=== PATIENT | male | born 1965 | race Caucasian/White ===

== ENCOUNTER 2017-01-03 11:36 | Emergency (ER) | payer MEDICARE, OTHER, SELFPAY | END 2017-01-03 14:17 | disposition short-term general hospital (02) | PROVIDERS: Emergency Provider Emergency Medicine; Visit Provider Emergency Medicine | DX: I50.40 Unspecified combined systolic (congestive) and diastolic (congestive) heart failure (principal); I42.9 Cardiomyopathy, unspecified; N17.9 Acute kidney failure, unspecified; J90 Pleural effusion, not elsewhere classified; Z87.891 Personal history of nicotine dependence; R06.02 Shortness of breath; Z79.01 Long term (current) use of anticoagulants; Z79.899 Other long term (current) drug therapy | CPT/HCPCS: 71020; 80053; 82272; 82550; 82553; 83735; 83880; 84484; 85025; 85610; 85730; 93005; 93041; 96374; 96375; 99284; G0328; J2405 ==

== ENCOUNTER 2017-05-09 20:18 | Emergency (ER) | payer MEDICARE, OTHER, SELFPAY ==
[2017-05-09 20:21] VITALS: BP 121/75; PULSE 97; RESP 18; TEMP 36.8; O2SAT 99; BMI 26.4
[2017-05-09 20:36] VITALS: TEMP 36.8; O2SAT 97; BMI 29.2
[2017-05-09 21:22] VITALS: BP 121/75; PULSE 97; RESP 18; TEMP 36.8; O2SAT 97; BMI 29.2
--- NOTE | 2017-05-09 21:31 | PC.NURSE ---
2054 PATIENT STATED HE DID NOT WANT TO WAIT. LEFT DURING TRIAGE
== END 2017-05-09 21:20 | disposition left against medical advice (07) ==
LOC: ER 21:41
PROVIDERS: Emergency Provider Emergency Medicine
DX: Z53.29 Procedure and treatment not carried out because of patient's decision for other reasons (principal)
CPT/HCPCS: 99282

== ENCOUNTER → 2017-12-25 09:31 | Outpatient (CLI) | payer MEDICARE, OTHER, SELFPAY ==
[2017-12-25 13:50] LABS: Alanine Aminotransferase 44 U/L (12-78); Albumin/Globulin Ratio 1.3 (1.1-1.8); Alkaline Phosphatase 89 U/L (46-116); Anion Gap 9.2 mEq/L (5-15); Aspartate Amino Transferase 18 U/L (15-37); Bilirubin,Total 0.6 mg/dL (0.2-1.0); Blood Urea Nitrogen 21 mg/dL (7-18); Carbon Dioxide 34 mmol/L (21.0-32.0); Chloride 102 mmol/L (98-107); Cholesterol 165 mg/dL (140-200); Creatinine,Serum 1.42 mg/dL (0.70-1.30); Estimated Glomerular Filt Rate 52 ml/min (>60); GFR (African American) 63 ML/MIN (>60); Globulin 3.1 gm/dl (1.3-3.2); Glucose 92 mg/dL (74-106); HDL Cholesterol 33 mg/dL (27-67); LDL Cholesterol 94 mg/dL (0-130); Potassium 4.2 mmoL/L (3.5-5.1); Sodium 141 mmol/L (136-145); Total Protein,Serum 7.1 gm/dL (6.4-8.2); Triglycerides 189 mg/dL (30-200); VLDL Cholesterol 38 mg/dL (0-40)
[2017-12-25 14:14] LABS: Basophils % 0.4 % (0.1-2.0); Eosinophils # 0.3 K/mm3 (0.0-0.4); Eosinophils % 3.4 % (0.1-12.0); Lymphocytes # 0.8 K/mm3 (0.7-4.5); Lymphocytes % 8.7 K/mm3 (10-50); Mean Corpuscular HGB Conc 32.7 g/dL (31.8-35.4); Mean Corpuscular Hemoglobin 29.4 pg (27.0-31.2); Mean Corpuscular Volume 89.9 fl (80-94); Mean Platelet Volume 7.4 fl (7.4-10.4); Monocytes # 0.6 K/mm3 (0.1-1.0); Monocytes % 6.4 % (1.7-9.3); Neutrophils # 7.1 K/mm3 (1.8-7.8); Neutrophils % 81.1 % (37.0-80.0); Platelet Count 245 K/mm3 (142-424); Red Blood Count 5.11 M/mm3 (4.60-6.20); Red Cell Distribution Width 13.4 % (11.5-17.5); White Blood Count 8.8 K/mm3 (4.8-10.8)
== END ==
PROVIDERS: Visit Provider Internal Medicine Adolescent Medicine
DX: I25.10 Atherosclerotic heart disease of native coronary artery without angina pectoris (principal); E78.5 Hyperlipidemia, unspecified
CPT/HCPCS: 36415; 80053; 80061; 85025

== ENCOUNTER → 2018-02-17 14:36 | Outpatient (CLI) | payer MEDICARE, OTHER, SELFPAY ==
[2018-02-17 14:51] LABS: Basophils # 0.1 K/mm3 (0-0.2); Basophils % 0.7 % (0.1-2.0); Eosinophils # 0.4 K/mm3 (0.0-0.4); Hematocrit 45.7 % (42.0-52.0); Hemoglobin 15.1 g/dL (14.1-18.0); Lymphocytes # 1.1 K/mm3 (0.7-4.5); Mean Corpuscular Hemoglobin 29.3 pg (27.0-31.2); Mean Corpuscular Volume 88.9 fl (80-94); Mean Platelet Volume 7.9 fl (7.4-10.4); Monocytes # 0.8 K/mm3 (0.1-1.0); Monocytes % 8.4 % (1.7-9.3); Neutrophils # 6.8 K/mm3 (1.8-7.8); Neutrophils % 74.9 % (37.0-80.0); Platelet Count 298 K/mm3 (142-424); Red Blood Count 5.14 M/mm3 (4.60-6.20); Red Cell Distribution Width 13.3 % (11.5-17.5); White Blood Count 9.1 K/mm3 (4.8-10.8)
[2018-02-17 15:23] LABS: Anion Gap 11.3 mEq/L (5-15); Blood Urea Nitrogen 19 mg/dL (7-18); Calcium 9.1 mg/dL (8.5-10.1); Carbon Dioxide 32 mmol/L (21.0-32.0); Chloride 103 mmol/L (98-107); Creatinine,Serum 1.28 mg/dL (0.70-1.30); Estimated Glomerular Filt Rate 59 ml/min (>60); GFR (African American) 71 ML/MIN (>60); Glucose 100 mg/dL (74-106); Potassium 4.3 mmoL/L (3.5-5.1); Sodium 142 mmol/L (136-145)
== END ==
PROVIDERS: Family Provider Internal Medicine Adolescent Medicine; PCP Internal Medicine Adolescent Medicine; Visit Provider Surgery
DX: K40.90 Unilateral inguinal hernia, without obstruction or gangrene, not specified as recurrent (principal)
CPT/HCPCS: 36415; 80048; 85025

== ENCOUNTER → 2018-06-18 11:36 | Outpatient (CLI) | payer MEDICARE, OTHER, SELFPAY ==
[2018-06-18 16:22] LABS: Amphetamine/Metha Screen,Urine Negative ng/mL (<1000); Barbiturates Screen,Urine Negative ng/mL (<200); Benzodiazepines Screen,Urine Negative ng/mL (<200); Cannabinoid Screen,Urine Negative ng/mL (<50); Cocaine Screen,Urine Negative ng/mL (<300); Methadone Screen,Urine Negative ng/mL (<300); Opiate Screen,Urine Positive ng/mL (<300); Phencyclidine Screen,Urine Negative ng/mL (<25)
[2018-06-24 10:14] LABS: Codeine Negative (Cutoff=100); Hydrocodone Positive (.); Hydromorphone Positive (.); Morphine Negative (Cutoff=100)
[2018-06-24 10:38] LABS: Opiates Positive (.)
== END ==
PROVIDERS: PCP Internal Medicine Adolescent Medicine; Visit Provider Physical Medicine & Rehabilitation
DX: Z79.899 Other long term (current) drug therapy (principal); S39.82XA Other specified injuries of lower back, initial encounter
CPT/HCPCS: 80305; 80361; 80365; G0480

== ENCOUNTER → 2019-06-11 11:11 | Outpatient (CLI) | payer MEDICARE, OTHER, SELFPAY ==
[2019-06-11 14:05] LABS: Amphetamine/Metha Screen,Urine Negative ng/mL (<1000); Barbiturates Screen,Urine Negative ng/mL (<200); Benzodiazepines Screen,Urine Negative ng/mL (<200); Cannabinoid Screen,Urine Negative ng/mL (<50); Cocaine Screen,Urine Negative ng/mL (<300); Methadone Screen,Urine Negative ng/mL (<300); Opiate Screen,Urine Positive ng/mL (<300); Phencyclidine Screen,Urine Negative ng/mL (<25)
[2019-06-17 15:09] LABS: Codeine Negative (Cutoff=100); Hydrocodone Positive (.); Hydromorphone Negative (Cutoff=100); Morphine Negative (Cutoff=100)
[2019-06-17 16:28] LABS: Opiates Positive (.)
== END ==
PROVIDERS: Visit Provider Physical Medicine & Rehabilitation
DX: Z79.899 Other long term (current) drug therapy (principal)
CPT/HCPCS: 80305; 80361; 80365; G0480

== ENCOUNTER → 2020-05-17 11:42 | Outpatient (CLI) | payer MEDICARE, OTHER, SELFPAY ==
[2020-05-17 14:09] LABS: Amphetamine/Metha Screen,Urine Negative ng/ml (<1000)
[2020-05-17 14:10] LABS: Barbiturates Screen,Urine Negative ng/ml (<200)
[2020-05-17 14:11] LABS: Benzodiazepines Screen,Urine Negative ng/ml (<200); Cannabinoid Screen,Urine Negative ng/ml (<50)
[2020-05-17 14:12] LABS: Cocaine Screen,Urine Negative ng/ml (<300)
[2020-05-17 14:13] LABS: Methadone Screen,Urine Negative ng/ml (<300); Opiate Screen,Urine Positive ng/ml (<300)
[2020-05-17 14:14] LABS: Phencyclidine Screen,Urine Negative ng/ml (<25)
[2020-05-24 06:24] LABS: Codeine Negative (Cutoff=100); Hydrocodone Positive (.); Hydromorphone Positive (.); Morphine Negative (Cutoff=100)
[2020-05-25 10:35] LABS: Hydrocodone Confirm 418 ng/mL (Cutoff=100); Hydromorphone Confirm 133 ng/mL (Cutoff=100); Opiates Positive (.)
== END ==
PROVIDERS: Visit Provider Physical Medicine & Rehabilitation
DX: M54.5 Low back pain (principal); S39.82XD Other specified injuries of lower back, subsequent encounter; Z79.899 Other long term (current) drug therapy
CPT/HCPCS: 80305; 80361; G0480

== ENCOUNTER → 2020-08-05 15:03 | Outpatient (CLI) | payer MEDICARE, OTHER, SELFPAY ==
--- NOTE | 2020-08-05 15:07 | CT_ITS ---
PROCEDURE: CT LUMBAR SPINE WO CON CLINICAL HISTORY: LUMBAR NEURALGIA COMPARISON: CT ABDPELW/O CT ABD PELVIS W/O CONTRAST from 01/10/2017 TECHNIQUE: Axial images obtained with sagittal and coronal reformats. All CT scans at the facility use one or more dose reduction, viz: automated exposure control, ma/kV adjustment per patient size (including targeted exams where dose is matched to indication, i.e. head), or iterative reconstruction technique. FINDINGS: There is minimal levoscoliosis of the lumbar spine centered at L1-2 level. Multilevel degenerative changes with endplate sclerosis, loss of disc height and facet joint arthropathy is noted, worse in the lower lumbar levels. Vascular calcification is noted. Diverticula of the visualized colon. The visualized right lung base is clear. Disc osteophyte complexes noted at multiple levels causes mild to moderate canal and bony foraminal narrowing as described below; T12-L1: Mild bilateral facet joint hypertrophy causes mild to moderate right foraminal narrowing. No significant canal or left foraminal narrowing. L1-2: Broad-based disc osteophyte complex, bilateral facet joint hypertrophy is noted causes moderate canal narrowing. There is moderate to severe right and moderate left foraminal narrowing. L2-3: Small broad-based disc bulge, and bilateral facet joint hypertrophy is noted causes mild canal and bilateral foraminal narrowing. L3-4: Broad-based disc osteophyte complex and bilateral uncovertebral hypertrophic change causes moderate to severe canal, and bilateral foraminal narrowing. L4-5: Broad-based disc osteophyte complex, bilateral facet joint and ligamentum flavum hypertrophy causes moderate to severe bilateral foraminal narrowing. Moderate canal narrowing is noted. L5-S1: Small disc osteophyte complex and bilateral facet joint hypertrophy causes mild to moderate bilateral foraminal narrowing. No significant canal narrowing is noted at this level. IMPRESSION: Multilevel degenerative changes of the lumbar spine, worse at L1-2, L3-4 and L4-5 levels as described above. Dictated by: Lizzeth Orta 08/05/2020 17:14 Lizzeth Orta in OV 08/05/2020 17:14
== END ==
PROVIDERS: PCP Internal Medicine Adolescent Medicine; Visit Provider Internal Medicine Adolescent Medicine
DX: M54.16 Radiculopathy, lumbar region (principal)
CPT/HCPCS: 72131

== ENCOUNTER → 2020-12-13 07:31 | Outpatient (CLI) | payer MEDICARE, OTHER, SELFPAY ==
[2020-12-13 14:09] LABS: Chloride 100 mmol/L (98-107); Potassium 4.1 mmoL/L (3.5-5.1); Sodium 142 mmol/L (136-145)
[2020-12-13 14:12] LABS: Anion Gap 15.1 mEq/L (5-15); Blood Urea Nitrogen 20 mg/dl (9-20); Calcium 9.1 mg/dl (8.4-10.2); Carbon Dioxide 31 mmol/L (22.0-30.0); Estimated Glomerular Filt Rate 78 ml/min (>60); GFR (African American) 94 ML/MIN (>60); Glucose 109 mg/dl (74-100)
[2020-12-13 14:17] LABS: NT Pro Brain Natriuretic Pep. 178 pg/mL (0-125)
== END ==
PROVIDERS: Visit Provider Nurse Practitioner Acute Care
DX: I50.20 Unspecified systolic (congestive) heart failure (principal)
CPT/HCPCS: 36415; 80048; 83880

== ENCOUNTER 2021-01-18 16:34 | Emergency (ER) | payer MEDICARE, OTHER, SELFPAY ==
[2021-01-18 16:56] VITALS: BP 136/88; PULSE 98; RESP 18; TEMP 36.8; O2SAT 98; BMI 31.1
--- NOTE | 2021-01-18 17:04 | HMH.EDUTC ---
[facility] [place] Clinical Impression: Encounter for screening for COVID-19 Sinusitis Qualifiers: Sinusitis location: unspecified location Chronicity: unspecified Qualified Code(s): J32.9 - Chronic sinusitis, unspecified Disposition: Home, Self-Care Condition on Discharge: Good Instructions: Sinusitis, Sinus Headache, DI for Sinusitis, DI for COVID-19 (Suspected or Confirmed ) Additional Instructions: *Monitor Temp, Over the counter Motrin or Tylenol as directed/as needed Tylenol every 4 hours and Motrin every 6 hours (as long as your family doctor has told you that you can take it) for fever or pain. and straight to ER if unable to lower temp less than 101.0 after medication given *Warm salt water gargles may help to soothe the throat *Throat Lozenges *Warm fluids like tea with honey may help to soothe the throat *Sleep elevated *Humidifier/Vaporizer Start Oral antibiotics tomorrow Follow up IMMEDIATELY for new or worsening symptoms or no Noticeable improvement over the next 48-72 hours. 911 for difficulty breathing or swallowing You were tested for today for COVID19 your test result should be back in the next 24-48 hours You were tested for today for COVID19 your test result should be back in the next 24-48 hours, You was given a handout with how to log onto [facility] portal to get your results if you have issues logging on or no internet access you may call the [facility] [place] for your results You was given a handout with instructions for Self Quarantine and Self isolation for while you wait on test results and what to do if they are positive If you are positive the Health Dept will be contacting you also Prescriptions: Amoxicillin/Potassium Clav [Augmentin 875-125 Tablet] 1 tab PO Q12H 7 Days #14 tab Transmission Status: Received by [facility] Fluticasone Propionate [Flonase 50mcg nasal spray 16gm] 1 spr NS DAILY #1 each Transmission Status: Received by [facility] Referrals: Armin Leone MD [Primary Care Provider] - As needed Forms: Work/School Release Medical Decision Making - Sandoval Inquiry Pt receiving controlled substance: No Sandoval was queried for this patient: No Vital Signs: 01/18/21 16:56 01/18/21 17:29 Temperature 98.3 F 98 F Temperature Source Oral Pulse Rate 98 H Pulse Rate [Right] 98 H Respiratory Rate 18 18 Blood Pressure 136/88 Blood Pressure [Right Arm] 136/88 Blood Pressure Mean [Right Arm] 104 02 Sat by Pulse Oximetry 98 Orders (Tests/Meds): ED MEDICATIONS Discontinued Medications Generic Name Dose Route Start Last Admin Trade Name Alfredo PRN Reason Stop Dose Admin Ceftriaxone Sodium 1 gm 01/18/21 17:14 01/18/21 17:22 Ceftriaxone 1gm Vial IM 01/18/21 17:15 1 gm ONCE ONE Administration Lidocaine HCl 0 ml 01/18/21 17:14 01/18/21 17:22 Lidocaine 1% 5ml Pf Vial IM 01/18/21 17:15 2.5 ml ONCE ONE Administration ORDERS Category Date Time Status Covid-19 Nasal PCR ([facility]) Routine Lab 01/18/21 17:00 Received Medical Decision Narrative: Patient states that he has taken augmentin and Rocephin in the past without reactions or complications [facility] [place] - General Stated complaint: sinus infection Time Seen by Provider: 01/18/21 17:04 Mode of Arrival: Ambulatory Description of Symptoms (Recalled from Triage Doc. by RN): C/O HEAD COLD, SINUS PRESSURE, CONGESTION & DIZZINESS x1 WEEK. REPORTS 'EVERYONE AT HOME IS SICK BUT NO ONE HAS GOTTEN TESTED FOR COVID' HEENT Symptoms (Recalled from RN notes): Yes Resp Symptoms (Recalled from RN notes): No Skin Symptoms (Recalled from RN notes): No MS Symptoms (Recalled from RN notes): No Functional Status (Recalled from RN notes): WNL - History of Present Illness Provider Complaint: Patient states that he thinks he has a sinus infection States that he feels like he did when he had one last time States that he is having pressure like feeling in his head, behind his eyes and in his teeth States that
[2021-01-18 17:29] VITALS: BP 136/88; PULSE 98; RESP 18; TEMP 36.6
== END 2021-01-18 17:31 | disposition home or self-care (01) ==
PROVIDERS: Emergency Provider Nurse Practitioner; PCP Internal Medicine Adolescent Medicine
DX: J32.9 Chronic sinusitis, unspecified (principal); Z20.822 Contact with and (suspected) exposure to COVID-19; R09.89 Other specified symptoms and signs involving the circulatory and respiratory systems; R42 Dizziness and giddiness; Z79.82 Long term (current) use of aspirin; Z79.899 Other long term (current) drug therapy; Z88.5 Allergy status to narcotic agent; Z88.6 Allergy status to analgesic agent; Z85.118 Personal history of other malignant neoplasm of bronchus and lung; I25.10 Atherosclerotic heart disease of native coronary artery without angina pectoris; K21.9 Gastro-esophageal reflux disease without esophagitis; I10 Essential (primary) hypertension
CPT/HCPCS: 96372; 99203; C9803; G0463; U0003; U0005

== ENCOUNTER 2021-06-19 16:26 | Emergency (ER) | payer MEDICARE, OTHER, SELFPAY ==
[2021-06-19 17:10] VITALS: BP 146/91; PULSE 98; RESP 18; TEMP 36.8; O2SAT 98; BMI 27.8
--- NOTE | 2021-06-19 17:37 | HMH.EDUTC ---
[facility] [place] Disposition Clinical Impression: Low back pain Qualifiers: Chronicity: unspecified Back pain laterality: unspecified Sciatica presence: without sciatica Qualified Code(s): M54.50 - Low back pain, unspecified Disposition: Home, Self-Care Condition on Discharge: Good Instructions: DI for Chronic Pain -- Adult, Methocarbamol Additional Instructions: *Ibuprofen jay jay 6 hours with meal as needed for pain/inflammation if you can take it if not Take Tylenol *Remember you had a Toradol shot in the clinic today, which is similar to Motrin so do not take for the next 10 hours *Not additional anti-inflammatory like motrin, aleve, advil with the above amount of ibuprofen. You can still take Tylenol every 4 hours as needed if you need something else for pain *Ice 20 minutes every 2 hours for the first 48 hours after the initial injury followed by moist heat every 20 minutes 3-4 times a day to affected area *Muscle relaxer every 12 hours as needed for muscle spasms but remember, it WILL cause drowsiness You cannot take it and drive, operate machinery or care for small children. *Keep this area active, no movement leads to more stiffness, However take it easy and avoid heavy lifting pushing or pulling *Follow up with you family doctor if no improvement for further treatment Prescriptions: methocarbamoL [Methocarbamol] 500 mg PO BID PRN #10 tab PRN Reason: Muscle Spasm Transmission Status: Received by [facility] Referrals: Armin Leone MD [Primary Care Provider] - Dev Rodriguez MD [Staff Physician] - Time of Disposition: 17:54 Medical Decision Making - Sandoval Inquiry Pt receiving controlled substance: No Sandoval was queried for this patient: No Vital Signs: 06/19/21 17:10 06/19/21 18:06 Temperature 98.3 F 98.3 F Temperature Source Oral Pulse Rate 98 H Pulse Rate [Right Brachial] 98 H Respiratory Rate 18 18 Blood Pressure 146/91 H Blood Pressure [Right Arm] 146/91 H Blood Pressure Mean [Right Arm] 109 Blood Pressure Source [Right Arm] Automatic Cuff Blood Pressure Position [Right Arm] Sitting 02 Sat by Pulse Oximetry 98 Oxygen Delivery Method Room Air Orders (Tests/Meds): ED MEDICATIONS Discontinued Medications Generic Name Dose Route Start Last Admin Trade Name Freq PRN Reason Stop Dose Admin Ketorolac Tromethamine 15 mg 06/19/21 17:51 06/19/21 18:00 Ketorolac 60mg/2ml Vial IM 06/19/21 17:52 15 mg ONCE ONE Administration Methylprednisolone Sodium Succinate 125 mg 06/19/21 17:51 06/19/21 18:00 Methylprednisolone Sod Succ 125mg Vial IM 06/19/21 17:52 125 mg ONCE ONE Administration Medical Decision Narrative: medication discussed with pharmacy Discussed xray with patient and he declined Patient state pain better after medication [facility] [place] HPI - General Stated complaint: back/nerve pain Time Seen by Provider: 06/19/21 17:47 Mode of Arrival: Ambulatory Source of Information: Patient Limitations: No Limitations Description of Symptoms (Recalled from Triage Doc. by RN): PATIENT C/O BACK PAIN THAT RADIATES TO LEGS X 4 DAYS HEENT Symptoms (Recalled from RN notes): No Resp Symptoms (Recalled from RN notes): No Skin Symptoms (Recalled from RN notes): No MS Symptoms (Recalled from RN notes): Yes Functional Status (Recalled from RN notes): WNL - History of Present Illness Provider Complaint: Patietn states that he has a history of back problems States that he thinks his back is acting up States that for the last few days he has been having pain in his lower back area that goes into his legs States that this is like pain he gets when his back acts up States that he is on medication for it but not helping and he comes in and gets a couple shots and it helps - Related Data Home Medications Medication Instructions Recorded Confirmed aspirin 81 mg tablet,delayed 81 mg PO DAILY 01/03/18 12/11/18 release clonazepam 2 mg tablet 2 mg PO BID 01/03/18 12/11/18 cyclobenza
[2021-06-19 18:06] VITALS: BP 146/91; PULSE 98; RESP 18; TEMP 36.8; O2SAT 98
== END 2021-06-19 18:20 | disposition home or self-care (01) ==
PROVIDERS: Emergency Provider Nurse Practitioner; PCP Internal Medicine Adolescent Medicine
DX: M54.50 Low back pain, unspecified (principal); K21.9 Gastro-esophageal reflux disease without esophagitis; I10 Essential (primary) hypertension; F41.9 Anxiety disorder, unspecified; E78.5 Hyperlipidemia, unspecified
CPT/HCPCS: G0463; 96372; 99202

== ENCOUNTER → 2021-07-17 07:57 | Outpatient (POV) | payer MEDICARE, OTHER, SELFPAY ==
[2021-07-17 08:24] VITALS: BP 149/81; PULSE 65; RESP 20; TEMP 37.5; O2SAT 97; BMI 31.9
--- NOTE | 2021-07-17 10:10 | HMH.PMCON ---
HPI - Data of Consult Patient: new to practice Consult date: 07/17/21 Requesting Physician: Bradford Torres CRNA Primary Care Provider: Tish - Flor Narrative History of present illness: This patient is a pleasant 55-year-old white male that comes our clinic today for initial evaluation regarding lumbar back pain that he describes as achy, sharp and stabbing at times. He rates his pain 7/10. Patient has been treated by a physician in [place] for the last 20 years receiving 5 mg hydrocodone 5 times daily. However, his reason for coming to our clinic today is because his prescribing physician retired. He is now patient of Dr. Gibson. Patient reports his hydrocodone keeps his pain at a minimum. I discussed in detail with the patient regarding his MRI results. Also, injection therapy. Patient is not interested. Patient CT scan on 08/24/2021 reveals multilevel degenerative disc disease lumbar spine. Multilevel facet arthropathy. CC: Bradford Torres CRNA [facility] History Medical History: Reports:: Anxiety, Cancer, Congestive Heart Failure, Coronary Artery Disease, Gastroesophageal Reflux Disease(GERD), Hyperlipidemia, Hypertension, Internal Pacemaker (2018), Lung Disease (hx lung ca), Myocardial Infarction Denies:: Diabetes Mellitus Type 1, Diabetes Mellitus Type 2, MRSA, Seizures *Have you ever received a pneumonia vaccine?: Yes *Have you received a flu vaccine this season?: Yes Other Medical History: Reports: Arthritis. Denies: Blood Transfusion Reaction Other Surgeries: Yes: Appendectomy, Cardiac Catheterization, Cardiac Surgery, Colonoscopy, Coronary Stent, Hernia Repair, Pacemaker (2018), Other Valve Replacement Amputation: No Fractures: No - *Social History Smoking Status: Former smoker Alcohol Intake: never Alcohol Intake Frequency:: holidays/special occasions only Substance Use Type: denies use *Occupational Status:: other Housing: house Household Members: none *Travel in the last 8 weeks: None - Psychiatric History Pschychiatric History:: Reports:: Anxiety Family Hx:: Heart Attack Review of Systems - *Musculoskeletal Comments: Is awake alert oriented x3. In no acute distress. Flexion and extension of the lumbar spine is somewhat guarded secondary to lumbar back pain. Deep tendon reflexes of the lower extremity normal. Motor strength lumbar spine normal. Positive leg raise bilaterally. This movement elicits pain in the lumbar spine. Patient positive for axial back pain left and right. Patient has no acute distress. Gait is normal. Meds Home Medications Medication Instructions Recorded Confirmed Type aspirin 81 mg tablet,delayed 81 mg PO DAILY 01/03/18 07/17/21 History release clonazepam 2 mg tablet 2 mg PO BID 01/03/18 07/17/21 History cyclobenzaprine 10 mg tablet 10 mg PO TID PRN 01/03/18 07/17/21 History diclofenac sodium 75 mg 75 mg PO BID 01/03/18 07/17/21 History tablet,delayed release furosemide 40 mg tablet 40 mg PO DAILY 01/03/18 07/17/21 History hydrocodone 10 mg-acetaminophen 1 tab PO Q6H PRN 01/03/18 07/17/21 History 325 mg tablet metoprolol succinate 25 mg capsule 12.5 mg PO DAILY each 01/03/18 07/17/21 History sprinkle, ext. release 24 hr ranitidine HCl 300 mg capsule 300 mg PO DAILY 01/03/18 07/17/21 History simvastatin 40 mg tablet 40 mg PO QHS 01/03/18 07/17/21 History spironolactone 25 mg tablet 25 mg PO DAILY 01/03/18 07/17/21 History Clopidogrel Bisulfate [Plavix 75mg 75 mg PO DAILY 12/15/18 07/17/21 History Tab] methocarbamoL [Methocarbamol] 500 mg PO BID PRN #10 tab 06/19/21 07/17/21 Rx Amoxicillin [Amoxicillin 500mg 500 mg PO TID 07/17/21 07/17/21 History Cap] Amoxicillin/Potassium Clav 1 tab PO Q12H 07/17/21 07/17/21 History [Augmentin 875-125 Tablet] Cyclobenzaprine HCl 10 mg PO BIDP PRN #20 tab 07/17/21 Rx [Cyclobenzaprine 10mg Tab] Fluticasone Propionate [Flonase 1 spr NS DAILY 07/17/21 07/17/21 History 50mcg nasal spray 16gm]
== END ==
PROVIDERS: Visit Provider Nurse Anesthetist, Certified Registered
DX: M54.50 Low back pain, unspecified (principal)
CPT/HCPCS: 99202; G0463

== ENCOUNTER 2021-07-17 09:03 | Emergency (ER) | payer MEDICARE, OTHER, SELFPAY ==
[2021-07-17 09:05] VITALS: BP 141/84; PULSE 91; RESP 19; TEMP 37.1; O2SAT 98; BMI 39.0
--- NOTE | 2021-07-17 09:41 | HMH.EDUTC ---
[facility] [place]position Clinical Impression: Lumbar back pain with radiculopathy affecting lower extremity Disposition: Home, Self-Care Condition on Discharge: Good Instructions: Low Back Pain, DI for Low Back Pain, Cyclobenzaprine Additional Instructions: Go home and rest. It would be best if you rested tomorrow too. No heavy lifting. No twisting. Take the oral medications as directed. The muscle relaxer (cyclobenzaprine--Flexeril) will make you drowsy, so don't drive or operate heavy machinery after taking it. Don't start the oral steroids (medrol dose pack) until tomorrow, since you had the shots in here today. Follow up with your regular doctor. GO TO THE ER FOR ANY WORSENING SYMPTOMS OR CONCERN, ESPECIALLY BOWEL OR BLADDER ISSUES, SADDLE AREA NUMBNESS, FEVER, ETC Prescriptions: Cyclobenzaprine HCl [Cyclobenzaprine 10mg Tab] 10 mg PO BIDP PRN #20 tab PRN Reason: Muscle Spasm Transmission Status: Received by [facility] methylPREDNISolone [Medrol] 4 mg PO DIRECTED 6 Days #21 packet Transmission Status: Received by [facility] Referrals: Armin Leone MD [Primary Care Provider] - Forms: Work/School Release Time of Disposition: 10:07 Medical Decision Making - Medical Records Medical records reviewed: No: I reviewed the patient's medical records. - Sandoval Inquiry Pt receiving controlled substance: No Vital Signs: 07/17/21 09:05 07/17/21 10:10 Temperature 98.7 F 98.7 F Temperature Source Oral Pulse Rate 91 H Pulse Rate [Right Brachial] 91 H Respiratory Rate 19 19 Blood Pressure 141/84 H Blood Pressure [Right Arm] 141/84 H Blood Pressure Mean [Right Arm] 103 Blood Pressure Source [Right Arm] Automatic Cuff Blood Pressure Position [Right Arm] Sitting 02 Sat by Pulse Oximetry 98 Oxygen Delivery Method Room Air Orders (Tests/Meds): ED MEDICATIONS Discontinued Medications Generic Name Dose Route Start Last Admin Trade Name Freq PRN Reason Stop Dose Admin Ketorolac Tromethamine 60 mg 07/17/21 09:41 07/17/21 10:00 Ketorolac 60mg/2ml Vial IM 07/17/21 09:42 60 mg ONCE ONE Administration Methylprednisolone Sodium Succinate 125 mg 07/17/21 09:41 07/17/21 10:00 Methylprednisolone Sod Succ 125mg Vial IM 07/17/21 09:42 125 mg ONCE ONE Administration [facility] [place] HPI - General Stated complaint: back pain, no accident Time Seen by Provider: 07/17/21 09:41 Mode of Arrival: Ambulatory Source of Information: Patient Limitations: No Limitations Description of Symptoms (Recalled from Triage Doc. by RN): PATIENT C/O INTERMITTEN BACK PAIN FOR MONTHS . REQUESTING TORADOL SHOT HEENT Symptoms (Recalled from RN notes): No Resp Symptoms (Recalled from RN notes): No Skin Symptoms (Recalled from RN notes): No MS Symptoms (Recalled from RN notes): Yes Functional Status (Recalled from RN notes): WNL - History of Present Illness Provider Complaint: He states that he has a 21 year history of issues with low back pain after an injury. He has periodic flare ups. He denies any recent injuries. He states that his pcp has changed his medications around and that has caused him to have this flare up. He denies any bowel or bladder issues. - Related Data Home Medications Medication Instructions Recorded Confirmed aspirin 81 mg tablet,delayed 81 mg PO DAILY 01/03/18 07/17/21 release clonazepam 2 mg tablet 2 mg PO BID 01/03/18 07/17/21 cyclobenzaprine 10 mg tablet 10 mg PO TID PRN 01/03/18 07/17/21 diclofenac sodium 75 mg 75 mg PO BID 01/03/18 07/17/21 tablet,delayed release furosemide 40 mg tablet 40 mg PO DAILY 01/03/18 07/17/21 hydrocodone 10 mg-acetaminophen 1 tab PO Q6H PRN 01/03/18 07/17/21 325 mg tablet metoprolol succinate 25 mg capsule 12.5 mg PO DAILY each 01/03/18 07/17/21 sprinkle, ext. release 24 hr ranitidine HCl 300 mg capsule 300 mg PO DAILY 01/03/18 07/17/21 simvastatin 40 mg tablet 40 mg PO QHS 01/03/18 07/17/21 spironolacto
[2021-07-17 10:10] VITALS: BP 141/84; PULSE 91; RESP 19; TEMP 37.1; O2SAT 98
== END 2021-07-17 10:14 | disposition home or self-care (01) ==
PROVIDERS: Emergency Provider Emergency Medicine; PCP Internal Medicine Adolescent Medicine
DX: M54.16 Radiculopathy, lumbar region (principal)
CPT/HCPCS: G0463; 96372; 99202

== ENCOUNTER 2022-01-06 13:39 | Emergency (ER) | payer MEDICARE, OTHER, SELFPAY ==
[2022-01-06 14:10] VITALS: BP 141/78; PULSE 84; RESP 18; TEMP 36.7; O2SAT 98; BMI 29.0
--- NOTE | 2022-01-06 14:16 | XR_ITS ---
PROCEDURE INFORMATION: Exam: XR Cervical Spine Exam date and time: 01/06/2022 2:12 PM Age: 56 years old Clinical indication: Neck pain and radicular pain (radiculopathy); Cervical region TECHNIQUE: Imaging protocol: Radiologic exam of the cervical spine. Views: 2 or 3 views. COMPARISON: CR XR CHEST 2V 07/03/2019 11:12 AM FINDINGS: Bones/joints: No acute fracture of the cervical spine. No subluxation or dislocation of the cervical spine. Intervertebral disc space narrowing C4 through C7 may represent degenerative disc disease.. Anterior osteophyte formation C4 through C7. Posterior osteophyte formation C4 through C7. Degenerative changes in the facets at multiple levels. Degenerative changes at C1/C2 Soft tissues: Unremarkable. IMPRESSION: 1. No acute fracture of the cervical spine. 2. No subluxation or dislocation of the cervical spine. 3. Intervertebral disc space narrowing C4 through C7 may represent degenerative disc disease..
--- NOTE | 2022-01-06 14:40 | EXP.UTC ---
Discharge Plan Disposition Patient Disposition: Home, Self-Care Condition: Good Prescriptions Prescriptions: No Action clonazepam [Klonopin] 2 mg tablet 2 mg PO BID cyclobenzaprine 10 mg tablet 10 mg PO TID PRN (Reason: pain-back) furosemide [Lasix] 40 mg tablet 40 mg PO DAILY diclofenac sodium 75 mg tablet,delayed release (DR/EC) 75 mg PO BID ranitidine HCl 300 mg capsule 300 mg PO DAILY metoprolol succinate 25 mg capsima,ER 24hr dose pack 12.5 mg PO DAILY spironolactone 25 mg tablet 25 mg PO DAILY simvastatin 40 mg tablet 40 mg PO QHS hydrocodone-acetaminophen [[place]] 10-325 mg tablet 1 tab PO Q6H PRN (Reason: pain) aspirin [Adult Low Dose Aspirin] 81 mg tablet,delayed release (DR/EC) 81 mg PO DAILY clopidogrel 75 MG tablet 75 mg PO DAILY amoxicillin 500 MG capsule 500 mg PO TID fluticasone propionate 120 SPR/BOT bottle 1 spr NS DAILY Rx Instructions: each nostril daily amoxicillin-pot clavulanate 1 EACH tablet 1 tab PO Q12H cyclobenzaprine 10 MG tablet 10 mg PO BIDP PRN (Reason: Muscle Spasm) Qty: 20 0RF methylprednisolone 4 MG tablets,dose pack 4 mg PO DIRECTED 6 Days Qty: 21 0RF methocarbamol 500 MG tablet 500 mg PO BID PRN (Reason: Muscle Spasm) Qty: 10 0RF Referrals Follow up/Referrals: Armin Leone MD [Primary Care Provider] - See instructions Jay Adams JR, MD [Physician] - See instructions Activity Restrictions/Add. Instructions Additional Instructions/Restrictions: Follow up with ortho. Continue taking medication as prescribed. Use aspercreme to assist with discomfort. Follow up with PCP Clinical Impressions Clinical Impression: Cervical radiculopathy due to degenerative joint disease of spine Discharge ED Provider: Gissel Mason [facility] General Stated complaint: Numbess in both arms/hands and neck. Mode of Arrival: Ambulatory Source of Information: Patient Limitations: No Limitations Time Seen by Provider: 01/06/22 14:40 Description of Symptoms (Recalled from Triage Doc. by RN): PATIENT C/O NECK PAIN THAT RADIATES INTO BILATERAL ARMS THAT STARTED THIS MORNING HEENT Symptoms (Recalled from RN notes): No Resp Symptoms (Recalled from RN notes): No Skin Symptoms (Recalled from RN notes): No MS Symptoms (Recalled from RN notes): Yes Functional Status (Recalled from RN notes): WNL History of Present Illness Provider Complaint: Pt relates that he has had pain with his neck and spine for years. He relates that he will often wake with numbness and tingling in his ring and pinkie fingers. This morning he reports that he had the numbness and tingling in his thumb and down his forearm. Pt states that he takes regular pain medication. Related Data Home Medications Medication Instructions Recorded Confirmed aspirin 81 mg tablet,delayed 81 mg PO DAILY prevent 01/03/18 07/17/21 release (Adult Low Dose Aspirin) clonazepam 2 mg tablet (Klonopin) 2 mg PO BID Anxiety 01/03/18 07/17/21 cyclobenzaprine 10 mg tablet 10 mg PO TID PRN pain-back 01/03/18 07/17/21 diclofenac sodium 75 mg 75 mg PO BID Pain 01/03/18 07/17/21 tablet,delayed release furosemide 40 mg tablet (Lasix) 40 mg PO DAILY Fluid 01/03/18 07/17/21 hydrocodone 10 mg-acetaminophen 1 tab PO Q6H PRN pain 01/03/18 07/17/21 325 mg tablet ([place]) metoprolol succinate 25 mg capsule 12.5 mg PO DAILY hr 01/03/18 07/17/21 sprinkle, ext. release 24 hr ranitidine HCl 300 mg capsule 300 mg PO DAILY stomach 01/03/18 07/17/21 simvastatin 40 mg tablet 40 mg PO QHS chlesterol 01/03/18 07/17/21 spironolactone 25 mg tablet 25 mg PO DAILY Fluid 01/03/18 07/17/21 clopidogrel 75 mg tablet 75 mg PO DAILY heart. 12/15/18 07/17/21 amoxicillin 500 mg capsule 500 mg PO TID . 07/17/21 07/17/21 amoxicillin 875 mg-potassium 1 tab PO Q12H . 07/17/21 07/17/21 clavulanate 125 mg tablet fluticasone propionate 50 1 spr NS DAILY .
[2022-01-06 15:14] VITALS: BP 141/78; PULSE 84; RESP 18; TEMP 36.7; O2SAT 98
== END 2022-01-06 15:40 | disposition home or self-care (01) ==
PROVIDERS: Emergency Provider Nurse Practitioner Family; PCP Internal Medicine Adolescent Medicine
DX: M50.10 Cervical disc disorder with radiculopathy, unspecified cervical region (principal)
CPT/HCPCS: 72040; 99212; G0463

== ENCOUNTER 2022-02-23 11:52 | Emergency (ER) | payer MEDICARE, OTHER, SELFPAY ==
--- NOTE | 2022-02-23 12:40 | EXP.UTC ---
Discharge Plan Disposition Patient Disposition: Home, Self-Care Condition: Fair Prescriptions Prescriptions: No Action clonazepam [Klonopin] 2 mg tablet 2 mg PO BID cyclobenzaprine 10 mg tablet 10 mg PO TID PRN (Reason: pain-back) furosemide [Lasix] 40 mg tablet 40 mg PO DAILY diclofenac sodium 75 mg tablet,delayed release (DR/EC) 75 mg PO BID ranitidine HCl 300 mg capsule 300 mg PO DAILY metoprolol succinate 25 mg capsima,ER 24hr dose pack 12.5 mg PO DAILY spironolactone 25 mg tablet 25 mg PO DAILY simvastatin 40 mg tablet 40 mg PO QHS hydrocodone-acetaminophen [Maple] 10-325 mg tablet 1 tab PO Q6H PRN (Reason: pain) aspirin [Adult Low Dose Aspirin] 81 mg tablet,delayed release (DR/EC) 81 mg PO DAILY clopidogrel 75 MG tablet 75 mg PO DAILY amoxicillin 500 MG capsule 500 mg PO TID fluticasone propionate 120 SPR/BOT bottle 1 spr NS DAILY Rx Instructions: each nostril daily amoxicillin-pot clavulanate 1 EACH tablet 1 tab PO Q12H cyclobenzaprine 10 MG tablet 10 mg PO BIDP PRN (Reason: Muscle Spasm) Qty: 20 0RF methylprednisolone 4 MG tablets,dose pack 4 mg PO DIRECTED 6 Days Qty: 21 0RF methocarbamol 500 MG tablet 500 mg PO BID PRN (Reason: Muscle Spasm) Qty: 10 0RF Referrals Follow up/Referrals: Armin Leone MD [Primary Care Provider] - See instructions Activity Restrictions/Add. Instructions Additional Instructions/Restrictions: Follow up with PCP and pain mgmt Clinical Impressions Clinical Impression: Chronic neck pain Instructions Patient Instructions: DI for Chronic Pain -- Adult Discharge ED Provider: Karena Kern [facility] HPI General Stated complaint: Neck pain, no accident Time Seen by Provider: 02/23/22 12:55 History of Present Illness Provider Complaint: Patient presents with chronic neck pain. Has been to [facility] 1 month or so ago for neck pain, numbness and tingling in shoulders and arms. Xray showed DDD. Had CT which showed chronic changes. Sees Dr Leone, who patient states just told him to take extra pain medicine. Saw pain management who gives him Maple TID. Has not seen surgeon. Refuses epidural injections, etc. Onset (ago): unknown Location: neck Relieving factors: none Exacerbating factors: none Associated symptoms: denies other symptoms Treatments prior to arrival: other (Maple) Related Data Home Medications Medication Instructions Recorded Confirmed aspirin 81 mg tablet,delayed 81 mg PO DAILY prevent 01/03/18 07/17/21 release (Adult Low Dose Aspirin) clonazepam 2 mg tablet (Klonopin) 2 mg PO BID Anxiety 01/03/18 07/17/21 cyclobenzaprine 10 mg tablet 10 mg PO TID PRN pain-back 01/03/18 07/17/21 diclofenac sodium 75 mg 75 mg PO BID Pain 01/03/18 07/17/21 tablet,delayed release furosemide 40 mg tablet (Lasix) 40 mg PO DAILY Fluid 01/03/18 07/17/21 hydrocodone 10 mg-acetaminophen 1 tab PO Q6H PRN pain 01/03/18 07/17/21 325 mg tablet ([place]le) metoprolol succinate 25 mg capsule 12.5 mg PO DAILY hr 01/03/18 07/17/21 sprinkle, ext. release 24 hr ranitidine HCl 300 mg capsule 300 mg PO DAILY stomach 01/03/18 07/17/21 simvastatin 40 mg tablet 40 mg PO QHS chlesterol 01/03/18 07/17/21 spironolactone 25 mg tablet 25 mg PO DAILY Fluid 01/03/18 07/17/21 clopidogrel 75 mg tablet 75 mg PO DAILY heart. 12/15/18 07/17/21 amoxicillin 500 mg capsule 500 mg PO TID . 07/17/21 07/17/21 amoxicillin 875 mg-potassium 1 tab PO Q12H . 07/17/21 07/17/21 clavulanate 125 mg tablet fluticasone propionate 50 1 spr NS DAILY . 07/17/21 07/17/21 mcg/actuation nasal spray,suspension Previous Rx's Medication Instructions Recorded methocarbamol 500 mg tablet 500 mg PO BID PRN Muscle Spasm #10 06/19/21 tabs cyclobenzaprine 10 mg tablet 10 mg PO BIDP PRN Muscle Spasm #20 07/17/21 tabs methylprednisolone 4 mg tablets in 4 mg PO DIRECTED 6 days #21 03
[2022-02-23 12:52] VITALS: BP 114/69; PULSE 90; RESP 16; TEMP 36.8; O2SAT 94; BMI 31.9
[2022-02-23 13:47] VITALS: BP 114/69; PULSE 90; RESP 16; TEMP 36.8; O2SAT 94
== END 2022-02-23 13:48 | disposition home or self-care (01) ==
PROVIDERS: Emergency Provider Physician Assistant; PCP Internal Medicine Adolescent Medicine
DX: M54.2 Cervicalgia (principal)
CPT/HCPCS: 96372; 99212; G0463; J1040

== ENCOUNTER 2022-05-04 17:56 | Emergency (ER) | payer MEDICARE, OTHER, SELFPAY ==
[2022-05-04 18:30] VITALS: BP 119/66; PULSE 89; RESP 18; TEMP 36.9; O2SAT 100; BMI 31.9
--- NOTE | 2022-05-04 19:16 | ECG_ITS ---
APPROVED REPORT Exam: Resting ECG HR:84 bpm ECG Measurements Heart Rate 84 AXES UT 158 P 83 QRSd 165 QRS 237 QT 429 T 68 QTc 471 Conclusion ELECTRONIC VENTRICULAR PACEMAKER ABNORMAL RHYTHM ECG UNCONFIRMED REPORT Electronically signed by : Armin Leone MD 05/05/2022 22:00:09
--- NOTE | 2022-05-04 19:39 | XR_ITS ---
PROCEDURE INFORMATION: Exam: XR Chest Exam date and time: 05/04/2022 7:57 PM Age: 56 years old Clinical indication: Shortness of breath; Prior surgery; Additional info: Bradycardia TECHNIQUE: Imaging protocol: Radiologic exam of the chest. Views: 1 view. COMPARISON: CR XR CHEST 2V 07/03/2019 11:12 AM FINDINGS: Tubes, catheters and devices: Cardiac pacing device in the left chest wall. Lungs: Similar volume loss throughout the left hemithorax. Opacification throughout the left hemithorax which is mildly progressive from prior examination. Pleural spaces: Stable blunting of the left costophrenic sulcus. Heart/Mediastinum: Cardiomediastinal contours are not well evaluated. Bones/joints: Median sternotomy wires. IMPRESSION: Opacification throughout the left hemithorax which is mildly progressive from prior examination.
[2022-05-04 20:00] VITALS: BP 120/71; PULSE 96; RESP 16; O2SAT 90
[2022-05-04 20:06] LABS: Basophils # 0.1 K/mm3 (0-0.2); Basophils % 0.7 % (0.1-2.0); Eosinophils # 0.2 K/mm3 (0.0-0.4); Eosinophils % 1.8 % (0.1-12.0); Hematocrit 45.8 % (42.0-52.0); Hemoglobin 15.6 g/dL (14.1-18.0); Lymphocytes # 1.1 K/mm3 (0.7-4.5); Lymphocytes % 8.4 % (10-50); Mean Corpuscular Hemoglobin 31.1 pg (27.0-31.2); Mean Corpuscular Volume 91.5 fl (80-94); Monocytes # 0.7 K/mm3 (0.1-1.0); Monocytes % 5.5 % (1.7-9.3); Neutrophils # 10.6 K/mm3 (1.8-7.8); Neutrophils % 83.7 % (37.0-80.0); Platelet Count 367 K/mm3 (142-424); Red Cell Distribution Width 13.6 % (11.5-17.5); White Blood Count 12.6 K/mm3 (4.8-10.8)
[2022-05-04 20:07] LABS: Chloride 97 mmol/L (98-107); Potassium 4.6 mmoL/L (3.5-5.1); Sodium 140 mmol/L (136-145)
[2022-05-04 20:10] LABS: Blood Urea Nitrogen 27 mg/dl (9-20); Calcium 9.8 mg/dl (8.4-10.2); Creatinine Clearance Estimated 78 mL/min (50-200); Estimated Glomerular Filt Rate 52 ml/min (>60); GFR (African American) 63 ML/MIN (>60); Glucose 91 mg/dl (74-100)
[2022-05-04 20:20] LABS: NT Pro Brain Natriuretic Pep. 212 pg/mL (0-125)
[2022-05-04 20:23] LABS: Troponin I 0.02 ng/ml (0.00-0.034)
[2022-05-04 20:31] VITALS: BP 95/67; PULSE 85; RESP 21; O2SAT 96
--- NOTE | 2022-05-04 20:35 | HMH.EDGENADL ---
Discharge Plan Disposition Patient Disposition: Home, Self-Care Condition: Good Chief Complaint: Weakness Prescriptions Prescriptions: No Action atorvastatin 40 mg tablet 40 mg PO DAILY Label Comments: TAKE 1 TABLET 1 TIME EACH DAY AT BEDTIME carvedilol 3.125 mg tablet 3.125 mg PO BID bumetanide 1 mg tablet 1 mg PO BID Label Comments: TAKE 1 TABLET 2 TIMES EACH DAY Entresto 24-26 mg tablet 1 tab PO BID clonazepam [Klonopin] 2 mg tablet 2 mg PO BID cyclobenzaprine 10 mg tablet 10 mg PO TID PRN (Reason: pain-back) diclofenac sodium 75 mg tablet,delayed release (DR/EC) 75 mg PO BID hydrocodone-acetaminophen [[place]] 10-325 mg tablet 1 tab PO Q6H PRN (Reason: pain) aspirin [Adult Low Dose Aspirin] 81 mg tablet,delayed release (DR/EC) 81 mg PO DAILY spironolactone 25 mg tablet 25 mg PO BID Referrals Follow up/Referrals: Jose R Rosario MD [Primary Care Provider] - See instructions Activity Restrictions/Add. 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 Clinical Impressions Clinical Impression: Atypical chest pain Discharge ED Provider: Jack Antunez General Adult HPI <Daniel Simon MD - Last Filed: 05/04/22 21:30> General Chief complaint: Weakness Stated complaint: low heart rate Time Seen by Provider: 05/04/22 19:39 Mode of Arrival: Ambulatory Limitations: No Limitations Description of Symptoms (Recalled from ER Triage Doc. by RN): PT REPORTS HE WAS WEAK, HAD HEART RATE OF 53 AND NAUSEA THAT STARTED THIS AFTERNOON. History of Present Illness HPI narrative: This is a 56-year-old male with history of numerous GA status post stenting, CABG and pacemaker defibrillator placement, hypoglycemia of unknown etiology, mitral valve repair presenting with generalized weakness and shortness of breath. Patient states that he was walking up the stairs when he began feeling short of breath, however it did not go away. Associated with nausea without vomiting, diaphoresis, shortness of breath and generalized weakness. Patient took baby aspirin with minimal relief. Given symptoms and clinical history, patient came to the ED for further evaluation. Not currently having symptoms on arrival. Related Data Home Medications Medication Instructions Recorded Confirmed aspirin 81 mg tablet,delayed 81 mg PO DAILY prevent 01/03/18 02/28/22 release (Adult Low Dose Aspirin) clonazepam 2 mg tablet (Klonopin) 2 mg PO BID Anxiety 01/03/18 02/28/22 cyclobenzaprine 10 mg tablet 10 mg PO TID PRN pain-back 01/03/18 02/28/22 diclofenac sodium 75 mg 75 mg PO BID Pain 01/03/18 02/28/22 tablet,delayed release hydrocodone 10 mg-acetaminophen 1 tab PO Q6H PRN pain 01/03/18 02/28/22 325 mg tablet ([place]) atorvastatin 40 mg tablet 40 mg PO DAILY HLD 02/28/22 02/28/22 bumetanide 1 mg tablet 1 mg PO BID edema 02/28/22 02/28/22 carvedilol 3.125 mg tablet 3.125 mg PO BID HTN 02/28/22 02/28/22 sacubitril 24 mg-valsartan 26 mg 1 tab PO BID 02/28/22 02/28/22 tablet (Entresto) spironolactone 25 mg tablet 25 mg PO BID Fluid 02/28/22 02/28/22 Allergies Allergy/AdvReac Type Severity Reaction Status Date / Time codeine Allergy Mild Verified 02/28/22 10:05 morphine [MORPHINE] Allergy Unknown Verified 02/28/22 10:05 [facility] <Daniel Simon MD - Last Filed: 05/04/22 21:30> [facility] Disclaimer: The information contained in this section may have been updated after the patient was seen, as this information can be updated by other users. Medical History (Updated 05/04/22 @ 23:53 by Jack Antunez MD) Alcohol abuse Atrial fibrillation CAD (coronary artery disease) Cancer History of heart attack Migraine Pacemaker Surgical History (Updated 02/28/22 @ 12:44 by Jose R Rosario MD)
[2022-05-04 20:40] LABS: Anion Gap 14.6 mEq/L (5-15); Carbon Dioxide 33 mmol/L (22.0-30.0)
--- NOTE | 2022-05-04 20:53 | CT_ITS ---
PROCEDURE INFORMATION: Exam: CTA Chest With Contrast CTA Abdomen With Contrast Exam date and time: 05/04/2022 10:01 PM Age: 56 years old Clinical indication: Dyspnea; Prior surgery; Surgery date: 6+ months; Additional info: Pre syncope/ lung parenchymal disease dyspnea TECHNIQUE: Imaging protocol: Computed tomographic angiography of the chest with contrast. Computed tomographic angiography of the abdomen with contrast. 3D rendering (Not supervised by radiologist): MIP and/or 3D reconstructed images were created by the technologist. Radiation optimization: All CT scans at this facility use at least one of these dose optimization techniques: automated exposure control; mA and/or kV adjustment per patient size (includes targeted exams where dose is matched to clinical indication); or iterative reconstruction. Contrast material: ISOVUE; Contrast volume: 70 ml; Contrast route: INTRAVENOUS (IV); COMPARISON: [facility] CTA-CHEST 09/28/2016 9:22 AM FINDINGS: Tubes, catheters and devices: Cardiac pacing device in the left chest wall. VASCULATURE: Pulmonary arteries: Normal. No pulmonary emboli. Aorta: No aortic aneurysm. No aortic dissection. Celiac trunk and mesenteric arteries: No occlusion or significant stenosis. Renal arteries: No occlusion or significant stenosis. CHEST: Lungs: Apical emphysema. Volume loss within the left hemithorax with scattered streaky and perihilar/peribronchial ground-glass opacities grossly stable from prior examination. Pleural spaces: Loculated appearing pleural thickening which is also similar to prior exam. Heart: Unremarkable. No cardiomegaly. No pericardial effusion. Coronary arteries: Coronary artery calcifications. ABDOMEN AND PELVIS: Liver: No mass. Gallbladder and bile ducts: Unremarkable. No calcified stones. No ductal dilation. Pancreas: Unremarkable. No mass. No ductal dilation. Spleen: Unremarkable. No splenomegaly. Adrenal glands: 10 mm left posterior limb adrenal nodule, most likely an adenoma. Kidneys and ureters: Unremarkable. No solid mass. No hydronephrosis. Stomach and bowel: Unremarkable. No obstruction. No mucosal thickening. Intraperitoneal space: Unremarkable. No free air. No significant fluid collection. Lymph nodes: Unremarkable. No enlarged lymph nodes. Bones/joints: Scoliosis. Median sternotomy wires. No acute fracture. Soft tissues: Bilateral gynecomastia. Other findings: Calcified atherosclerosis. No aneurysm. IMPRESSION: No acute PE. Chronic volume loss within the left hemithorax with pulmonary opacities and loculated appearing pleural thickening which are not significantly changed from prior examination. Continued follow-up is recommended to ensure stability.
--- NOTE | 2022-05-04 21:57 | PC.NURSE ---
Pt gone to RAD
--- NOTE | 2022-05-04 22:05 | PC.NURSE ---
Pt back from RAD
--- NOTE | 2022-05-04 22:14 | PC.NURSE ---
2nd Trop drawn and sent to lab
[2022-05-04 22:49] LABS: Troponin I 0.01 ng/ml (0.00-0.034)
[2022-05-05 00:02] VITALS: BP 105/77; PULSE 82; RESP 18; TEMP 36.6; O2SAT 99
--- NOTE | 2022-05-05 00:04 | PC.NURSE ---
pt requesting disc of images to take to his doctor. Radiology notified.
== END 2022-05-05 00:05 | disposition home or self-care (01) ==
PROVIDERS: Emergency Medicine; Emergency Provider Student in an Organized Health Care Education/Training Program; PCP Family Medicine
DX: R53.1 Weakness (principal); R06.02 Shortness of breath; R11.2 Nausea with vomiting, unspecified; R61 Generalized hyperhidrosis; D72.829 Elevated white blood cell count, unspecified; N17.9 Acute kidney failure, unspecified; I25.10 Atherosclerotic heart disease of native coronary artery without angina pectoris; I48.91 Unspecified atrial fibrillation; I25.2 Old myocardial infarction; M54.9 Dorsalgia, unspecified; G43.909 Migraine, unspecified, not intractable, without status migrainosus; F10.10 Alcohol abuse, uncomplicated; F41.9 Anxiety disorder, unspecified; Z79.899 Other long term (current) drug therapy; Z79.82 Long term (current) use of aspirin; Z88.5 Allergy status to narcotic agent; Z95.5 Presence of coronary angioplasty implant and graft; Z95.1 Presence of aortocoronary bypass graft; Z95.810 Presence of automatic (implantable) cardiac defibrillator; Z87.891 Personal history of nicotine dependence; Z82.49 Family history of ischemic heart disease and other diseases of the circulatory system; Z80.9 Family history of malignant neoplasm, unspecified
CPT/HCPCS: 71045; 71275; 80048; 83880; 84484; 85025; 93005; 99285; Q9967

== ENCOUNTER 2022-05-11 16:11 | Emergency (ER) | payer MEDICARE, OTHER, SELFPAY ==
[2022-05-11 16:23] VITALS: BP 113/80; PULSE 93; RESP 20; TEMP 37; O2SAT 96; BMI 31.9
--- NOTE | 2022-05-11 16:40 | PC.NURSE ---
placed call to [facility] for secretary book keeper public information director for pt.
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
[2022-05-11 17:00] VITALS: BP 108/71; PULSE 86; O2SAT 94
--- NOTE | 2022-05-11 17:04 | PC.NURSE ---
Dr Meyer spoke with Dr Hill at [facility], Dr mcclellan returned call also
--- NOTE | 2022-05-11 17:37 | PC.NURSE ---
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
[2022-05-11 17:53] VITALS: BP 113/80; PULSE 95; RESP 18; TEMP 36.8; O2SAT 96
== END 2022-05-11 17:55 | disposition home or self-care (01) ==
PROVIDERS: Emergency Provider Emergency Medicine; PCP Family Medicine
DX: R00.1 Bradycardia, unspecified (principal); Z95.0 Presence of cardiac pacemaker; I25.10 Atherosclerotic heart disease of native coronary artery without angina pectoris; I50.9 Heart failure, unspecified; Z95.4 Presence of other heart-valve replacement; F10.10 Alcohol abuse, uncomplicated; I48.91 Unspecified atrial fibrillation; I25.2 Old myocardial infarction; Z85.9 Personal history of malignant neoplasm, unspecified; G43.909 Migraine, unspecified, not intractable, without status migrainosus; Z90.89 Acquired absence of other organs; Z86.79 Personal history of other diseases of the circulatory system; Z80.9 Family history of malignant neoplasm, unspecified; Z82.3 Family history of stroke; Z82.49 Family history of ischemic heart disease and other diseases of the circulatory system
CPT/HCPCS: 99283; 99284

== ENCOUNTER → 2022-05-15 06:05 | Outpatient (CLI) | payer MEDICARE, OTHER, SELFPAY ==
[2022-05-15 19:25] LABS: Amphetamine/Metha Screen,Urine Negative ng/ml (<1000)
[2022-05-15 19:26] LABS: Barbiturates Screen,Urine Negative ng/ml (<200); Benzodiazepines Screen,Urine Negative ng/ml (<200)
[2022-05-15 19:27] LABS: Cocaine Screen,Urine Negative ng/ml (<300)
[2022-05-15 19:28] LABS: Cannabinoid Screen,Urine Negative ng/ml (<50); Methadone Screen,Urine Negative ng/ml (<300)
[2022-05-15 19:29] LABS: Opiate Screen,Urine Positive ng/ml (<300); Phencyclidine Screen,Urine Negative ng/ml (<25)
== END ==
PROVIDERS: PCP Family Medicine; Visit Provider Family Medicine
DX: M47.22 Other spondylosis with radiculopathy, cervical region (principal)
CPT/HCPCS: 80305

== ENCOUNTER → 2022-09-03 10:21 | Outpatient (CLI) | payer MEDICARE, OTHER, SELFPAY ==
[2022-09-03 17:14] LABS: Barbiturates Screen,Urine Negative ng/ml (<200)
[2022-09-03 17:15] LABS: Amphetamine/Metha Screen,Urine Negative ng/ml (<1000); Benzodiazepines Screen,Urine Negative ng/ml (<200)
[2022-09-03 17:17] LABS: Cannabinoid Screen,Urine Negative ng/ml (<50); Cocaine Screen,Urine Negative ng/ml (<300)
[2022-09-03 17:18] LABS: Methadone Screen,Urine Negative ng/ml (<300); Opiate Screen,Urine Positive ng/ml (<300)
[2022-09-03 17:19] LABS: Phencyclidine Screen,Urine Negative ng/ml (<25)
== END ==
PROVIDERS: PCP Family Medicine; Visit Provider Family Medicine
DX: M47.22 Other spondylosis with radiculopathy, cervical region (principal)
CPT/HCPCS: 80305

== ENCOUNTER → 2022-12-31 23:10 | Outpatient (CLI) | payer MEDICARE, OTHER, SELFPAY ==
[2022-12-31 17:17] LABS: Amphetamine/Metha Screen,Urine Negative ng/ml (<1000); Barbiturates Screen,Urine Negative ng/ml (<200)
[2022-12-31 17:18] LABS: Benzodiazepines Screen,Urine Negative ng/ml (<200); Cannabinoid Screen,Urine Negative ng/ml (<50)
[2022-12-31 17:19] LABS: Cocaine Screen,Urine Negative ng/ml (<300)
[2022-12-31 17:20] LABS: Methadone Screen,Urine Negative ng/ml (<300); Opiate Screen,Urine Positive ng/ml (<300)
[2022-12-31 17:21] LABS: Phencyclidine Screen,Urine Negative ng/ml (<25)
== END ==
PROVIDERS: PCP Family Medicine; Visit Provider Family Medicine
DX: M47.22 Other spondylosis with radiculopathy, cervical region (principal)
CPT/HCPCS: 80305

== ENCOUNTER 2023-03-05 08:33 | Outpatient (RCR) | payer MEDICARE, OTHER, SELFPAY ==
--- NOTE | 2023-03-05 12:34 | HMH.PTOPEV ---
PT Outpatient Evaluation Rehab PT Outpatient Evaluation Start: 03/05/23 08:53 Freq: Status: Active Protocol: Document 03/05/23 08:53 PDESERMARION (Rec: 03/05/23 10:08 PDESEROUX [id number]) E-signed By Bradford Jaeger, PT Outpatient Therapy Subjective History Subjective History Pt. 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 of insidious onset 6 months ago that has progressively been getting worse. Pt. reports waking up one morning and BUE arms/hands were numb. Pt. 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 Pt. also c/o intermittent headaches, especially w/ stretching. Pt. reports having 3 collapsed discs according to recent diagnostic imaging. Pt. reports symptoms in the cervical spine and BUE hands are constant, reports having some symptom relief w/ resting the head and cervical lateral flexion to the L-side. Pt. reports prescribed pain medicine also provide some symptom relief, but makes pt. lethargic so he only takes at night per pt. report. Current medication list includes Aspirin, Bumetanide, Carvedilol, Cholecalciferol, Clonazepam, Diclofeanc, Simvastatin, and Sprionolactone. 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 New diagnosis of cancer in past 12 No months?
== END 2023-04-09 15:55 | disposition home or self-care (01) ==
LOC: PT 08:33
PROVIDERS: PCP Family Medicine; Visit Provider Nurse Practitioner Family
DX: M47.22 Other spondylosis with radiculopathy, cervical region (principal)
CPT/HCPCS: 97110; 97140; 97163

== ENCOUNTER 2023-03-14 11:43 | Emergency (ER) | payer MEDICARE, OTHER, SELFPAY ==
--- NOTE | 2023-03-14 11:56 | EXP.UTC ---
Discharge Plan Disposition Patient Disposition: Home, Self-Care Condition: Good Prescriptions Prescriptions: New methylprednisolone 4 mg Tablets,Dose Pack 4 mg PO DIRECTED Qty: 21 0RF No Action clonazepam [Klonopin] 2 mg tablet 2 mg PO BID Qty: 60 2RF cyclobenzaprine 10 mg tablet 10 mg PO BID 30 Days Qty: 60 2RF diclofenac sodium 75 mg tablet,delayed release (DR/EC) 75 mg PO BID 30 Days Qty: 60 2RF aspirin 81 mg tablet,delayed release (DR/EC) 81 mg PO DAILY cholecalciferol (vitamin D3) 1,250 mcg (50,000 unit) capsule 50,000 unit PO WEEKLY carvedilol 3.125 mg tablet 3.125 mg PO BID Qty: 180 3RF Entresto 24-26 mg tablet 1 tab PO BID Qty: 180 3RF simvastatin 40 mg tablet 40 mg PO DAILY 30 Days Qty: 30 2RF spironolactone 25 mg tablet 25 mg PO BID 30 Days Qty: 60 2RF bumetanide 1 mg tablet 1 mg PO BID 30 Days Qty: 60 2RF hydrocodone-acetaminophen 10-325 mg tablet 1 tab PO 5XDAY PRN (Reason: pain) Qty: 150 0RF Referrals Follow up/Referrals: Jose R Rosario MD [Primary Care Provider] - See instructions Activity Restrictions/Add. Instructions Additional Instructions/Restrictions: Go home and rest. It would be best if you rested tomorrow too. No heavy lifting. No twisting. Don't start the oral steroids (medrol dose pack) until tomorrow, since you had the shots in here today. Follow up with your regular doctor. GO TO THE ER FOR ANY WORSENING SYMPTOMS OR CONCERNS Clinical Impressions Clinical Impression: Radicular pain Instructions Patient Instructions: DI for Low Back Pain, DI for Neck Pain, Ketorolac Injection, Dexamethasone Injection Discharge ED Provider: Mitch Russell [facility] General Stated complaint: DIZZY, SLEEPY, WEAKNESS, back pain, leg pain Time Seen by Provider: 03/14/23 11:56 History of Present Illness Provider Complaint: He states that he has had low back pain that radiates down both his legs and neck pain that radiates down his right arm for the past several days. He denies any chest pain. He denies any recent fall or injury. He has a long history of similar episodes of pain. He is going to physical therapy for his neck pain. Related Data Home Medications Medication Instructions Recorded Confirmed cholecalciferol (vitamin D3) 1,250 50,000 unit PO WEEKLY 09/03/22 03/14/23 mcg (50,000 unit) capsule aspirin 81 mg tablet,delayed 81 mg PO DAILY 03/01/23 03/01/23 release Previous Rx's Medication Instructions Recorded carvedilol 3.125 mg tablet 3.125 mg PO BID HTN #180 tabs 12/01/22 sacubitril 24 mg-valsartan 26 mg 1 tab PO BID #180 tabs 12/01/22 tablet (Entresto) simvastatin 40 mg tablet 40 mg PO DAILY HLD 30 days #30 tabs 12/28/22 clonazepam 2 mg tablet (Klonopin) 2 mg PO BID Anxiety #60 tabs 12/31/22 cyclobenzaprine 10 mg tablet 10 mg PO BID 30 days #60 tabs 12/31/22 diclofenac sodium 75 mg 75 mg PO BID Pain 30 days #60 tabs 12/31/22 tablet,delayed release bumetanide 1 mg tablet 1 mg PO BID edema 30 days #60 tabs 01/28/23 spironolactone 25 mg tablet 25 mg PO BID Fluid 30 days #60 tabs 01/28/23 hydrocodone 10 mg-acetaminophen 1 tab PO 5XDAY PRN pain #150 tabs 02/28/23 325 mg tablet methylprednisolone 4 mg tablets in 4 mg PO DIRECTED #21 tabs 03/14/23 a dose pack Allergies Allergy/AdvReac Type Severity Reaction Status Date / Time codeine Allergy Mild Verified 03/14/23 12:34 morphine [MORPHINE] Allergy Unknown Verified 03/14/23 12:34 [facility] Disclaimer: The information contained in this section may have been updated after the patient was seen, as this information can be updated by other users. Medical History Alcohol abuse Atrial fibrillation CAD (coronary artery disease) Cancer small cell carcinoma-lung History of heart attack Migraine Pacemaker Surgical History
[2023-03-14 12:10] VITALS: BP 123/70; PULSE 92; RESP 18; TEMP 36.6; O2SAT 98; BMI 32.2
--- NOTE | 2023-03-14 12:19 | ECG_ITS ---
APPROVED REPORT Exam: Resting ECG HR:87 bpm ECG Measurements Heart Rate 87 AXES AL 127 P 79 QRSd 157 QRS 233 QT 421 T 69 QTc 465 Conclusion ELECTRONIC VENTRICULAR PACEMAKER ABNORMAL RHYTHM ECG UNCONFIRMED REPORT Electronically signed by : Armin Leone MD 03/14/2023 17:29:17
[2023-03-14 13:15] VITALS: BP 123/70; PULSE 92; RESP 18; TEMP 36.6; O2SAT 98
== END 2023-03-14 13:15 | disposition home or self-care (01) ==
PROVIDERS: Emergency Provider Nurse Practitioner Family; PCP Family Medicine
DX: M54.12 Radiculopathy, cervical region (principal); M54.16 Radiculopathy, lumbar region; R42 Dizziness and giddiness; Z95.0 Presence of cardiac pacemaker; Z95.5 Presence of coronary angioplasty implant and graft
CPT/HCPCS: 93005; 96372; 99212; 99214; G0463

== ENCOUNTER 2023-06-12 12:05 | Emergency (ER) | payer MEDICARE, OTHER, SELFPAY ==
[2023-06-12 13:11] VITALS: BP 110/66; PULSE 90; RESP 18; TEMP 36.7; O2SAT 98; BMI 32.2
--- NOTE | 2023-06-12 13:21 | EXP.UTC ---
Discharge Plan Disposition Patient Disposition: Home, Self-Care Condition: Good Prescriptions Prescriptions: No Action clonazepam [Klonopin] 2 mg tablet 2 mg PO BID Qty: 60 2RF cyclobenzaprine 10 mg tablet 10 mg PO BID 30 Days Qty: 60 2RF aspirin 81 mg tablet,delayed release (DR/EC) 81 mg PO DAILY cholecalciferol (vitamin D3) 1,250 mcg (50,000 unit) capsule 50,000 unit PO WEEKLY simvastatin 40 mg tablet 40 mg PO DAILY 30 Days Qty: 30 2RF diclofenac sodium 75 mg tablet,delayed release (DR/EC) 75 mg PO BID 30 Days Qty: 60 2RF bumetanide 1 mg tablet 1 mg PO BID 30 Days Qty: 60 2RF spironolactone 25 mg tablet 25 mg PO BID 30 Days Qty: 60 2RF carvedilol 3.125 mg tablet 3.125 mg PO BID Qty: 180 3RF Entresto 24-26 mg tablet 1 tab PO BID Qty: 180 3RF hydrocodone-acetaminophen 10-325 mg tablet 1 tab PO Q4H PRN (Reason: pain) Qty: 180 0RF methylprednisolone 4 mg Tablets,Dose Pack 4 mg PO DIRECTED Qty: 21 0RF Referrals Follow up/Referrals: Jose R Rosario MD [Primary Care Provider] - See instructions Activity Restrictions/Add. Instructions Additional Instructions/Restrictions: Follow up with Dr Rosario as advised Further care per Dr Rosario Follow up with Neurology as scheduled Clinical Impressions Clinical Impression: Radicular pain Instructions Patient Instructions: DI for Chronic Pain -- Adult Discharge ED Provider: Hilary Jose [facility] General Stated complaint: neck pain down the arm Mode of Arrival: Ambulatory Source of Information: Patient Limitations: No Limitations Time Seen by Provider: 06/12/23 13:21 Description of Symptoms (Recalled from Triage Doc. by RN): Patient reports pain and numbness in his extremities. States this has been going on for awhile and just seems to be getting worse. HEENT Symptoms (Recalled from RN notes): No Resp Symptoms (Recalled from RN notes): No Skin Symptoms (Recalled from RN notes): No MS Symptoms (Recalled from RN notes): Yes Functional Status (Recalled from RN notes): wnl History of Present Illness Provider Complaint: Patient states that he has chronic back/neck pain and states that it radiates down into his arms and legs for well over a year States that he has seen his PCP and been referred to Neuro but they cant get him in for a few more months States it has been going on for years but seems to be worse at times States he wasnt sure if there was any test we could do here to see what is going on that hasnt been done States that he has pain medication prescribed by his PCP so he doesnt want anything for pain Related Data Home Medications Medication Instructions Recorded Confirmed cholecalciferol (vitamin D3) 1,250 50,000 unit PO WEEKLY 09/03/22 05/15/23 mcg (50,000 unit) capsule aspirin 81 mg tablet,delayed 81 mg PO DAILY 03/01/23 05/15/23 release Previous Rx's Medication Instructions Recorded clonazepam 2 mg tablet (Klonopin) 2 mg PO BID Anxiety #60 tabs 12/31/22 cyclobenzaprine 10 mg tablet 10 mg PO BID 30 days #60 tabs 12/31/22 methylprednisolone 4 mg tablets in 4 mg PO DIRECTED #21 tabs 03/14/23 a dose pack diclofenac sodium 75 mg 75 mg PO BID Pain 30 days #60 tabs 04/01/23 tablet,delayed release simvastatin 40 mg tablet 40 mg PO DAILY HLD 30 days #30 tabs 04/01/23 bumetanide 1 mg tablet 1 mg PO BID edema 30 days #60 tabs 05/01/23 spironolactone 25 mg tablet 25 mg PO BID Fluid 30 days #60 tabs 05/01/23 carvedilol 3.125 mg tablet 3.125 mg PO BID HTN #180 tabs 05/29/23 hydrocodone 10 mg-acetaminophen 1 tab PO Q4H PRN pain #180 tabs 05/29/23 325 mg tablet sacubitril 24 mg-valsartan 26 mg 1 tab PO BID #180 tabs 05/29/23 tablet (Entresto) Allergies Allergy/AdvReac Type Severity Reaction Status Date / Time codeine Allergy Mild Verified 05/15/23 11:37 morphine [MORPHINE] Allergy Unknown Verified 05/15/23 11:37 Worker's Comp Is this a Worker's Comp case?: No [facility] Disclaimer: The information contained in this section may have been updated after the patient was seen, as this information can be updated by other users. Medical History Alcohol abuse Atrial fibrillation CAD (coronary artery disease) Cancer small cell carcinoma-lung History of heart attack Migraine Pacemaker Surgical History H/O mitral valve repair History of appendectomy History of heart artery stent History of open heart surgery Family History Father Cancer Grandfather Cancer Sister Stroke Other Coronary artery disease Social History Smoking Status: Never smoker alcohol intake: former substance use type: denies use current occupational status: disabled and other Travel in the last 8 weeks: None household members: none housing: house current occupational exposures/hazards: No caffeine: No ROS Obtained: Yes All systems reviewed & no additional complaints except as documented and Yes Systems reviewed as appropriate & no additional complaints except as documented Constitutional Constitutional: Reports system reviewed and no additional complaints, except as documented and Reports as per HPI ENT Ears, Nose, Mouth, and Throat: Reports system reviewed and no additional complaints, except as documented Cardiovascular Cardiovascular: Reports system reviewed and no additional complaints, except as documented Respiratory Respiratory: Reports system reviewed and no additional complaints, except as documented and Reports as per HPI Musculoskeletal Musculoskeletal: Reports system reviewed and no additional complaints, except as documented and Reports as per HPI Comments: Nerve pain, chronic pain in his neck that shoots down into his arms, back and legs Physical Exam General General appearance: alert and in no apparent distress ENT ENT exam: Present mucous membranes moist Respiratory Respiratory exam: Present normal lung sounds bilaterally; Absent respiratory distress or wheezes Cardiovascular Cardiovascular exam: Present regular rate, normal rhythm and normal heart sounds Extremities Exam Extremities exam: Present full ROM (Patient moving all extremities without difficulty); Absent edema, joint swelling or calf tenderness Neurological Exam Neurological exam: Present alert, oriented X3 and normal gait Medical Decision Making Sandoval Inquiry Pt receiving controlled substance: No Sandoval was queried for this patient: No Vital Signs: 06/12/23 13:11 Temperature 98.1 F Temperature Source Oral Pulse Rate [Radial] 90 Respiratory Rate 18 Blood Pressure [Right Arm] 110/66 Blood Pressure Mean [Right Arm] 80 Blood Pressure Source [Right Arm] Automatic Cuff Blood Pressure Position [Right Arm] Sitting 02 Sat by Pulse Oximetry 98 Oxygen Delivery Method Room Air Medical Decision Narrative: Spoke with Dr Rosario and will have patient call office for appointment patient states that he has pain medication just wanting to see if there is any testing that could be done in the [facility] to find out what is wrong for the last couple years Patient advised he would follow up with Dr Rosario
[2023-06-12 14:03] VITALS: BP 117/76; PULSE 75; RESP 19; TEMP 37.2; O2SAT 98
== END 2023-06-12 14:03 | disposition home or self-care (01) ==
PROVIDERS: Emergency Provider Nurse Practitioner; PCP Family Medicine
DX: M54.13 Radiculopathy, cervicothoracic region (principal)
CPT/HCPCS: 99212; 99213; G0463

== ENCOUNTER 2023-06-25 19:48 | Outpatient (CLI) | payer MEDICARE, OTHER, SELFPAY ==
[2023-06-25 17:43] LABS: Barbiturates Screen,Urine Negative ng/ml (<200)
[2023-06-25 17:44] LABS: Cannabinoid Screen,Urine Negative ng/ml (<50)
[2023-06-25 17:45] LABS: Cocaine Screen,Urine Negative ng/ml (<300); Methadone Screen,Urine Negative ng/ml (<300)
[2023-06-25 17:46] LABS: Opiate Screen,Urine Positive ng/ml (<300); Phencyclidine Screen,Urine Negative ng/ml (<25)
[2023-06-25 17:52] LABS: Amphetamine/Metha Screen,Urine Negative ng/ml (<1000)
[2023-06-25 17:55] LABS: Benzodiazepines Screen,Urine Negative ng/ml (<200)
== END 2023-06-25 23:59 ==
LOC: LAB.DROPOF 19:48
PROVIDERS: PCP Family Medicine; Visit Provider Family Medicine
DX: G89.29 Other chronic pain (principal); M54.2 Cervicalgia
CPT/HCPCS: 80307

== ENCOUNTER 2023-07-22 12:06 | Outpatient (CLI) | payer MEDICARE, OTHER, SELFPAY ==
--- NOTE | 2023-07-22 12:11 | XR_ITS ---
FINAL REPORT CLINICAL HISTORY: NECK PAIN COMPARISON: None FINDINGS: 7 views of the cervical spine were obtained including flexion and extension views. There is no acute fracture. There is 8 mm of anterolisthesis of C4 on C5. There is mild and severe degenerative change. There is no significant movement with flexion or extension. There is moderate right at C4-5 and moderate to severe left at L3-4 neural foraminal narrowing. There are mild carotid artery calcifications. IMPRESSION: Degenerative changes without acute bony abnormality. No significant movement with flexion or extension. Reviewed, Interpreted and Dictated by Tyrone Up III, MD Transcribed by Debbie Delacruz Authenticated and [facility]
--- NOTE | 2023-07-22 12:11 | XR_ITS ---
FINAL REPORT CLINICAL HISTORY: BACK PAIN COMPARISON: None FINDINGS: LUMBOSACRAL SPINE SERIES Five views of the lumbosacral spine were obtained. There is no fracture present. There is no malalignment. There is moderate and severe degenerative change. Facet arthropathy is noted at multiple levels. There is multilevel vacuum phenomenon. There are vascular calcifications. IMPRESSION: Moderate and severe degenerative change without acute process. Reviewed, Interpreted and Dictated by Tyrone Up III, MD Transcribed by Debbie Delacruz Authenticated and [facility]
[2023-07-22 12:41] LABS: MANUAL DIFFERENTIAL MANUAL DIFFERENTIAL (MANUAL DIFF)
[2023-07-22 13:12] LABS: Basophils # 0.1 K/mm3 (0-0.2); Basophils % 0.9 % (0.1-2.0); Eosinophils # 0.4 K/mm3 (0.0-0.4); Eosinophils % 4.4 % (0.1-12.0); Hemoglobin 15.1 g/dL (14.1-18.0); Lymphocytes # 1.4 K/mm3 (0.7-4.5); Lymphocytes % 16.3 % (10-50); Mean Corpuscular HGB Conc 34.3 g/dL (31.8-35.4); Mean Corpuscular Hemoglobin 31.4 pg (27.0-31.2); Mean Corpuscular Volume 91.6 fl (80-94); Monocytes # 0.7 K/mm3 (0.1-1.0); Monocytes % 8.2 % (1.7-9.3); Neutrophils # 6.2 K/mm3 (1.8-7.8); Neutrophils % 70.3 % (37.0-80.0); Platelet Count 254 K/mm3 (142-424); Red Blood Count 4.81 M/mm3 (4.60-6.20); Red Cell Distribution Width 13.2 % (11.5-17.5); White Blood Count 8.8 K/mm3 (4.8-10.8)
[2023-07-22 13:39] LABS: Chloride 105 mmol/L (98-107); Potassium 4.2 mmoL/L (3.5-5.1); Sodium 139 mmol/L (136-145)
[2023-07-22 13:41] LABS: Alanine Aminotransferase 38 U/L (12-78); Alkaline Phosphatase 66 U/L (38-126); Aspartate Amino Transferase 33 U/L (17-59); Bilirubin,Total 0.3 mg/dl (0.2-1.3); Blood Urea Nitrogen 19 mg/dl (9-20); Estimated Glomerular Filt Rate 69 ml/min (>60); GFR (African American) 83 ML/MIN (>60)
[2023-07-22 13:42] LABS: Albumin Level 4.4 g/dl (3.5-5.0); Anion Gap 9.2 mEq/L (5-15); Calcium 9.5 mg/dl (8.4-10.2); Carbon Dioxide 29 mmol/L (22.0-30.0); Globulin 2.2 g/dL (1.3-3.2); Glucose 103 mg/dl (74-100); Iron 122 ug/dL (49-181); Total Protein,Serum 6.6 g/dl (6.3-8.2)
[2023-07-22 13:54] LABS: Total Iron Binding Capacity 349 ug/dL (261-462)
[2023-07-22 14:17] LABS: Ferritin 57.2 ng/ml (17.9-464)
[2023-07-22 14:34] LABS: Eosinophils % 5 % (0-3); Lymphocytes % 17 % (10-50); Monocytes % 8 % (2-9); Neutrophils % 70 % (42-76); Platelet Estimate Normal; RBC Morphology Normal; Total Cells Counted 100
[2023-07-22 22:36] LABS: Folate > 20.00 ng/mL; Vitamin B12 544 pg/mL (239-931)
== END 2023-07-22 23:59 ==
LOC: LAB 12:07
PROVIDERS: PCP Family Medicine; Visit Provider Nurse Practitioner Family
DX: M54.2 Cervicalgia (principal); G89.29 Other chronic pain; M47.22 Other spondylosis with radiculopathy, cervical region; M54.50 Low back pain, unspecified; C80.1 Malignant (primary) neoplasm, unspecified; I25.10 Atherosclerotic heart disease of native coronary artery without angina pectoris; I50.9 Heart failure, unspecified; Z79.899 Other long term (current) drug therapy
CPT/HCPCS: 36415; 72052; 72110; 80053; 82607; 82728; 82746; 83540; 83550; 84443; 85007; 85014; 85018; 85048; 85049

== ENCOUNTER 2023-07-25 15:00 | Outpatient (CLI) | payer MEDICARE, OTHER, SELFPAY ==
--- NOTE | 2023-07-25 15:00 | CT_ITS ---
FINAL REPORT CLINICAL HISTORY: NECK PAIN FINDINGS: Axial CT images of the cervical spine were obtained without contrast. Sagittal and coronal reformatted images were also obtained. This study was performed with techniques to keep radiation doses as low as reasonably achievable (ALARA). Individualized dose reduction techniques using automated exposure control or adjustment of mA and/or kV according to the patient''s size were employed. There is no evidence of fracture or dislocation. 5 mm of anterolisthesis is seen of C4 on C5. Multilevel moderate and severe degenerative changes are seen. There is severe disc space narrowing at C4-5, C5-6 and C6-7. Mild central canal stenosis is seen at C4-5. No paraspinous soft tissue abnormality is seen. Limited images of the upper thorax are unremarkable. C2-3: A disc osteophyte complex is present. There is severe right and moderate left neural foraminal narrowing. Mild central canal stenosis is seen with an AP diameter of the thecal sac of 9 mm. C3-4: A disc bulge is present with left uncovertebral osteophytes and severe left facet arthropathy. Mild right and severe left neural foraminal narrowing is seen. There is a probable small central disc protrusion. C4-5: A disc osteophyte complex is present. There is severe bilateral neural foraminal narrowing. Mild central canal stenosis is noted. C5-6: A disc osteophyte complex is present. There is mild bilateral neural foraminal narrowing. C6-7: A disc osteophyte complex is present. Moderate bilateral neural foraminal narrowing is seen. C7-T1: A disc bulge is present with uncovertebral osteophytes. There is mild left neural foraminal narrowing. IMPRESSION: Multilevel degenerative disc disease and spondylosis with multilevel bilateral neural foraminal narrowing as described. Mild central canal stenosis at C2-3 and C4-5. Probable small central disc protrusion at C3-4. Authenticated and [facility]
--- NOTE | 2023-08-15 12:36 | PC.NURSE ---
I have left messages at [phone] with no return calls about a overnight pulse ox.
== END 2023-07-25 23:59 ==
LOC: RAD 15:00
PROVIDERS: PCP Family Medicine; Visit Provider Nurse Practitioner Family
DX: M47.22 Other spondylosis with radiculopathy, cervical region; M54.2 Cervicalgia; G89.29 Other chronic pain
CPT/HCPCS: 72125

== ENCOUNTER 2023-09-23 16:05 | Outpatient (CLI) | payer MEDICARE, OTHER, SELFPAY ==
[2023-09-23 19:22] LABS: Amphetamine/Metha Screen,Urine Negative ng/ml (<1000); Barbiturates Screen,Urine Negative ng/ml (<200)
[2023-09-23 19:23] LABS: Benzodiazepines Screen,Urine Negative ng/ml (<200); Cannabinoid Screen,Urine Negative ng/ml (<50)
[2023-09-23 19:24] LABS: Cocaine Screen,Urine Negative ng/ml (<300)
[2023-09-23 19:25] LABS: Methadone Screen,Urine Negative ng/ml (<300); Opiate Screen,Urine Positive ng/ml (<300)
[2023-09-23 19:26] LABS: Phencyclidine Screen,Urine Negative ng/ml (<25)
== END 2023-09-23 23:59 | disposition home or self-care (01) ==
LOC: LAB.DROPOF 16:05
PROVIDERS: PCP Family Medicine; Visit Provider Family Medicine
DX: Z79.899 Other long term (current) drug therapy (principal)
CPT/HCPCS: 80307

== ENCOUNTER 2023-09-28 12:58 | Emergency (ER) | payer MEDICARE, OTHER, SELFPAY ==
[2023-09-28 12:59] VITALS: BP 131/98; PULSE 97; RESP 18; TEMP 36.4; O2SAT 99; BMI 31.6
[2023-09-28 13:05] VITALS: BP 131/98; PULSE 95; O2SAT 99
--- NOTE | 2023-09-28 13:12 | ED_ITS ---
Discharge Plan Disposition Patient Disposition: Home, Self-Care Condition: Fair Prescriptions Prescriptions: New oxycodone 5 mg tablet 5 mg PO Q8H PRN (Reason: pain) Qty: 10 0RF ketorolac 10 mg tablet 10 mg PO Q8H PRN (Reason: pain) 5 Days Qty: 10 0RF No Action aspirin 81 mg tablet,delayed release (DR/EC) 81 mg PO DAILY hydrocodone-acetaminophen 10-325 mg tablet 1 tab PO Q4H PRN (Reason: pain) Qty: 180 0RF multivitamin Tablet 1 tab PO DAILY carvedilol 3.125 mg tablet 3.125 mg PO BID Qty: 180 3RF simvastatin 40 mg tablet 40 mg PO DAILY 30 Days Qty: 30 2RF clonazepam [Klonopin] 2 mg tablet 2 mg PO BID Qty: 60 2RF diclofenac sodium 75 mg tablet,delayed release (DR/EC) 75 mg PO BID 30 Days Qty: 60 2RF cyclobenzaprine 10 mg tablet 10 mg PO BID 30 Days Qty: 60 2RF spironolactone 25 mg tablet 25 mg PO BID 30 Days Qty: 60 2RF bumetanide 1 mg tablet 1 mg PO BID 30 Days Qty: 60 2RF Entresto 24-26 mg tablet 1 tab PO BID Qty: 180 3RF Referrals Follow up/Referrals: Jose R Rosario MD [Primary Care Provider] - See instructions Activity Restrictions/Add. Instructions Additional Instructions/Restrictions: As we discussed, please follow-up with your spinal specialist at [facility]. Please return with any new or worsening symptoms. Clinical Impressions Clinical Impression: Leg pain, right Instructions Patient Instructions: DI for Low Back Pain Discharge ED Provider: Adalberto Scott General Adult HPI General Chief complaint: Back Pain/Injury Stated complaint: post op 09/24, back/neck/leg pain, difficulty walk Time Seen by Provider: 09/28/23 13:09 History of Present Illness HPI narrative: The patient presents today with concerns about a wet spot on his back that feels cold, which he associates with potential spinal cord issues. He describes experiencing sharp pains running down his leg when standing up, likening the pain to a severe, persistent toothache. This pain began suddenly on Saturday, immediately following a CT scan, and has since escalated to the point where he was unable to get out of bed the following day. His current medication is ineffective in managing this pain. Additionally, he mentions ongoing issues with numbness in his hands, which has been a problem before but has now escalated to the point where he cannot perform daily activities like grocery shopping. He also describes a new burning sensation in his legs, which began after the initial CT scan, and expresses concern about his mobility worsening to the point of potentially needing a wheelchair. He has a history of numbness in his arm, which has progressively worsened, leading to both hands being affected and an inability to turn his palms upward. His leg occasionally gives out due to the pain and burning sensation, which he believes is nerve-related. He has seen a neurologist and undergone a myelogram. He is currently taking pain medication, which he reports as insufficient for pain relief. He expresses significant concern about his ability to sleep and attend upcoming appointments due to these symptoms. Past medical history includes significant conditions such as cancer and heart attacks, and he has a pacemaker, which is not MRI compatible. He also has a history of adverse reactions to medications, including a severe reaction to Jardiance and complications from blood pressure medication that required intensive care. He previously underwent a discectomy several years ago. He is apprehensive about trying new medications due to past adverse reactions. Please note that above description of symptoms, in this electronic medical record under categorization of recalled from ER triage doctor by RN are reflective of an initial nursing assessment, however, is not reflective of my full history and physical exam that was personally taken and clarified. Consequentially, this preceding description of symptoms, which may include the patient's categorized chief complaint in the EMR, do not reflect my personal clinical impression, and the ultimate description of history of present illness and patient stated complaints should be deferred to this section of the note. Unless stated otherwise or congruent with this section of the note, additional signs, symptoms, or incongruence should be interpreted as inaccurate with my clinical impression. Related Data Home Medications Medication Instructions Recorded Confirmed aspirin 81 mg tablet,delayed 81 mg PO DAILY 03/01/23 09/23/23 release multivitamin 1 tab PO DAILY 07/16/23 09/23/23 Previous Rx's Medication Instructions Recorded carvedilol 3.125 mg tablet 3.125 mg PO BID HTN #180 tabs 05/29/23 clonazepam 2 mg tablet (Klonopin) 2 mg PO BID Anxiety #60 tabs 07/03/23 simvastatin 40 mg tablet 40 mg PO DAILY HLD 30 days #30 tabs 07/03/23 diclofenac sodium 75 mg 75 mg PO BID Pain 30 days #60 tabs 07/19/23 tablet,delayed release cyclobenzaprine 10 mg tablet 10 mg PO BID 30 days #60 tabs 07/30/23 bumetanide 1 mg tablet 1 mg PO BID edema 30 days #60 tabs 07/31/23 spironolactone 25 mg tablet 25 mg PO BID Fluid 30 days #60 tabs 07/31/23 sacubitril 24 mg-valsartan 26 mg 1 tab PO BID #180 tabs 08/16/23 tablet (Entresto) hydrocodone 10 mg-acetaminophen 1 tab PO Q4H PRN pain #180 tabs 09/23/23 325 mg tablet ketorolac 10 mg tablet 10 mg PO Q8H PRN pain 5 days #10 09/28/23 tabs oxycodone 5 mg tablet 5 mg PO Q8H PRN pain #10 tabs 09/28/23 Allergies Allergy/AdvReac Type Severity Reaction Status Date / Time codeine Allergy Mild Verified 09/28/23 13:17 morphine [MORPHINE] Allergy Unknown Verified 09/28/23 13:17 [facility] Disclaimer: The information contained in this section may have been updated after the patient was seen, as this information can be updated by other users. Medical History Numbness of lower extremity Tingling of upper extremity Numbness Pacemaker Alcohol abuse CAD (coronary artery disease) Cancer small cell carcinoma-lung Migraine History of heart attack Atrial fibrillation Surgical History History of heart artery stent H/O mitral valve repair History of open heart surgery History of appendectomy Family History Father Cancer Grandfather Cancer Sister Stroke Other Coronary artery disease Social History Smoking Status: Former smoker alcohol intake: former substance use type: denies use current occupational status: disabled and other Travel in the last 8 weeks: None household members: none housing: house marital status: current occupational exposures/hazards: No caffeine: No ROS Obtained: Yes other As per HPI Physical Exam General General appearance: alert and in no apparent distress Head Head exam: atraumatic and normocephalic Eye Eye exam: Present normal appearance Neck Neck exam: Present normal inspection Chest Chest inspection: Present normal inspection and symmetric chest wall rise Respiratory Respiratory exam: Present normal lung sounds bilaterally; Absent respiratory distress Cardiovascular Cardiovascular exam: Present regular rate and normal rhythm Abdominal Exam Abdominal exam: Present soft Neurological Exam Neurological exam: Present alert and oriented X3 Psychiatric Psychiatric exam: Present normal affect and normal mood Skin Skin exam: Present warm and dry Other Other exam information: Several neurologic changes consistent with patient's previously documented severe radiculopathy secondary to degenerative disc disease, paresthesias in bilateral upper extremities, pain over right SI joint, bilateral lower extremity reflexes 2+, motor strength equal and intact in bilateral lower extremities, however intermittently limited secondary to pain. Patient is ambulatory, no midline lumbar tenderness to palpation. Distal pulses intact bilaterally in lower extremities. Medical Decision Making Medical Records Medical records reviewed: Yes I reviewed the patient's medical records. Sandoval Inquiry Pt receiving controlled substance: Yes Sandoval was queried for this patient: Yes Risks and benefits of using a controlled substance: were discussed with pt by me Vital Signs: 09/28/23 12:59 09/28/23 13:05 09/28/23 15:15 Temperature 97.6 F Temperature Source Oral Pulse Rate 95 H 84 Pulse Rate [Left Radial] 97 H Respiratory Rate 18 Blood Pressure 131/98 H 131/98 H Blood Pressure [Right Arm] 131/98 H Blood Pressure Mean [Right Arm] 109 Blood Pressure Source [Right Arm] Automatic Cuff Blood Pressure Position [Right Arm] Sitting 02 Sat by Pulse Oximetry 99 99 98 Oxygen Delivery Method Room Air 09/28/23 16:20 Temperature 98.0 F Temperature Source Pulse Rate 84 Pulse Rate [Left Radial] Respiratory Rate 13 Blood Pressure 131/98 H Blood Pressure [Right Arm] Blood Pressure Mean [Right Arm] Blood Pressure Source [Right Arm] Blood Pressure Position [Right Arm] 02 Sat by Pulse Oximetry Oxygen Delivery Method Lab Data Lab Results 09/28/23 14:08: WBC 8.5, RBC 4.51 L, Hgb 14.0 L, Hct 41.8 L, MCV 92.7, MCH 31.1, MCHC 33.6, RDW 14.0, Plt Count 234, MPV 7.9, Neut % (Auto) 78.6, Lymph % (Auto) 11.7, Mckean % (Auto) 5.1, Eos % (Auto) 3.8, Baso % (Auto) 0.8, Neut # (Auto) 6.7, Lymph # (Auto) 1.0, Mckean # (Auto) 0.4, Eos # (Auto) 0.3, Baso # (Auto) 0.1, ESR 13, Sodium 140, Potassium 4.2, Chloride 100, Carbon Dioxide 31 H, Anion Gap 13.2, BUN 21 H, Creatinine 1.10, Estimated Creat Clear 98, Estimated GFR 69, Est GFR ( Amer) 83, Glucose 139 H, Calcium 10.0, Total Bilirubin 0.5, AST 37, ALT 42, Alkaline Phosphatase 58, C-Reactive Protein 2.4, Total Protein 7.4, Albumin 4.7, Globulin 2.7, Albumin/Globulin Ratio 1.7 09/28/23 14:08 09/28/23 14:08 Orders (Tests/Meds): ED MEDICATIONS Discontinued Medications Generic Name Dose Route Start Last Admin Trade Name Freq PRN Reason Stop Dose Admin Hydrocodone Bitart/Acetaminophen 2 tab 09/28/23 15:27 09/28/23 15:33 Hydrocodone/Apap 5/325 Mg Tablet PO 09/28/23 15:28 2 tab ONCE ONE Administration Ketorolac Tromethamine 15 mg 09/28/23 14:00 09/28/23 14:11 Ketorolac 30mg/Ml Vial IV 09/28/23 14:01 15 mg ONCE ONE Administration ORDERS Category Date Time Status CT cervical spine wo con Stat Cat Scan 09/28/23 14:[address] lumbar spine wo con Stat Cat Scan 09/28/23 14:[address] thoracic spine wo con Stat Cat Scan 09/28/23 14:00 Completed CBC w/Auto Diff [Complete Blood Count Auto Diff] Stat Lab 09/28/23 14:08 Completed CMP [Comprehensive Metabolic Panel] Stat Lab 09/28/23 14:08 Completed CRP [C-Reactive Protein] Stat Lab 09/28/23 14:08 Completed ESR [Erythrocyte Sedimentation Rate] Stat Lab 09/28/23 14:08 Completed Medical Decision Narrative: Patient with history and exam per above presenting for evaluation of back pain following CT myelogram in the setting of degenerative disc disease, radiculopathy Diagnoses considered include radiculopathy, fracture, myelopathy, patient exhibits findings concerning for cauda equina syndrome, upon several different ways of questioning and clarifying patient's symptoms, he reports that the entirety of his symptoms that he is currently experiencing have been present in the past, his chief complaint is in regard to his right lower extremity, which is more painful than it has been in the past, and he is currently experiencing a return of previous radicular symptoms in the absence of trauma. Again, on several ways of inquiring about patient's concerns and complaints, he is chiefly expressing interest in pain control to bridge him to outpatient follow-up. ED workup and treatment included: ED MEDICATIONS Discontinued Medications Generic Name Dose Route Start Last Admin Trade Name Alfredo PRN Reason Stop Dose Admin Hydrocodone Bitart/Acetaminophen 2 tab 09/28/23 15:27 09/28/23 15:33 Hydrocodone/Apap 5/325 Mg Tablet PO 09/28/23 15:28 2 tab ONCE ONE Administration Ketorolac Tromethamine 15 mg 09/28/23 14:00 09/28/23 14:11 Ketorolac 30mg/Ml Vial IV 09/28/23 14:01 15 mg ONCE ONE Administration ORDERS Category Date Time Status CT cervical spine wo con Stat Cat Scan 09/28/23 14:[address] lumbar spine wo con Stat Cat Scan 09/28/23 14:[address] thoracic spine wo con Stat Cat Scan 09/28/23 14:00 Completed CBC w/Auto Diff [Complete Blood Count Auto Diff] Stat Lab 09/28/23 14:08 Completed CMP [Comprehensive Metabolic Panel] Stat Lab 09/28/23 14:08 Completed CRP [C-Reactive Protein] Stat Lab 09/28/23 14:08 Completed ESR [Erythrocyte Sedimentation Rate] Stat Lab 09/28/23 14:08 Completed Labs were independently interpreted by me, ESR, CRP, white blood cell count within normal limits Imaging was independently visualized and interpreted by me, significant for chronic disc disease, no acute findings My clinical impression at this time is most consistent with breakthrough pain in the setting of degenerative disc disease Upon repeat evaluation patient reports some improvement of symptoms. I recommend that I get in contact with his spinal specialist at outside hospital for consultation if he has high concern for new neurologic symptoms. He declines that at this time after discussion of risks. I discussed my clinical impression with patient and answered all questions. At this time, the evidence for any other entities in the differential is insufficient to warrant any further testing or ED observation. This was explained to the patient. The patient was advised that persistent or worsening symptoms require further evaluation. I confirmed the patient's understanding of this discussion. Critical Care Critical Care Time Critical Care Time: No
--- NOTE | 2023-09-28 14:00 | CT_ITS ---
PROCEDURE INFORMATION: Exam: CT Thoracic Spine Without Contrast Exam date and time: 09/28/2023 2:19 PM Age: 57 years old Clinical indication: Weakness; Additional info: Diffuse back pain, rle weakness after CT myelogram TECHNIQUE: Imaging protocol: Computed tomography of the thoracic spine without contrast. Radiation optimization: All CT scans at this facility use at least one of these dose optimization techniques: automated exposure control; mA and/or kV adjustment per patient size (includes targeted exams where dose is matched to clinical indication); or iterative reconstruction. COMPARISON: CT CERVICAL SPINE W CON 09/28/2023 2:16 PM FINDINGS: Bones/joints: There is preservation of vertebral alignment and vertebral body heights. Facet joints are aligned. No acute fracture. There is no significant osseous encroachment of the spinal canal or neural foraminal narrowing at any level. Soft tissues: Unremarkable. Lungs: There is volume loss in the left hemithorax. Region of architectural distortion in the left upper lobe noted. Pleural spaces: Moderate left pleural effusion. IMPRESSION: No acute fracture. No traumatic subluxation.
--- NOTE | 2023-09-28 14:00 | CT_ITS ---
PROCEDURE INFORMATION: Exam: CT Cervical Spine Without Contrast Exam date and time: 09/28/2023 2:16 PM Age: 57 years old Clinical indication: Weakness; Additional info: Diffuse back pain, rle weakness after CT myelogram TECHNIQUE: Imaging protocol: Computed tomography of the cervical spine without contrast. Radiation optimization: All CT scans at this facility use at least one of these dose optimization techniques: automated exposure control; mA and/or kV adjustment per patient size (includes targeted exams where dose is matched to clinical indication); or iterative reconstruction. COMPARISON: CT CERVICAL SPINE WO CON 07/25/2023 3:07 PM FINDINGS: Bones/joints: Unchanged anterolisthesis of C4 over C5. Vertebral alignment is otherwise maintained. There is preservation of vertebral body heights. Facet joints are aligned. Odontoid process is intact. Atlantoaxial interval is maintained. C2-C3: There is a disc osteophyte complex and facet arthropathy. No significant spinal canal stenosis. There is mild bilateral neural foraminal narrowing. C3-C4: No significant spinal canal stenosis. Uncovertebral and facet arthropathy produce mild bilateral neural foraminal narrowing. C4-C5: There is uncovering of the disc. No significant spinal canal stenosis. Uncovertebral and facet arthropathy produce moderate bilateral neural foraminal narrowing. C5-C6: There is a disc osteophyte complex and facet arthropathy. No significant spinal canal stenosis. There is mild bilateral neural foraminal narrowing. C6-C7: There is a disc osteophyte complex and facet arthropathy.No significant spinal canal stenosis. There is moderate bilateral neural foraminal narrowing. C7-T1: No significant disc bulge or herniation. No severe spinal canal stenosis. No significant neural foraminal narrowing. Paranasal sinuses: Mucous retention cyst versus polyp in the right maxillary sinus. Lungs: Lung apices are normal. Soft tissues: Unremarkable. IMPRESSION: 1. Multilevel degenerative changes involving predominantly the uncovertebral and facet joints more pronounced at C4-C5 and C6-C7 levels. 2. Unchanged anterolisthesis of C4 over C5
--- NOTE | 2023-09-28 14:00 | CT_ITS ---
PROCEDURE INFORMATION: Exam: CT Lumbar Spine Without Contrast Exam date and time: 09/28/2023 2:22 PM Age: 57 years old Clinical indication: Weakness; Additional info: Diffuse back pain, rle weakness after CT myelogram TECHNIQUE: Imaging protocol: Computed tomography of the lumbar spine without contrast. Radiation optimization: All CT scans at this facility use at least one of these dose optimization techniques: automated exposure control; mA and/or kV adjustment per patient size (includes targeted exams where dose is matched to clinical indication); or iterative reconstruction. COMPARISON: CT LUMBAR SPINE WO CON 08/05/2020 3:26 PM FINDINGS: Bones/joints: There is preservation of vertebral body heights. Facet joints are aligned. No acute fracture. 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 No acute fracture. L1-L2: There is a disc osteophyte complex and facet arthropathy.There is mild spinal canal stenosis. There is moderate bilateral neural foraminal narrowing. L2-L3: Diffuse disc bulge and facet arthropathy noted. No significant spinal canal stenosis. There is mild bilateral neural foraminal narrowing. L3-L4: There is a disc osteophyte complex and facet arthropathy.There is mild spinal canal stenosis. There is moderate bilateral neural foraminal narrowing. L4-L5: There is a disc osteophyte complex and facet arthropathy. There is mild spinal canal stenosis. There is [id number] bilateral neural foraminal narrowing. L5-S1: Diffuse disc bulge and facet arthropathy noted. No significant spinal canal stenosis. There is mild bilateral neural foraminal narrowing. Vasculature: The aorta demonstrates moderate atherosclerotic calcification. Soft tissues: Unremarkable. IMPRESSION: 1. Multilevel degenerative changes more pronounced at L3-L4 and L4-L5 as detailed above. 2. 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
[2023-09-28] MEDS: KETOROLAC 30MG/ML VIAL 15 MG IV (14:11)
[2023-09-28 14:19] LABS: Basophils # 0.1 K/mm3 (0-0.2); Basophils % 0.8 % (0.1-2.0); Eosinophils # 0.3 K/mm3 (0.0-0.4); Eosinophils % 3.8 % (0.1-12.0); Hematocrit 41.8 % (42.0-52.0); Lymphocytes % 11.7 % (10-50); Mean Corpuscular HGB Conc 33.6 g/dL (31.8-35.4); Mean Corpuscular Hemoglobin 31.1 pg (27.0-31.2); Mean Corpuscular Volume 92.7 fl (80-94); Mean Platelet Volume 7.9 fl (7.4-10.4); Monocytes # 0.4 K/mm3 (0.1-1.0); Monocytes % 5.1 % (1.7-9.3); Neutrophils # 6.7 K/mm3 (1.8-7.8); Neutrophils % 78.6 % (37.0-80.0); Platelet Count 234 K/mm3 (142-424); Red Blood Count 4.51 M/mm3 (4.60-6.20); White Blood Count 8.5 K/mm3 (4.8-10.8)
[2023-09-28 14:25] LABS: Chloride 100 mmol/L (98-107); Potassium 4.2 mmoL/L (3.5-5.1); Sodium 140 mmol/L (136-145)
[2023-09-28 14:27] LABS: Blood Urea Nitrogen 21 mg/dl (9-20); Creatinine Clearance Estimated 98 mL/min (50-200); Estimated Glomerular Filt Rate 69 ml/min (>60); GFR (African American) 83 ML/MIN (>60)
[2023-09-28 14:28] LABS: Alanine Aminotransferase 42 U/L (12-78); Albumin Level 4.7 g/dl (3.5-5.0); Albumin/Globulin Ratio 1.7 (1.1-1.8); Alkaline Phosphatase 58 U/L (38-126); Anion Gap 13.2 mEq/L (5-15); Aspartate Amino Transferase 37 U/L (17-59); Bilirubin,Total 0.5 mg/dl (0.2-1.3); Carbon Dioxide 31 mmol/L (22.0-30.0); Globulin 2.7 g/dL (1.3-3.2); Glucose 139 mg/dl (74-100); Total Protein,Serum 7.4 g/dl (6.3-8.2)
[2023-09-28 14:33] LABS: C-Reactive Protein 2.4 mg/L (0-4)
[2023-09-28 14:49] LABS: Erythrocyte Sedimentation Rate 13 mm/hr (0-20)
[2023-09-28 15:15] VITALS: BP 131/98; PULSE 84; O2SAT 98
[2023-09-28] MEDS: HYDROCODONE/APAP 5/325 MG TABLET 2 TAB PO (15:33)
[2023-09-28 16:20] VITALS: BP 131/98; PULSE 84; RESP 13; TEMP 36.7
== END 2023-09-28 16:21 | disposition home or self-care (01) ==
PROVIDERS: Emergency Provider Emergency Medicine; PCP Family Medicine
DX: M79.604 Pain in right leg (principal); R20.2 Paresthesia of skin; Z86.79 Personal history of other diseases of the circulatory system; Z95.0 Presence of cardiac pacemaker; Z87.891 Personal history of nicotine dependence
CPT/HCPCS: 72125; 72128; 72131; 80053; 85025; 85651; 86140; 96374; 99285

== ENCOUNTER 2023-10-25 14:47 | Emergency (ER) | payer MEDICARE, OTHER, SELFPAY ==
--- NOTE | 2023-10-25 14:50 | EXP.UTC ---
Discharge Plan Disposition Patient Disposition: Home, Self-Care Condition: Undetermined Prescriptions Prescriptions: No Action aspirin 81 mg tablet,delayed release (DR/EC) 81 mg PO DAILY hydrocodone-acetaminophen 10-325 mg tablet 1 tab PO Q4H PRN (Reason: pain) Qty: 180 0RF multivitamin Tablet 1 tab PO DAILY carvedilol 3.125 mg tablet 3.125 mg PO BID Qty: 180 3RF cyclobenzaprine 10 mg tablet 10 mg PO BID 30 Days Qty: 60 2RF spironolactone 25 mg tablet 25 mg PO BID 30 Days Qty: 60 2RF Entresto 24-26 mg tablet 1 tab PO BID Qty: 180 3RF clonazepam [Klonopin] 2 mg tablet 2 mg PO BID Qty: 60 2RF simvastatin 40 mg tablet 40 mg PO DAILY 30 Days Qty: 30 2RF bumetanide 1 mg tablet 1 mg PO BID 30 Days Qty: 60 2RF diclofenac sodium 75 mg tablet,delayed release (DR/EC) 75 mg PO BID 30 Days Qty: 60 2RF oxycodone 5 mg tablet 5 mg PO Q8H PRN (Reason: pain) Qty: 10 0RF ketorolac 10 mg tablet 10 mg PO Q8H PRN (Reason: pain) 5 Days Qty: 10 0RF Referrals Follow up/Referrals: Jose R Rosario MD [Primary Care Provider] - See instructions Clinical Impressions Clinical Impression: Cervical radiculopathy due to degenerative joint disease of spine Instructions Patient Instructions: DI for Chronic Pain -- Adult Discharge ED Provider: Karena Kern [facility] General Stated complaint: pain in neck and arms, no accident Time Seen by Provider: 10/25/23 15:33 History of Present Illness Provider Complaint: Patient states has chronic neck pain, has cervical spondylosis. He has pain radiating down both arms. He takes [place] #180/month. Last filled 09/29. He states that he only has two pills left. He has taken more pain medications than prescribed and he will be out after those two pills. He tried to contact his PCP who writes the pain medications and he is out of town. He cannot get his next month refilled until 10/30. States he is scheduled for neck surgery 11/19. Onset (ago): year(s) Location: neck Radiation: extremity Severity: severe Severity scale (1-10): 9 Quality: burning and aching Relieving factors: none Exacerbating factors: none Treatments prior to arrival: none Related Data Home Medications Medication Instructions Recorded Confirmed aspirin 81 mg tablet,delayed 81 mg PO DAILY 03/01/23 09/23/23 release multivitamin 1 tab PO DAILY 07/16/23 09/23/23 Previous Rx's Medication Instructions Recorded carvedilol 3.125 mg tablet 3.125 mg PO BID HTN #180 tabs 05/29/23 cyclobenzaprine 10 mg tablet 10 mg PO BID 30 days #60 tabs 07/30/23 spironolactone 25 mg tablet 25 mg PO BID Fluid 30 days #60 tabs 07/31/23 sacubitril 24 mg-valsartan 26 mg 1 tab PO BID #180 tabs 08/16/23 tablet (Entresto) hydrocodone 10 mg-acetaminophen 1 tab PO Q4H PRN pain #180 tabs 09/23/23 325 mg tablet ketorolac 10 mg tablet 10 mg PO Q8H PRN pain 5 days #10 09/28/23 tabs oxycodone 5 mg tablet 5 mg PO Q8H PRN pain #10 tabs 09/28/23 clonazepam 2 mg tablet (Klonopin) 2 mg PO BID Anxiety #60 tabs 09/30/23 bumetanide 1 mg tablet 1 mg PO BID edema 30 days #60 tabs 10/21/23 diclofenac sodium 75 mg 75 mg PO BID Pain 30 days #60 tabs 10/21/23 tablet,delayed release simvastatin 40 mg tablet 40 mg PO DAILY HLD 30 days #30 tabs 10/21/23 Allergies Allergy/AdvReac Type Severity Reaction Status Date / Time codeine Allergy Mild Shakiness Verified 10/25/23 15:20 morphine [MORPHINE] Allergy Unknown Shakiness Verified 10/25/23 15:20 [facility] Disclaimer: The information contained in this section may have been updated after the patient was seen, as this information can be updated by other users. Medical History Numbness of lower extremity Tingling of upper extremity Numbness Pacemaker Alcohol abuse CAD (coronary artery disease) Cancer small cell carcinoma-lung Migraine History of heart attack Atrial fibrillation Surgical History History of heart artery stent H/O mitral valve repair History of open heart surgery History of appendectomy Family History Father Cancer Grandfather Cancer Sister Stroke Other Coronary artery disease Social History Smoking Status: Former smoker alcohol intake: former substance use type: denies use current occupational status: disabled and other Travel in the last 8 weeks: None household members: none housing: house marital status: current occupational exposures/hazards: No caffeine: No ROS Obtained: Yes All systems reviewed & no additional complaints except as documented ENT Ears, Nose, Mouth, and Throat: Reports neck pain Musculoskeletal Musculoskeletal: Reports neck pain and Reports radiating pain into limb Physical Exam General General appearance: alert and in no apparent distress Head Head exam: atraumatic and normocephalic Eye Eye exam: Present normal appearance Neck Neck exam: Present full ROM Chest Chest inspection: Present normal inspection and symmetric chest wall rise Respiratory Respiratory exam: Present normal lung sounds bilaterally; Absent respiratory distress Cardiovascular Cardiovascular exam: Present regular rate and normal rhythm Abdominal Exam Abdominal exam: Present soft Neurological Exam Neurological exam: Present alert and oriented X3 Psychiatric Psychiatric exam: Present normal affect and normal mood Skin Skin exam: Present warm and dry Medical Decision Making Medical Records Medical records reviewed: Yes I reviewed the patient's medical records. Sandoval Inquiry Pt receiving controlled substance: No Comment: Patient requesting 5 days of opioid pain medications to get him thru Medical Decision Narrative: Patient requested 5 days of opioid pain medications until he can get them filled again on 10/30. Prescribed #180 Winchester on 09/29 and states only has 2 left. He did have #10 oxycodone sent by ER physician on 09/27. I explained to patient that I am a PA and cannot write narcotic pain medications. He asked if he should go to the ER instead. I told him that was his choice, but I could not guarantee that the ER doctor would write them either and that it was unlikely given that he overused his chronic medications. He stated that he would stop at the liquor store and drink a fifth and hoped he would not crash and .
[2023-10-25 15:13] VITALS: BP 120/76; PULSE 99; RESP 20; TEMP 36.6; O2SAT 98; BMI 32.2
--- NOTE | 2023-10-25 15:45 | PC.NURSE ---
I explained to the pt that we are unable to prescribe narcotics here at the [facility]. Per pts chart he is prescribed 180 lortab tablets for 30 days and is out 5d early. Upon telling the pt we were unable to give him 5d worth of pain medicine he became frustrated and states, I guess I will just go to the [employer] store and hopefully I don't get arrested. At this point I tried to console the patient and see if there were any other ways we may be able to help but he remained frustrated and left at d/c.
[2023-10-25 15:56] VITALS: BP 0/0; PULSE 0; RESP 0; TEMP -17.7; TEMP 0; O2SAT 0
== END 2023-10-25 15:59 | disposition home or self-care (01) ==
PROVIDERS: Emergency Provider Physician Assistant; PCP Family Medicine
DX: M47.22 Other spondylosis with radiculopathy, cervical region (principal); G89.29 Other chronic pain
CPT/HCPCS: 99212; 99213; G0463

== ENCOUNTER 2023-10-28 07:48 | Emergency (ER) | payer MEDICARE, OTHER, SELFPAY ==
[2023-10-28 08:09] VITALS: BP 126/80; PULSE 64; RESP 18; TEMP 36.6; O2SAT 95; BMI 32.2
--- NOTE | 2023-10-28 08:21 | PC.NURSE ---
Dr. Simon at bedside speaking with pt
--- NOTE | 2023-10-28 08:28 | ED_ITS ---
Discharge Plan Disposition Patient Disposition: Home, Self-Care Prescriptions Prescriptions: New prednisone 20 mg tablet 40 mg PO DAILY 5 Days Qty: 10 0RF No Action aspirin 81 mg tablet,delayed release (DR/EC) 81 mg PO DAILY hydrocodone-acetaminophen 10-325 mg tablet 1 tab PO Q4H PRN (Reason: pain) Qty: 180 0RF multivitamin Tablet 1 tab PO DAILY carvedilol 3.125 mg tablet 3.125 mg PO BID Qty: 180 3RF cyclobenzaprine 10 mg tablet 10 mg PO BID 30 Days Qty: 60 2RF spironolactone 25 mg tablet 25 mg PO BID 30 Days Qty: 60 2RF Entresto 24-26 mg tablet 1 tab PO BID Qty: 180 3RF clonazepam [Klonopin] 2 mg tablet 2 mg PO BID Qty: 60 2RF simvastatin 40 mg tablet 40 mg PO DAILY 30 Days Qty: 30 2RF bumetanide 1 mg tablet 1 mg PO BID 30 Days Qty: 60 2RF diclofenac sodium 75 mg tablet,delayed release (DR/EC) 75 mg PO BID 30 Days Qty: 60 2RF oxycodone 5 mg tablet 5 mg PO Q8H PRN (Reason: pain) Qty: 10 0RF ketorolac 10 mg tablet 10 mg PO Q8H PRN (Reason: pain) 5 Days Qty: 10 0RF Referrals Follow up/Referrals: Jose R Rosario MD [Primary Care Provider] - See instructions Activity Restrictions/Add. Instructions Additional Instructions/Restrictions: Call your family doctor to establish care for this visit to the emergency department and schedule follow-up within 48 hours to ensure improvement. If you have any worsening of your condition or any other concerning signs or symptoms, return to the emergency department or your primary care doctor for further evaluation. Clinical Impressions Clinical Impression: Cervical radiculopathy due to degenerative joint disease of spine Discharge ED Provider: Daniel Simon General Adult HPI General Chief complaint: PAIN Stated complaint: neck pain Time Seen by Provider: 10/28/23 07:57 Mode of Arrival: Ambulatory Source of Information: Patient Limitations: No Limitations Description of Symptoms (Recalled from ER Triage Doc. by RN): Patient reports neck pain. Patient reports he is scheduled for sx on the but is out of his pain medication and cannot get it refilled until saturday. History of Present Illness HPI narrative: Please note that above description of symptoms, in this electronic medical record under categorization of recalled from ER triage doctor by RN are reflective of an initial nursing assessment, however, is not reflective of my full history and physical exam that was personally taken and clarified. Consequentially, this preceding description of symptoms, which may include the patient's categorized chief complaint in the EMR, do not reflect my personal clinical impression, and the ultimate description of history of present illness and patient stated complaints should be deferred to this section of the note. Unless stated otherwise or congruent with this section of the note, additional signs, symptoms, or incongruence should be interpreted as inaccurate with my clinical impression. Related Data Home Medications Medication Instructions Recorded Confirmed aspirin 81 mg tablet,delayed 81 mg PO DAILY 03/01/23 09/23/23 release multivitamin 1 tab PO DAILY 07/16/23 09/23/23 Previous Rx's Medication Instructions Recorded carvedilol 3.125 mg tablet 3.125 mg PO BID HTN #180 tabs 05/29/23 cyclobenzaprine 10 mg tablet 10 mg PO BID 30 days #60 tabs 07/30/23 spironolactone 25 mg tablet 25 mg PO BID Fluid 30 days #60 tabs 07/31/23 sacubitril 24 mg-valsartan 26 mg 1 tab PO BID #180 tabs 08/16/23 tablet (Entresto) hydrocodone 10 mg-acetaminophen 1 tab PO Q4H PRN pain #180 tabs 09/23/23 325 mg tablet ketorolac 10 mg tablet 10 mg PO Q8H PRN pain 5 days #10 09/28/23 tabs oxycodone 5 mg tablet 5 mg PO Q8H PRN pain #10 tabs 09/28/23 clonazepam 2 mg tablet (Klonopin) 2 mg PO BID Anxiety #60 tabs 09/30/23 bumetanide 1 mg tablet 1 mg PO BID edema 30 days #60 tabs 10/21/23 diclofenac sodium 75 mg 75 mg PO BID Pain 30 days #60 tabs 10/21/23 tablet,delayed release simvastatin 40 mg tablet 40 mg PO DAILY HLD 30 days #30 tabs 10/21/23 prednisone 20 mg tablet 40 mg (2 x 20 mg) PO DAILY 5 days 10/28/23 #10 tabs Allergies Allergy/AdvReac Type Severity Reaction Status Date / Time codeine Allergy Mild Shakiness Verified 10/25/23 15:20 morphine [MORPHINE] Allergy Unknown Shakiness Verified 10/25/23 15:20 [facility] Disclaimer: The information contained in this section may have been updated after the patient was seen, as this information can be updated by other users. Medical History Numbness of lower extremity Tingling of upper extremity Numbness Pacemaker Alcohol abuse CAD (coronary artery disease) Cancer small cell carcinoma-lung Migraine History of heart attack Atrial fibrillation Surgical History History of heart artery stent H/O mitral valve repair History of open heart surgery History of appendectomy Family History Father Cancer Grandfather Cancer Sister Stroke Other Coronary artery disease Social History Smoking Status: Never smoker alcohol intake: former substance use type: denies use current occupational status: disabled and other Travel in the last 8 weeks: None household members: none housing: house marital status: current occupational exposures/hazards: No caffeine: No ROS Obtained: Yes All systems reviewed & no additional complaints except as documented Physical Exam General General appearance: alert and in no apparent distress Head Head exam: atraumatic and normocephalic Eye Eye exam: Present normal appearance, PERRL and EOMI ENT ENT exam: Present mucous membranes moist Neck Neck exam: Present normal inspection, full ROM, trachea midline and tenderness (Midline spinal tenderness. Exaggerated curvature); Absent meningismus or lymphadenopathy Respiratory Respiratory exam: Absent respiratory distress, wheezes, stridor, accessory muscle use or prolonged expiratory phase Cardiovascular Cardiovascular exam: Present normal rhythm Abdominal Exam Abdominal exam: Present soft; Absent distention, tenderness, guarding, rebound or rigidity Extremities Exam Extremities exam: Absent edema Neurological Exam Neurological exam: Present alert, oriented X3, CN II-XII intact and normal gait; Absent motor sensory deficit Skin Skin exam: Present warm and dry; Absent diaphoresis or erythema Medical Decision Making Medical Records Medical records reviewed: Yes I reviewed the patient's medical records. Sandoval Inquiry Pt receiving controlled substance: No Sandoval was queried for this patient: No Vital Signs: 10/28/23 08:09 Temperature 97.9 F Temperature Source Oral Pulse Rate [Right Brachial] 64 Respiratory Rate 18 Blood Pressure [Right Arm] 126/80 Blood Pressure Mean [Right Arm] 95 Blood Pressure Source [Right Arm] Automatic Cuff Blood Pressure Position [Right Arm] Sitting 02 Sat by Pulse Oximetry 95 Oxygen Delivery Method Room Air Orders (Tests/Meds): ED MEDICATIONS Discontinued Medications Generic Name Dose Route Start Last Admin Trade Name Priyankq PRN Reason Stop Dose Admin Oxycodone HCl 10 mg 10/28/23 08:28 Oxycodone 5mg Immediate Release Tablet PO 10/28/23 08:29 ONCE ONE Prednisone 40 mg 10/28/23 08:28 Prednisone 20mg Tab PO 10/28/23 08:29 ONCE ONE Medical Decision Narrative: This is a 57-year-old male with history of severe osteoarthritis of spine, degenerative disc disease, cervical radiculopathy and neuropathy who has follow- up with spinal surgeon for microdiscectomy and fusion next month, 11/2023 presenting with spasms. Patient states that he has taken all of his pain medications due to increased pain and muscle spasms awaiting surgery next month. Ran out of his pain medication a couple of days prior to this. States that he is unable to get them filled until the . Has been taking clonazepam to help him sleep at night, and still been waking up. No bowel or bladder dysfunction, recent trauma, weakness, or any other concerns. History obtained with patient and chart review. Notably, patient was seen a couple days prior to this in the urgent care and requesting pain medications due to running out as well. On arrival, patient appears very well, anxious, nervous, not maintaining eye contact, speaking quickly. He is neurologically intact, but does have intermittent spasms of his right upper extremity. Differential diagnosis includes muscle spasms, progression of disease, cord compression, pain medication seeking behavior, withdrawal, among others. Is explained to patient that we do not send patients home on chronic pain medications per protocol in the emergency department. Because patient been out of his pain medicines for 3 days and generally takes Lortab 10, patient to be given 1 dose of oxycodone here in the emergency department. I do feel there is a component of opiate withdrawal here during this presentation. Patient also given prednisone 40 mg as I explained that this is source control and will decrease the nerve inflammation causing the muscle spasms. Patient reluctantly agreed. Prednisone to be sent to pharmacy. Because patient at baseline without signs or symptoms of clinical decompensation, deemed appropriate for discharge. Results were relayed to patient who voiced understanding and were agreeable to outpatient management and follow up. I discussed my clinical impression with patient and answered all questions. At this time, the evidence for any other entities in the differential is insufficient to warrant any further testing or ED observation. This was explained as well. Advisory was given that persistent or worsening symptoms require further evaluation. I confirmed the understanding of this discussion. Mitering Machine Operator disclaimer Much of this encounter note is an electronic relocation commissioner spoken language to printed text. Electronic relocation commissioner of the spoken language may permit errors. Although I have reviewed the note, some errors may still exist. Critical Care Critical Care Time Critical Care Time: No
[2023-10-28 08:30] VITALS: BP 115/52; PULSE 76; O2SAT 97
[2023-10-28] MEDS: OXYCODONE 5MG IMMEDIATE RELEASE TABLET 10 MG PO (08:34)
[2023-10-28] MEDS: predniSONE 20MG TAB 40 MG PO (08:34)
[2023-10-28 08:58] VITALS: BP 115/62; PULSE 95; RESP 18; TEMP 36.6; O2SAT 98
== END 2023-10-28 08:58 | disposition home or self-care (01) ==
PROVIDERS: Emergency Provider Emergency Medicine; PCP Family Medicine
DX: M47.22 Other spondylosis with radiculopathy, cervical region (principal); G89.29 Other chronic pain
CPT/HCPCS: 99283

== ENCOUNTER 2024-03-16 15:00 | Outpatient (RCR) | payer MEDICARE, OTHER, SELFPAY ==
--- NOTE | 2024-03-02 16:41 | HMH.PTOPEV ---
PT Outpatient Evaluation Rehab PT Outpatient Evaluation Start: 03/02/24 15:18 Freq: Status: Active Protocol: Document 03/02/24 16:14 LISA (Rec: 03/02/24 16:41 PHORROSENDO [id number]) E-signed By Frank Perez, PT Outpatient Therapy Subjective History Subjective History 58 yo male Pt presents s/p cervical disc surgery of unknown specifics 2 months ago . Pt chief c/o of R arm pain w / difficulty moving the R arm in all directions, specifically flexion and abduction. Pt reports numbness and tingling in the JONNIE UE w/ R > L. Pt reports pain w/ cervical extension and states he feels tingling when going into full extension, stiffness and pain w/ JONNIE lateral flexion, and pain w/ shoulder flexion and abduction . Pt reports a history of heart attacks, lung cancer, open heart surgery, bypass , and reports having a pacemaker . Pt states he takes pain medications at night for sleep , w/ night being the worst w/ his pain. Sxs described as Achy, numb, and tingling . Pt states having occasional headaches and states having severe sleep disturbances due to pain if not taking medication. Pt reports having a back surgery as well w/ unknown specifics. Pt reports history of leg pain and difficulty walking that was resolved by his most recent cervical procedure, but resulted in the new onset of RUE pain. Pt states his pain at best is 2/10, currently 4/ 10, and at worst 9/10. 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 Chief Complaint Pain,Stiff Symptom Type Ache,Numbness,Tingling Symptoms Relieved By Prescription Meds Symptoms Aggravated By Physical Activity Current Functional Limitations Reaching,Lifting,Housework, Dressing,Driving,Sleeping Level of pain today (0-10) 4 Pain scale - at its best (0-10) 2 Pain scale - at its worst (0-10) 9 Cervical Eval AROM Cervical Spine Extension Active Range of 25 Motion (degrees) Cervical Spine Flexion Active Range of 40 Motion (degrees) Cervical Spine Right Lateral Flexion 22 Active Range of Motion (degrees) Cervical Spine Left Lateral Flexion 23 Active Range of Motion (degrees) Cervical Spine Right Rotation Active 45 Range of Motion (degrees) Cervical Spine Left Rotation Active 45 Range of Motion (degrees) MMT Right Deltoid (C5) Not Tested Biceps Brachii Strength Grade 3 Fair Triceps Brachii Strength Grade 4- Good- Left Deltoid (C5) 5 Normal Biceps Brachii Strength Grade 5 Normal Triceps Brachii Strength Grade 5 Normal Altered Sensation Right Upper extremity Dermatomes C5,C6,C7 Comment R feels more different than L, atrophy of R biceps and triceps Shoulder/Elbow Eval Shoulder Objective Measurements Shoulder ROM Right Shoulder Abduction Active Range of 49 Motion (degrees) Shoulder Flexion Active Range of Motion 59 (degrees) Query Text: Left Shoulder Abduction Active Range of 129 Motion (degrees) Shoulder Flexion Active Range of Motion 125 (degrees) Query Text: Elbow Objective Measurements Neck Disability Index Neck Disability Index Section 1: Pain Intensity The pain is fairly severe at the moment Section 2: Personal Care (washing, I can look after myself dressing, etc.) normally without causing extra pain Section 3: Lifting I cannot lift or carry anything Section 4: Reading I can read as much as I want with moderate pain in my neck Section 5: Headaches I have slight headaches, which come infrequently Section 6: Concentration I can concentrate fully when I want to with slight difficulty Section 7: Work I can hardly do any work at all Section 8: Driving I can drive my car as long as I want with moderate pain in my neck Section 9: Sleeping My sleep is completely disturbed (5-7 hrs sleepless) Section 10: Recreation I am able to engage in most, but not all of my usual recreation NDI Score 25 Outpatient Therapy Plan of Care Treatment Plan May Include Therapeutic Exercise Including Home Yes Exercise Program Manual Therapy Techniques Yes Neuromuscular Re-education Yes Therapeutic Activities to Return to Yes Previous Functional/Work Level ADL/Self Care Education Yes Mechanical Traction Yes Dry Needling Yes Thermal Modalities Yes Electrical Stimulation No Massage Yes Eval/Re-Eval Yes Frequency Times per week 2 Duration Number of Weeks 4-6 Addendums This patient is a candidate for social No or vocational rehab? Patient/Guardian verbally acknowledges Yes understanding of treatment program and consents to further treatment? Patient/Guardian verbally acknowledges Yes understanding of diagnosis, prognosis and goals for treatment? Eval Complexity PT Charges 94572 - High Complexity PHYSICIAN CERTIFICATION: I certify the specified therapy services for Osmani Radni are required, authorized, and reviewed every 30 days.
== END 2024-03-16 23:59 | disposition home or self-care (01) ==
LOC: PT 15:00
PROVIDERS: PCP Family Medicine; Visit Provider Family Medicine
DX: M47.12 Other spondylosis with myelopathy, cervical region (principal); R20.2 Paresthesia of skin
CPT/HCPCS: 97110; 97163

== ENCOUNTER 2024-07-10 11:50 | Emergency (ER) | payer MEDICARE, OTHER, SELFPAY ==
[2024-07-10 11:53] VITALS: BP 152/89; PULSE 94; RESP 17; TEMP 36.9; O2SAT 99; BMI 30.4
--- NOTE | 2024-07-10 12:03 | HMH.EDGENADL ---
Discharge Plan Disposition Patient Disposition: Home, Self-Care Condition: Good Prescriptions Prescriptions: New ondansetron 4 mg tablet,disintegrating 4 mg PO QID PRN (Reason: nausea and vomiting) Qty: 10 0RF No Action aspirin 81 mg tablet,delayed release (DR/EC) 81 mg PO DAILY oxycodone-acetaminophen 10-325 mg tablet 1 tab PO Q6H Patient Comments: TAKE 1 TABLET EVERY 6 HOURS multivitamin Tablet 1 tab PO DAILY gabapentin 100 mg tablet 100 mg PO TID Qty: 90 0RF cyclobenzaprine 10 mg tablet 10 mg PO BID 30 Days Qty: 60 2RF Entresto 24-26 mg tablet 1 tab PO BID Qty: 180 3RF simvastatin 40 mg tablet 40 mg PO DAILY 30 Days Qty: 30 2RF clonazepam [Klonopin] 2 mg tablet 2 mg PO BID 30 Days Qty: 60 2RF spironolactone 25 mg tablet See Rx Instructions .ROUTE .COMPLEX Qty: 60 2RF Dose Instruction: TAKE 1 TABLET 2 TIMES EACH DAY FOR SWELLING Rx Instructions: TAKE 1 TABLET 2 TIMES EACH DAY FOR SWELLING bumetanide 1 mg tablet See Rx Instructions .ROUTE .COMPLEX Qty: 60 2RF Dose Instruction: TAKE 1 TABLET 2 TIMES EACH DAY FOR SWELLING Rx Instructions: TAKE 1 TABLET 2 TIMES EACH DAY FOR SWELLING diclofenac sodium 75 mg tablet,delayed release (DR/EC) 75 mg PO BID 30 Days Qty: 60 2RF Referrals Follow up/Referrals: Dev Rodriguez MD [Staff Physician] - See instructions Jose R Rosario MD [Primary Care Provider] - See instructions Activity Restrictions/Add. Instructions Additional Instructions/Restrictions: As we discussed please call and make your appointment with pain management in the morning. If you have any continued new or worsening signs or symptoms follow-up with your PCP or return to the ER as needed. Clinical Impressions Clinical Impression: Cervicalgia of [id number] region Print Language Print Language: Turkmen Discharge ED Provider: Keila Mccauley General Adult HPI <NADIR Goodson - Last Filed: 07/10/24 13:42> General Chief complaint: PAIN Stated complaint: Headache, neck and back pain Time Seen by Provider: 07/10/24 12:03 History of Present Illness HPI narrative: Patient presents for exacerbation of his chronic neck and back pain. Patient has longstanding history of degenerative spine disease and actually is 5 months post cervical fusion. Patient reports that he was driving in [place] yesterday which usually is very stressful for him. He reports that his pain is worse but denies any numbness tingling loss of motor or sensory. This is a chronic issue with an acute flare and usually Toradol works. Patient reports that he does not have tolerance to opiates and utilizes nonsteroidals and Toradol from time to time when he has flares. He also reports he is intolerant to muscle relaxers and he does not feel safe taking them. He denies any chest pain shortness of breath fever chills mops this [facility] nausea vomiting diarrhea. Related Data Home Medications ?Medication ?Instructions ?Recorded ?Confirmed aspirin 81 mg tablet,delayed 81 mg PO DAILY 03/01/23 06/30/24 release multivitamin 1 tab PO DAILY 07/16/23 06/30/24 oxycodone-acetaminophen 10 mg-325 1 tab PO Q6H 02/24/24 06/30/24 mg tablet Previous Rx's ?Medication ?Instructions ?Recorded cyclobenzaprine 10 mg tablet 10 mg PO BID 30 days #60 tabs 07/30/23 sacubitril 24 mg-valsartan 26 mg 1 tab PO BID #180 tabs 08/16/23 tablet (Entresto) clonazepam 2 mg tablet (Klonopin) 2 mg PO BID Anxiety 30 days #60 03/23/24 tabs simvastatin 40 mg tablet 40 mg PO DAILY HLD 30 days #30 tabs 03/23/24 spironolactone 25 mg tablet See Rx Instructions .Route 06/01/24 .COMPLEX #60 tabs bumetanide 1 mg tablet See Rx Instructions .Route 06/29/24 .COMPLEX #60 tabs diclofenac sodium 75 mg 75 mg PO BID Pain 30 days #60 tabs 06/29/24 tablet,delayed release gabapentin 100 mg tablet 100 mg PO TID #90 tabs 06/30/24 ondansetron 4 mg disintegrating 4 mg PO QID PRN nausea and 07/10/24 tablet vomiting #10 tabs Allergies Allergy/AdvReac Type Severity Reaction Status Date / Time codeine Allergy Mild Shakiness Verified 06/30/24 14:07 morphine (MORPHINE) Allergy Unknown Shakiness Verified 06/30/24 14:07 [facility] <NADIR Goodson - Last Filed: 07/10/24 13:42> [facility] Disclaimer: The information contained in this section may have been updated after the patient was seen, as this information can be updated by other users. Medical History Numbness of lower extremity Tingling of upper extremity Numbness Pacemaker Alcohol abuse CAD (coronary artery disease) Cancer small cell carcinoma-lung Migraine History of heart attack Atrial fibrillation Surgical History History of heart artery stent H/O mitral valve repair History of open heart surgery History of appendectomy Family History Father Cancer Grandfather Cancer Sister Stroke Other Coronary artery disease Social History Smoking Status: Never smoker alcohol intake: former substance use type: denies use current occupational status: disabled and other Travel in the last 8 weeks: None household members: none housing: house marital status: current occupational exposures/hazards: No caffeine: No Have you lived/traveled outside [place] in past 30 days?: No Contact w/someone who lives/traveled outside [place] past 30 days?: No Exposure to someone with infectious disease in past 14 days?: No Do you have a fever (greater than 100.4 F or 38 C)?: No Have you tested positive for COVID-19: No Exposed to someone with COVID-19 in past 14 days?: No Do you have a sore throat?: No Do you have a cough?: No Do you have any weakness?: No Do you have any diarrhea?: No Are you experiencing any unusual bleeding?: No Do you have any muscle aches/pain?: No Do you have any abdominal pain?: No Are you experiencing loss of taste or smell?: No Other Medical History Have you received the Flu Vaccine for this season: Yes Have you received the Pneumonia Vaccine: No <NADIR Goodson - Last Filed: 07/10/24 13:42> ROS Obtained: Yes Systems reviewed as appropriate & no additional complaints except as documented Physical Exam <NADIR Goodson - Last Filed: 07/10/24 13:42> General General appearance: alert Respiratory Respiratory exam: Present normal lung sounds bilaterally Cardiovascular Cardiovascular exam: Present regular rate Neurological Exam Neurological exam: Present alert, oriented X3, CN II-XII intact and normal gait; Absent motor sensory deficit Medical Decision Making <NADIR Goodson - Last Filed: 07/10/24 13:42> Medical Records Medical records reviewed: Yes I reviewed the patient's medical records. Screening: Per USPSTF and CDC recommendations, given the prevalence of disease in our region, it is our hospital?s policy to screen for HIV and viral Hepatitis for all patients aged 18 and over and those with ongoing risk factors. [place] Inquiry Pt receiving controlled substance: No Vital Signs: 07/10/24 11:53 07/10/24 12:53 Temperature 98.4 F 98.3 F Temperature Source Oral Pulse Rate 87 Pulse Rate [Left Radial] 94 H Respiratory Rate 17 17 Blood Pressure 147/58 H Blood Pressure [Right Arm] 152/89 H Blood Pressure Mean [Right Arm] 110 Blood Pressure Source Automatic Cuff Blood Pressure Source [Right Arm] Automatic Cuff Blood Pressure Position [Right Arm] Sitting 02 Sat by Pulse Oximetry 99 Oxygen Delivery Method Room Air Room Air Orders (Tests/Meds): ED MEDICATIONS Discontinued Medications Generic Name Dose Route Start Last Admin Trade Name Freq PRN Reason Stop Dose Admin Ketorolac Tromethamine 30 mg 07/10/24 12:16 07/10/24 12:31 Ketorolac 30mg/Ml Vial IM 07/10/24 12:17 30 mg ONCE ONE Administration Methylprednisolone Sodium Succinate 125 mg 07/10/24 12:16 07/10/24 12:31 Methylprednisolone Sod Succ 125mg Vial IM 07/10/24 12:17 125 mg ONCE ONE Administration Ondansetron HCl 4 mg 07/10/24 12:16 07/10/24 12:31 Ondansetron 4mg Odt SL 07/10/24 12:17 4 mg ONCE ONE Administration Medical Decision Narrative: In summary patient is a 58-year-old male who presents to the emergency department for evaluation of acute exacerbation of chronic cervicalgia. Patient is hemodynamically stable upon arrival, afebrile. Physical exam is remarkable for taut trapezius muscles bilaterally slightly tender to palpation however patient has no midline cervical tenderness. He has no nuchal rigidity or congeal signs. Patient is neurovascularly intact in his bilateral upper extremities with full range of motion.. Differential diagnosis includes acute on chronic cervicalgia versus muscle spasm versus torticollis etc. I had a shared decision-making discussion with the patient regarding his LEONARDO presentation and findings. Via patient directed decision making and discharge patient does not feel that he has any new symptoms, he does not want to do blood work or imaging and simply requests Toradol. I discussed with him whether or not he has tried IM steroids in the past and he reports that he has not. I offered in addition to the IM Toradol shot of IM steroids as well. Patient was agreeable to that. He also requested referral to a different pain management as he would like different options and he is currently getting with shots and injections. Given this I consider doing labs and imaging for LEONARDO but deferred at the patient's request. Initial intervention will be 30 mg IM Toradol and 125 IM of Solu-Medrol which patient agreed to. Additionally patient would like a referral to pain management and I will refer him to Dr. Rodriguez. Given this patient is appropriate for discharge with close follow-up with his PCP, referral to Dr. Rodriguez of pain management and if he has any continued new or worsening signs or symptoms return to the emergency department as needed. <Keila Mccauley MD - Last Filed: 07/10/24 15:45> Vital Signs: 07/10/24 11:53 07/10/24 12:53 Temperature 98.4 F 98.3 F Temperature Source Oral Pulse Rate 87 Pulse Rate [Left Radial] 94 H Respiratory Rate 17 17 Blood Pressure 147/58 H Blood Pressure [Right Arm] 152/89 H Blood Pressure Mean [Right Arm] 110 Blood Pressure Source Automatic Cuff Blood Pressure Source [Right Arm] Automatic Cuff Blood Pressure Position [Right Arm] Sitting 02 Sat by Pulse Oximetry 99 Oxygen Delivery Method Room Air Room Air Orders (Tests/Meds): ED MEDICATIONS Discontinued Medications Generic Name Dose Route Start Last Admin Trade Name Freq PRN Reason Stop Dose Admin Ketorolac Tromethamine 30 mg 07/10/24 12:16 07/10/24 12:31 Ketorolac 30mg/Ml Vial IM 07/10/24 12:17 30 mg ONCE ONE Administration Methylprednisolone Sodium Succinate 125 mg 07/10/24 12:16 07/10/24 12:31 Methylprednisolone Sod Succ 125mg Vial IM 07/10/24 12:17 125 mg ONCE ONE Administration Ondansetron HCl 4 mg 07/10/24 12:16 07/10/24 12:31 Ondansetron 4mg Odt SL 07/10/24 12:17 4 mg ONCE ONE Administration Medical Decision Narrative: In summary patient is a 58-year-old male who presents to the emergency department for evaluation of acute exacerbation of chronic cervicalgia. Patient is hemodynamically stable upon arrival, afebrile. Physical exam is remarkable for taut trapezius muscles bilaterally slightly tender to palpation however patient has no midline cervical tenderness. He has no nuchal rigidity or congeal signs. Patient is neurovascularly intact in his bilateral upper extremities with full range of motion.. Differential diagnosis includes acute on chronic cervicalgia versus muscle spasm versus torticollis etc. I had a shared decision-making discussion with the patient regarding his LEONARDO presentation and findings. Via patient directed decision making and discharge patient does not feel that he has any new symptoms, he does not want to do blood work or imaging and simply requests Toradol. I discussed with him whether or not he has tried IM steroids in the past and he reports that he has not. I offered in addition to the IM Toradol shot of IM steroids as well. Patient was agreeable to that. He also requested referral to a different pain management as he would like different options and he is currently getting with shots and injections. Given this I consider doing labs and imaging for LEONARDO but deferred at the patient's request. Initial intervention will be 30 mg IM Toradol and 125 IM of Solu-Medrol which patient agreed to. Additionally patient would like a referral to pain management and I will refer him to Dr. Rodriguez. Given this patient is appropriate for discharge with close follow-up with his PCP, referral to Dr. Rodriguez of pain management and if he has any continued new or worsening signs or symptoms return to the emergency department as needed. I was consulted by the OLGA, and we discussed the complexity of problems being addressed. I approved the treatment and management plan for this patient's care in the emergency department, thus performing a substantial portion of the medical decision making. Keila Mccauley MD Critical Care <NADIR Goodson - Last Filed: 07/10/24 13:42> Critical Care Time Critical Care Time: No
[2024-07-10] MEDS: ONDANSETRON 4MG ODT 4 MG SL (12:31)
[2024-07-10] MEDS: KETOROLAC 30MG/ML VIAL 30 MG IM (12:31)
[2024-07-10] MEDS: METHYLPREDNISOLONE SOD SUCC 125MG VIAL 125 MG IM (12:31)
[2024-07-10 12:53] VITALS: BP 147/58; PULSE 87; RESP 17; TEMP 36.8; O2SAT 98
== END 2024-07-10 12:58 | disposition home or self-care (01) ==
PROVIDERS: Emergency Provider Student in an Organized Health Care Education/Training Program; PCP Family Medicine
DX: M54.2 Cervicalgia (principal)
CPT/HCPCS: 96372; 99283; J1885; J2919; Q0162

== ENCOUNTER 2024-07-16 06:08 | Emergency (ER) | payer MEDICARE, OTHER, SELFPAY ==
[2024-07-16] VITALS (7 sets, daily range): BP systolic 108–128; BP diastolic 66–88; PULSE 82–89; RESP 16; TEMP 36.5; O2SAT 91–95; BMI 30.4
[2024-07-16 06:39] LABS: Coronavirus 19, PCR Not Detected (NotDetected); Influenza A, PCR Not Detected (NotDetected); Influenza B, PCR Not Detected (NotDetected)
--- NOTE | 2024-07-16 07:10 | HMH.EDGENADL ---
Discharge Plan Disposition Patient Disposition: Home, Self-Care Condition: Good Prescriptions Prescriptions: New doxycycline hyclate 100 mg capsule 100 mg PO BID 7 Days Qty: 14 0RF No Action aspirin 81 mg tablet,delayed release (DR/EC) 81 mg PO DAILY oxycodone-acetaminophen 10-325 mg tablet 1 tab PO Q6H Patient Comments: TAKE 1 TABLET EVERY 6 HOURS multivitamin Tablet 1 tab PO DAILY gabapentin 100 mg tablet 100 mg PO TID Qty: 90 0RF cyclobenzaprine 10 mg tablet 10 mg PO BID 30 Days Qty: 60 2RF Entresto 24-26 mg tablet 1 tab PO BID Qty: 180 3RF simvastatin 40 mg tablet 40 mg PO DAILY 30 Days Qty: 30 2RF clonazepam [Klonopin] 2 mg tablet 2 mg PO BID 30 Days Qty: 60 2RF spironolactone 25 mg tablet See Rx Instructions .ROUTE .COMPLEX Qty: 60 2RF Dose Instruction: TAKE 1 TABLET 2 TIMES EACH DAY FOR SWELLING Rx Instructions: TAKE 1 TABLET 2 TIMES EACH DAY FOR SWELLING bumetanide 1 mg tablet See Rx Instructions .ROUTE .COMPLEX Qty: 60 2RF Dose Instruction: TAKE 1 TABLET 2 TIMES EACH DAY FOR SWELLING Rx Instructions: TAKE 1 TABLET 2 TIMES EACH DAY FOR SWELLING diclofenac sodium 75 mg tablet,delayed release (DR/EC) 75 mg PO BID 30 Days Qty: 60 2RF ondansetron 4 mg tablet,disintegrating 4 mg PO QID PRN (Reason: nausea and vomiting) Qty: 10 0RF Referrals Follow up/Referrals: Jose R Rosario MD [Primary Care Provider] - See instructions Activity Restrictions/Add. Instructions Additional Instructions/Restrictions: As we discussed, given your upper respiratory symptoms and sick contacts, it is likely that you have developed a community-acquired pneumonia. Your labs are overall reassuring and do not show an elevated white count, your x-ray does show that you have fluid on the outside of your lung which is unchanged from prior x-rays. I believe this may be contributing to some degree to your symptoms but is unlikely to be causing your new symptoms especially with sick contacts. I prescribed a course of antibiotics, please follow-up with your primary care doctor. Please return with any new or worsening symptoms. Clinical Impressions Clinical Impression: CAP (community acquired pneumonia) Print Language Print Language: Azeri Discharge ED Provider: Tyler,Adalberto General Adult HPI General Chief complaint: Upper Respiratory Infection Stated complaint: cough, chest congestion, pain Time Seen by Provider: 07/16/24 07:09 Mode of Arrival: Ambulatory Source of Information: Patient Description of Symptoms (Recalled from ER Triage Doc. by RN): patient has had a cough since around 10 pm. Took tylenol cold and flu around 330am. It has not helped and he has been unable to sleep because of the cough. History of Present Illness HPI narrative: Patient presents for nonproductive cough, gradual in onset, constant, stable in course, with associated sleeplessness. Denies any substernal chest pain at this time, denies any pleuritic component. Denies any exertional onset. Denies any orthopnea. Denies any changes in medications or new medications no syncope or presyncope no recent travel or leg pain or leg swelling.. Patient does have history of CAD but denies any history of similar symptoms. No numbness or tingling. Patient has had recent sick contacts. Please note that above description of symptoms, in this electronic medical record under categorization of recalled from ER triage doctor by RN are reflective of an initial nursing assessment, however, is not reflective of my full history and physical exam that was personally taken and clarified. Consequentially, this preceding description of symptoms, which may include the patient's categorized chief complaint in the EMR, do not reflect my personal clinical impression, and the ultimate description of history of present illness and patient stated complaints should be deferred to this section of the note. Unless stated otherwise or congruent with this section of the note, additional signs, symptoms, or incongruence should be interpreted as inaccurate with my clinical impression. Related Data Home Medications ?Medication ?Instructions ?Recorded ?Confirmed aspirin 81 mg tablet,delayed 81 mg PO DAILY 03/01/23 06/30/24 release multivitamin 1 tab PO DAILY 07/16/23 06/30/24 oxycodone-acetaminophen 10 mg-325 1 tab PO Q6H 02/24/24 06/30/24 mg tablet Previous Rx's ?Medication ?Instructions ?Recorded cyclobenzaprine 10 mg tablet 10 mg PO BID 30 days #60 tabs 07/30/23 sacubitril 24 mg-valsartan 26 mg 1 tab PO BID #180 tabs 08/16/23 tablet (Entresto) clonazepam 2 mg tablet (Klonopin) 2 mg PO BID Anxiety 30 days #60 03/23/24 tabs simvastatin 40 mg tablet 40 mg PO DAILY HLD 30 days #30 tabs 03/23/24 spironolactone 25 mg tablet See Rx Instructions .Route 06/01/24 .COMPLEX #60 tabs bumetanide 1 mg tablet See Rx Instructions .Route 06/29/24 .COMPLEX #60 tabs diclofenac sodium 75 mg 75 mg PO BID Pain 30 days #60 tabs 06/29/24 tablet,delayed release gabapentin 100 mg tablet 100 mg PO TID #90 tabs 06/30/24 ondansetron 4 mg disintegrating 4 mg PO QID PRN nausea and 07/10/24 tablet vomiting #10 tabs doxycycline hyclate 100 mg capsule 100 mg PO BID 7 days #14 caps 07/16/24 Allergies Allergy/AdvReac Type Severity Reaction Status Date / Time codeine Allergy Mild Shakiness Verified 06/30/24 14:07 morphine (MORPHINE) Allergy Unknown Shakiness Verified 06/30/24 14:07 [facility] Disclaimer: The information contained in this section may have been updated after the patient was seen, as this information can be updated by other users. Medical History Numbness of lower extremity Tingling of upper extremity Numbness Pacemaker Alcohol abuse CAD (coronary artery disease) Cancer small cell carcinoma-lung Migraine History of heart attack Atrial fibrillation Surgical History History of heart artery stent H/O mitral valve repair History of open heart surgery History of appendectomy Family History Father Cancer Grandfather Cancer Sister Stroke Other Coronary artery disease Social History Smoking Status: Former smoker alcohol intake: former substance use type: denies use current occupational status: disabled and other Travel in the last 8 weeks: None household members: none housing: house marital status: current occupational exposures/hazards: No caffeine: No Have you lived/traveled outside [place] in past 30 days?: No Contact w/someone who lives/traveled outside US past 30 days?: No Exposure to someone with infectious disease in past 14 days?: No Do you have a fever (greater than 100.4 F or 38 C)?: No Have you tested positive for COVID-19: No Exposed to someone with COVID-19 in past 14 days?: No Do you have a sore throat?: No Do you have a cough?: Yes Do you have any weakness?: No Do you have any diarrhea?: No Are you experiencing any unusual bleeding?: No Do you have any muscle aches/pain?: No Do you have any abdominal pain?: No Are you experiencing loss of taste or smell?: No Other Medical History Have you received the Flu Vaccine for this season: Yes Have you received the Pneumonia Vaccine: No ROS Obtained: Yes other As per HPI Physical Exam General General appearance: alert and in no apparent distress Head Head exam: atraumatic and normocephalic Eye Eye exam: Present normal appearance Neck Neck exam: Present normal inspection Chest Chest inspection: Present normal inspection and symmetric chest wall rise Respiratory Respiratory exam: Present normal lung sounds bilaterally; Absent respiratory distress Cardiovascular Cardiovascular exam: Present regular rate and normal rhythm Abdominal Exam Abdominal exam: Present soft Neurological Exam Neurological exam: Present alert and oriented X3 Psychiatric Psychiatric exam: Present normal affect and normal mood Skin Skin exam: Present warm and dry Medical Decision Making Medical Records Medical records reviewed: Yes I reviewed the patient's medical records. Screening: Per USPSTF and CDC recommendations, given the prevalence of disease in our region, it is our hospital?s policy to screen for HIV and viral Hepatitis for all patients aged 18 and over and those with ongoing risk factors. [place] Inquiry Pt receiving controlled substance: No Vital Signs: 07/16/24 06:19 07/16/24 06:20 07/16/24 06:31 Temperature 97.7 F Temperature Source Oral Pulse Rate 87 83 Pulse Rate [Right Radial] 89 Respiratory Rate 16 Blood Pressure 108/66 L Blood Pressure [Right Arm] 128/88 Blood Pressure Mean [Right Arm] 101 Blood Pressure Source Blood Pressure Source [Right Arm] Automatic Cuff Blood Pressure Position Blood Pressure Position [Right Arm] Supine 02 Sat by Pulse Oximetry 95 94 L 95 Oxygen Delivery Method Room Air 07/16/24 07:00 07/16/24 07:15 07/16/24 07:45 Temperature Temperature Source Pulse Rate 84 82 87 Pulse Rate [Right Radial] Respiratory Rate Blood Pressure 113/75 Blood Pressure [Right Arm] Blood Pressure Mean [Right Arm] Blood Pressure Source Blood Pressure Source [Right Arm] Blood Pressure Position Blood Pressure Position [Right Arm] 02 Sat by Pulse Oximetry 94 L 91 L 91 L Oxygen Delivery Method Room Air 07/16/24 09:21 Temperature 97.7 F Temperature Source Oral Pulse Rate 87 Pulse Rate [Right Radial] Respiratory Rate 16 Blood Pressure 113/75 Blood Pressure [Right Arm] Blood Pressure Mean [Right Arm] Blood Pressure Source Automatic Cuff Blood Pressure Source [Right Arm] Blood Pressure Position Sitting Blood Pressure Position [Right Arm] 02 Sat by Pulse Oximetry Oxygen Delivery Method Room Air Lab Data Lab Results 07/16/24 06:18: SARS-CoV-2 (PCR) Not detected, Influenza A Untype (PCR) Not detected, Influenza Type B (PCR) Not detected 07/16/24 07:40: WBC 9.3, RBC 5.09, Hgb 14.8, Hct 43.6, MCV 85.7, MCH 29.1, MCHC 33.9, RDW 12.7, Plt Count 208, MPV 9.2, Neut % (Auto) 62.6, Lymph % (Auto) 17.7, [place] % (Auto) 12.2 H, Eos % (Auto) 5.9, Baso % (Auto) 0.6, Neut # (Auto) 5.8, Lymph # (Auto) 1.7, [place] # (Auto) 1.1 H, Eos # (Auto) 0.6 H, Baso # (Auto) 0.1, Sodium 139, Potassium 4.7, Chloride 96 L, Carbon Dioxide 36 H, Anion Gap 11.7, BUN 27 H, Creatinine 1.20, Estimated Creat Clear 85, Estimated GFR 62, Est GFR ( Amer) 75, Glucose 94, Calcium 9.1, Total Bilirubin 0.3, AST 28, ALT 32, Alkaline Phosphatase 80, Troponin I 0.02, NT-Pro-B Natriuret Pep 295 H, Total Protein 7.2, Albumin 4.7, Globulin 2.5, Albumin/Globulin Ratio 1.9 H, Procalcitonin 0.092 07/16/24 07:40 07/16/24 07:40 Orders (Tests/Meds): ED MEDICATIONS Discontinued Medications Generic Name Dose Route Start Last Admin Trade Name Freq PRN Reason Stop Dose Admin Dexamethasone Sodium Phosphate 10 mg 07/16/24 07:45 07/16/24 07:50 Dexamethasone 4mg/Ml 1ml Vial IV 07/16/24 07:46 10 mg ONCE ONE Administration Ketorolac Tromethamine 15 mg 07/16/24 07:45 07/16/24 07:50 Ketorolac 30mg/Ml Vial IV 07/16/24 07:46 15 mg ONCE ONE Administration ORDERS Category Date Time Status XR chest 2V Stat Exams 07/16/24 07:22 Completed BNP [NT Pro Brain Natriuretic Pep.] Stat Lab 07/16/24 07:40 Completed CBC w/Auto Diff [Complete Blood Count Auto Diff] Stat Lab 07/16/24 07:40 Completed CMP [Comprehensive Metabolic Panel] Stat Lab 07/16/24 07:40 Completed Procalcitonin Stat Lab 07/16/24 07:40 Completed Rapid PCR Covid and Flu A/B Stat Lab 07/16/24 06:18 Completed Troponin I Q3H Lab 07/16/24 07:40 Completed Medical Decision Narrative: Patient with history and exam per above presenting for evaluation of cough, upper respiratory infectious symptoms Diagnoses considered include community-acquired pneumonia, low clinical index of suspicion for angina, symptoms do not appear to be consistent at this time with with volume overload or pulmonary embolism, after shared decision making we will not proceed with cardiac workup at this time. Dissection very low on differential and does not warrant further investigation based off of history and physical exam. ED workup and treatment included: ED MEDICATIONS Discontinued Medications Generic Name Dose Route Start Last Admin Trade Name Freq PRN Reason Stop Dose Admin Dexamethasone Sodium Phosphate 10 mg 07/16/24 07:45 07/16/24 07:50 Dexamethasone 4mg/Ml 1ml Vial IV 07/16/24 07:46 10 mg ONCE ONE Administration Ketorolac Tromethamine 15 mg 07/16/24 07:45 07/16/24 07:50 Ketorolac 30mg/Ml Vial IV 07/16/24 07:46 15 mg ONCE ONE Administration ORDERS Category Date Time Status XR chest 2V Stat Exams 07/16/24 07:22 Completed BNP [NT Pro Brain Natriuretic Pep.] Stat Lab 07/16/24 07:40 Completed CBC w/Auto Diff [Complete Blood Count Auto Diff] Stat Lab 07/16/24 07:40 Completed CMP [Comprehensive Metabolic Panel] Stat Lab 07/16/24 07:40 Completed Procalcitonin Stat Lab 07/16/24 07:40 Completed Rapid PCR Covid and Flu A/B Stat Lab 07/16/24 06:18 Completed Troponin I Q3H Lab 07/16/24 07:40 Completed Labs were independently interpreted by me, significant for BNP 295, COVID flu negative, no leukocytosis Imaging was independently visualized and interpreted by me, significant for no acute consolidative process although symptoms consistent with community-acquired pneumonia. Patient is rhonchorous on exam in bilateral lung bases. Please refer to radiology report for full details. My clinical impression at this time is most consistent with community-acquired pneumonia I discussed my clinical impression with patient and answered all questions. At this time, the evidence for any other entities in the differential is insufficient to warrant any further testing or ED observation. This was explained to the patient. The patient was advised that persistent or worsening symptoms require further evaluation. Critical Care Critical Care Time Critical Care Time: No
--- NOTE | 2024-07-16 07:22 | XR_ITS ---
FINAL REPORT TECHNIQUE: Chest PA & Lateral CLINICAL HISTORY: Shortness of breath, cough, concern for PNA COMPARISON: 05/04/2022 FINDINGS: 2 views of the chest were performed. The heart size is normal. Sternotomy wires are present. There is a left-sided pacer. There is no acute cardiopulmonary process. A moderate left pleural effusion is stable in appearance. There is no pneumothorax. Cervical fusion hardware is seen bridging the lower cervical spine. IMPRESSION: No acute cardiopulmonary process. Stable left pleural effusion. Reviewed, Interpreted and Dictated by Brayan Najera MD Transcribed by Debbie Delacruz Authenticated and [facility]
[2024-07-16 07:47] LABS: Basophils # 0.1 K/mm3 (0-0.2); Basophils % 0.6 % (0.1-2.0); Eosinophils # 0.6 K/mm3 (0.0-0.4); Eosinophils % 5.9 % (0.1-12.0); Hematocrit 43.6 % (42.0-52.0); Hemoglobin 14.8 g/dL (14.1-18.0); Lymphocytes # 1.7 K/mm3 (0.7-4.5); Lymphocytes % 17.7 % (10-50); Mean Corpuscular HGB Conc 33.9 g/dL (31.8-35.4); Mean Corpuscular Hemoglobin 29.1 pg (27.0-31.2); Mean Corpuscular Volume 85.7 fl (80-94); Mean Platelet Volume 9.2 fl (7.4-10.4); Monocytes # 1.1 K/mm3 (0.1-1.0); Monocytes % 12.2 % (1.7-9.3); Neutrophils # 5.8 K/mm3 (1.8-7.8); Neutrophils % 62.6 % (37.0-80.0); Platelet Count 208 K/mm3 (142-424); Red Blood Count 5.09 M/mm3 (4.60-6.20); Red Cell Distribution Width 12.7 % (11.5-17.5); White Blood Count 9.3 K/mm3 (4.8-10.8)
[2024-07-16] MEDS: KETOROLAC 30MG/ML VIAL 15 MG IV (07:50)
[2024-07-16] MEDS: DEXAMETHASONE 4MG/ML 1ML VIAL 10 MG IV (07:50)
[2024-07-16 08:16] LABS: Alanine Aminotransferase 32 U/L (12-78); Albumin Level 4.7 g/dl (3.5-5.0); Albumin/Globulin Ratio 1.9 (1.1-1.8); Alkaline Phosphatase 80 U/L (38-126); Anion Gap 11.7 mEq/L (5-15); Aspartate Amino Transferase 28 U/L (17-59); Bilirubin,Total 0.3 mg/dl (0.2-1.3); Blood Urea Nitrogen 27 mg/dl (9-20); Calcium 9.1 mg/dl (8.4-10.2); Carbon Dioxide 36 mmol/L (22.0-30.0); Chloride 96 mmol/L (98-107); Creatinine Clearance Estimated 85 mL/min (50-200); Estimated Glomerular Filt Rate 62 ml/min (>60); GFR (African American) 75 ML/MIN (>60); Globulin 2.5 g/dL (1.3-3.2); Glucose 94 mg/dl (74-100); Potassium 4.7 mmoL/L (3.5-5.1); Sodium 139 mmol/L (136-145); Total Protein,Serum 7.2 g/dl (6.3-8.2)
[2024-07-16 08:28] LABS: NT Pro Brain Natriuretic Pep. 295 pg/mL (0-125); Troponin I 0.02 ng/ml (0.00-0.034)
[2024-07-16 08:34] LABS: Procalcitonin 0.092 ng/mL (0.0-2.0)
--- NOTE | 2024-07-16 09:05 | PC.NURSE ---
DR LUCAS AT BEDSIDE TO UPDATE PT
== END 2024-07-16 09:22 | disposition home or self-care (01) ==
PROVIDERS: Emergency Medicine; Emergency Provider Emergency Medicine; PCP Family Medicine
DX: J18.9 Pneumonia, unspecified organism (principal); R05.9 Cough, unspecified; Z87.891 Personal history of nicotine dependence
CPT/HCPCS: 71046; 80053; 83880; 84145; 84484; 85025; 87636; 96374; 96375; 99283; J1100; J1885

== ENCOUNTER 2024-07-27 09:52 | Outpatient (POV) | payer MEDICARE, OTHER, SELFPAY ==
--- NOTE | 2024-07-27 10:13 | EXP.PAIN.OV ---
HPI Data of Consult Patient: new to practice Consult date: 07/27/24 Requesting Physician: Tata Payton APRN Primary Care Provider: Jose R Rosario MD Consult Narrative Reason for consult: Chronic neck pain, back pain, bilateral leg neuropathy History of present illness: Mr. Bryan is a 58 year old male who presents today as a new patient. He is a referral from [facility] primary care in [place]. Patient does state that he has chronic pain throughout his neck, back and is going to his legs. He states this is gone on for years and progressively worsening. He states that he is dealt with it over the years and has had significant health history including 2 heart attacks, low back surgery, previous lung cancer history and chronic neuropathy. Patient states that he has significant pain that interferes with his ability to perform ADLs without having his pain medicine. He states the pain medicine does help and allows him to function. Patient states he has been seeing a provider in [place] and would like to switch over to our office to get this medication. Patient states that he is not interested in any injections or possible surgical interventions. He states that he tries to be very active and ride his motorcycle and still enjoy life. Patient does have a pacemaker and cannot tolerate any MRIs. Patient states that he does frequently get panic attacks when he drives in [place]. Patient was given gabapentin they are at his primary care but states he could not function and felt drunk with this medication. Patient is prescribed clonazepam and Percocet tens from an outside provider. Patient does see ZAHIRA Meyer in [place]. His Sanodval has been reviewed. CC: Tata Payton APRN [facility] Disclaimer: The information contained in this section may have been updated after the patient was seen, as this information can be updated by other users. Medical History Numbness of lower extremity Tingling of upper extremity Numbness Pacemaker Alcohol abuse CAD (coronary artery disease) Cancer small cell carcinoma-lung Migraine History of heart attack Atrial fibrillation Surgical History History of heart artery stent H/O mitral valve repair History of open heart surgery History of appendectomy Family History Father Cancer Grandfather Cancer Sister Stroke Other Coronary artery disease Social History Smoking Status: Former smoker alcohol intake: former substance use type: denies use current occupational status: disabled and other Travel in the last 8 weeks: None household members: none housing: house marital status: current occupational exposures/hazards: No caffeine: No Have you lived/traveled outside US in past 30 days?: No Contact w/someone who lives/traveled outside US past 30 days?: No Exposure to someone with infectious disease in past 14 days?: No Do you have a fever (greater than 100.4 F or 38 C)?: No Have you tested positive for COVID-19: No Exposed to someone with COVID-19 in past 14 days?: No Do you have a sore throat?: No Do you have a cough?: No Do you have any weakness?: No Do you have any diarrhea?: No Are you experiencing any unusual bleeding?: No Do you have any muscle aches/pain?: No Do you have any abdominal pain?: No Are you experiencing loss of taste or smell?: No Review of Systems Review of Systems Review of systems:: pertinent systems reviewed and negative unless documented below Review of systems (narrative): Review of Systems: General: No recent weight changes, no fever, no sleep disturbances Respiratory: No cough, no shortness of air, no recurring pulmonary infections Cardiovascular/peripheral vascular: No chest pain, no palpitations, no edema, no shortness of breath Gastrointestinal: No new onset incontinence, normal bowel movements reported Genitourinary: No new onset incontinence Musculoskeletal: Chronic back pain, neck pain, neuropathy Psychiatric: [Normal mood/affect] Neurological: [Denies weakness in extremities], [denies balance issues] Meds Home Medications and Allergies Home Medications ?Medication ?Instructions ?Recorded ?Confirmed ?Type aspirin 81 mg tablet,delayed 81 mg PO DAILY 03/01/23 06/30/24 History release multivitamin 1 tab PO DAILY 07/16/23 06/30/24 History cyclobenzaprine 10 mg tablet 10 mg PO BID 30 days #60 tabs 07/30/23 06/30/24 Rx sacubitril 24 mg-valsartan 26 mg 1 tab PO BID #180 tabs 08/16/23 06/30/24 Rx tablet (Entresto) oxycodone-acetaminophen 10 mg-325 1 tab PO Q6H 02/24/24 06/30/24 History mg tablet clonazepam 2 mg tablet (Klonopin) 2 mg PO BID Anxiety 30 days #60 03/23/24 06/30/24 Rx tabs simvastatin 40 mg tablet 40 mg PO DAILY HLD 30 days #30 tabs 03/23/24 06/30/24 Rx spironolactone 25 mg tablet See Rx Instructions .Route 06/01/24 06/30/24 Rx .COMPLEX #60 tabs bumetanide 1 mg tablet See Rx Instructions .Route 06/29/24 06/30/24 Rx .COMPLEX #60 tabs diclofenac sodium 75 mg 75 mg PO BID Pain 30 days #60 tabs 06/29/24 06/30/24 Rx tablet,delayed release gabapentin 100 mg tablet 100 mg PO TID #90 tabs 06/30/24 06/30/24 Rx ondansetron 4 mg disintegrating 4 mg PO QID PRN nausea and 07/10/24 Rx tablet vomiting #10 tabs doxycycline hyclate 100 mg capsule 100 mg PO BID 7 days #14 caps 07/16/24 Rx New Prescriptions to Start Prescriptions: Allergies Allergy/AdvReac Type Severity Reaction Status Date / Time codeine Allergy Mild Shakiness Verified 06/30/24 14:07 morphine (MORPHINE) Allergy Unknown Shakiness Verified 06/30/24 14:07 Objective Narrative: Physical Exam: General: Alert and oriented x3, no acute distress, pleasant and cooperative Lungs: Respirations even and unlabored, symmetrical chest expansion Eyes: PERRL Musculoskeletal: Unassessed Neurological: Speech clear, no gross sensory deficit Assessment and Plan *Assessment and plan (1) Chronic pain: Status: Acute Category: Medical Code(s): G89.29 - Other chronic pain Plan Patient was counseled that we are primarily an interventional pain clinic as we do more injection therapy or other conservative approaches for chronic pain. Patient states he is not interested in any injections or additional options such as a pain pump. Patient was also counseled that we could try compounded creams or muscle relaxers however he did not want to proceed forward with this option. Patient did state that he was 11 years in remission of his lung cancer. Patient did also make mention at today's visit that he can see why people go on the street to get this medication as well as that he stopped drinking once he got the oral medication however he may have to start drinking again. Patient was counseled that we are always happy to help in any way possible however we are limited regarding scheduled medications due to FDA/PRASHANT guidelines. Patient acknowledges understanding. He was not given a follow-up appointment at today's appointment. Patient has been instructed to contact the clinic with any concerns before the next appointment. Dr. Rodriguez has reviewed this note and agrees with this plan of care. This note was dictated using voice recognition software and make contain errors or omissions. All injections are used with Lidocaine, Bupivacaine and Depo Medrol. Occasionally urine drug screen is needed to verify patient's compliance with our office pain contract. This is ordered based off specific treatments related to chronic pain with the potential to abuse certain medications.
[2024-07-27 10:44] VITALS: BP 113/74; PULSE 99; RESP 18; O2SAT 98; BMI 30.9
== END 2024-07-27 23:59 | disposition home or self-care (01) ==
LOC: SC.PAIN 09:54
PROVIDERS: PCP Family Medicine; Visit Provider Nurse Practitioner Family
DX: G89.29 Other chronic pain (principal); Z73.89 Other problems related to life management difficulty; Z87.891 Personal history of nicotine dependence
CPT/HCPCS: 99202; G0463

== ENCOUNTER 2024-10-27 08:42 | Emergency (ER) | payer MEDICARE, OTHER, SELFPAY ==
--- OUTSIDE RECORDS SUMMARY | 2024-08-08 17:30 | XMS_ITS ---
Author Organization [facility] Address [address] [place] [address] Care Team Providers Care Bakery Manager Name Role Phone Armin Leone Primary Care Provider [phone] Migration, Provider Unavailable Unavailable Allergies Allergen (clinical drug ingredient) Drug/Non Drug Allergy documented on EMR Reaction Allergy Type Onset Date Status codeine Codeine Unknown Drug Allergy Active morphine Morphine Unknown Drug Allergy Active REASON FOR VISIT [facility] Conversion Encounter Medications Medication SIG (Take, Route, Frequency, Duration) Notes Start Date End Date Status Albuterol Sulfate HFA 108 (90 Base) MCG/ACT 2 puff(s) inhaled 4 times a day prn 07/14/2018 Active NORCO 325 MG-10 MG 1 TAB(S) ORALLY EVERY NIGHT pain management *Please review for potential replacement for e-prescription and drug interaction check* Active Aspirin 81 MG 1 tab(s) orally once a day for 90 days Active Cyclobenzaprine HCl 10 MG 1 tab(s) orally 3 times a day prn Active Spironolactone 25 MG TAKE 1 TABLET 2 TIMES A DAY for 90 days Active Entresto 24-26 MG 1 tab(s) orally 2 times a day Active Bumetanide 1 MG 1 tab(s) orally twice daily Active Amitriptyline HCl 50 MG 1 tab(s) orally once a day (at bedtime) for 30 day(s) 02/20/2022 Active Carvedilol 3.125 MG 1 tab(s) orally 2 times a day for 30 day(s) Active Diclofenac Sodium 75 MG 1 tab(s) orally 2 times a day for 90 days Active KlonoPIN 2 MG 1 tab(s) orally twice daily for 30 days 12/01/2021 Active Simvastatin 40 MG TAKE 1 TABLET ONCE A DAY AT BEDTIME for 90 Active Encounters Encounter Location Date Provider Diagnosis [facility]SE LUIS [address] [place] [address] 08/08/2024 Provider Migration Cervical neuralgia M54.12 Assessments Encounter Date Diagnosis (ICD Code) Assessment Notes Treatment Notes Treatment Clinical Notes Section Notes 08/08/2024 Cervical neuralgia (ICD-10 - M54.12) Plan Of Treatment Medication Medication Name Sig Start Date Stop Date Notes Amitriptyline HCl 50 MG 1 tab(s) orally once a day (at bedtime) for 30 day(s) 02/20/2022 Diclofenac Sodium 75 MG 1 tab(s) orally 2 times a day for 90 days Progress Notes * Osmani BRYANDOB:1965 (58 yo M)Acc No.[id number]:08/08/2024 Patient: Connie JEANNESKYLAROsmani Provider: Funmi willard Migration :1965 A ge:58 Y S ex:Male Date:08/08/2024 Address:[address] [place] [id number] Pcp:Armin Leone Subjective: * Chief Complaints: * 1 . [facility] Conversion Encounter. * Medical History: * Medications: T aking Carvedilol 3.125 MG Tablet 1 tab(s) orally 2 times a day , Taking Bumetanide 1 MG Tablet 1 tab(s) orally twice daily , Taking Entresto 24-26 MG Tablet 1 tab(s) orally 2 times a day , Taking NORCO 325 MG-10 MG TABLET 1 TAB(S) ORALLY EVERY NIGHT , Notes to Pharmacist: pain management *Please review for potential replacement for e-prescription and drug interaction check*, Taking Albuterol Sulfate HFA 108 (90 Base) MCG/ACT Aerosol Solution 2 puff(s) inhaled 4 times a day prn , Taking Spironolactone 25 MG Tablet TAKE 1 TABLET 2 TIMES A DAY , Taking Cyclobenzaprine HCl 10 MG Tablet 1 tab(s) orally 3 times a day prn , Taking Aspirin 81 MG Tablet Delayed Release 1 tab(s) orally once a day , Taking KlonoPIN 2 MG Tablet 1 tab(s) orally twice daily , Taking Simvastatin 40 MG Tablet TAKE 1 TABLET ONCE A DAY AT BEDTIME * Allergies: C odeine: Side Effects, Morphine. Objective: * Vitals: Assessment: * Assessment: 1. C ervical neuralgia - M54.12 (Primary) Plan: * Treatment: 2. O thers Refill Diclofenac Sodium Tablet Delayed Release, 75 MG, 1 tab(s), orally, 2 times a day, 90 days, 180 Tablet, Refills 1. * * Electronic signature of Prov ider Migration on 10/27/2024 at 08:57 AM EDT Sign off status: Pending * Provider: Funmi willard Migration Date: 0 08/08/2024 Generated for Millie goncalves/Mariaa/Antoni on: 10/27/2024 08:57 AM EDT
--- OUTSIDE RECORDS SUMMARY | 2024-08-17 06:00 | XMS_ITS | Encounter Summary ---
Author Organization [email or web address] [facility] [employer] Address [address] [place] [address] Care Team Providers Care Senior Pharmacy Technician Name Role Phone Jose R Rosario MD Primary Care Provider [phone]- [phone] Reason for Visit * Reason Comments Pacemaker /ICD Home Monitoring Encounter Details Date Type Department Care Team (Late st Contact Info) Description 08/17/2024 6:00 AM EDT Clinical Support [facility] Electrophysiology [address] [place], [place] [phone] Oneil Cummings MD [address] [place] [address] [address] [place] [address] Encounter for adjustment or management of cardiac device (Primary Dx); Ischemic cardiomyopathy; Chronic systolic congestive heart failure (HCC); AICD (automatic cardioverter/defibr illator) present Social History Tobacco Use Types Packs/Day Years Used Date Smoking Tobacco: Former Cigarettes Q uit: 2003 Smokeless Tobacco: Never Alcohol Use Standard Drinks/Week Comments Not Currently 0 (1 standard drink = 0.6 oz pur e alcohol) H/O ETOH ABUSE Humiliation, Afraid, Rape, and Kick questionnair e Answer Date Recorded Within the last year, have y ou been afraid of your partner or ex-partner? No 11/13/2023 Within the last year, have y ou been humiliated or emotionally abused in other ways by your partner or ex-partner? No Within the last year, have y ou been kicked, hit, slapped, or otherwise physically hurt by your partner or ex-partner? No 11/13/2023 Within the last year, have y ou been raped or forced to have any kind of sexual activity by your partner or ex-partner? No 11/13/2023 PHQ-2 Answer Date Recorded Patient Health Questionnaire-2 Score 0 11/13/2023 [facility] Intimate Partner Violence Answer Da te Recorded Within the last year, have y ou been afraid of your partner or ex-partner? No 11/13/2023 Within the last year, have y ou been humiliated or emotionally abused in other ways by your partner or ex-partner? No Within the last year, have y ou been kicked, hit, slapped, or otherwise physically hurt by your partner or ex-partner? No 11/13/2023 Within the last year, have y ou been raped or forced to have any kind of sexual activity by your partner or ex-partner? No 11/13/2023 Interpersonal Safety Answer Date Record ed Family or friends hurt you Not on file 05/17 Family or friends insult you Not on file 04/2024 Family or friends threaten you Not on file 0 05/17/2023 Family or friends scream or curse at you Not on file 05/17/2023 Housing Stability Answer Date Recorded Living situation today Not on file Living situation problems Not on file 2023 Family and Community Support Answer Joaquin e Recorded Help with Day to Day Activities Not on file 05/17/2023 Feeling Lonely or Isolated Not on file 05/17 Educational Attainment Answer Date Felipe rded Speak language other than Burundian at home Not on file 05/17/2023 Want help with school or training Not on file 05/17/2023 Depression Answer Date Recorded PHQ-2 Risk Not on file 05/17/2023 Disabilities Answer Date Recorded Difficulty concentrating Not on file 024 Difficulty doing errands alone Not on file 0 05/17/2023 Substance Use Answer Date Recorded Used prescription meds for non-medical reasons N ot on file 05/17/2023 Used illegal drugs past 12 months Not on file 05/17/2023 Sex and Gender Information Value Date Recorded Sex Assigned at Not on file Legal Sex Male 5:20 PM CDT Gender Identity Not on file Sexual Orientation Not on file documented as of this encounter Plan of Treatment Not on file documented as of this encounter Visit Diagnoses Diagnosis Encounter for adjustment or management of cardiac device- Primary Ischemic cardiomyopathy Other specified forms of chronic ischemic heart disease Chronic systolic congestive heart failure (HCC) AICD (automatic cardioverter/defibrillator) present Automatic implantable cardiac defibrillator in situ documented in this encounter Care Teams Senior Pharmacy Technician Relationship Specialty Start Date End Date Jose R Rosario MD [address] [place], [place] [id number] PCP - General Family Medicine 09/12/22 documented as of this encounter
--- OUTSIDE RECORDS SUMMARY | 2024-09-17 06:00 | XMS_ITS | Encounter Summary ---
Author Organization [employer] [facility] [employer] Address [address] [place] [address] Care Team Providers Care Land Sales Agent Name Role Phone Jose R Rosario MD Primary Care Provider [phone]- [phone] Reason for Visit * Reason Comments Pacemaker /ICD Home Monitoring Encounter Details Date Type Department Care Team (Late st Contact Info) Description 09/17/2024 6:00 AM EDT Clinical Support [facility] Electrophysiology [address] [place], [place] [address] Oneil Cummings MD [address] [place] [address] [address] [place] [address] Encounter for adjustment or management of cardiac [...] Date Felipe rded Speak language other than Syrian at home Not on file 05/17/2023 Want [...] situ documented in this encounter Care Teams Land Sales Agent Relationship Specialty Start Date End Date Jose R Rosario MD [address] [place], [place] [phone] PCP - General Family Medicine 09/12/22 documented as of this encounter
--- OUTSIDE RECORDS SUMMARY | 2024-10-19 05:00 | XMS_ITS | Encounter Summary ---
Author Organization [employer] [facility] [employer] Address [address] [place] [address] Care Team Providers Care Customer Account Technician Name Role Phone Jose R Rosario MD Primary Care Provider +1- [phone] Reason for Visit * Reason Comments Pacemaker /ICD Home Monitoring Encounter Details Date Type Department Care Team (Late st Contact Info) Description 10/19/2024 5:00 AM EDT Clinical Support [facility] Electrophysiology [address] [place], [place] [phone] Oneil Cummings MD [address] [place] [address] [address] [place] [address] Encounter for adjustment or management of cardiac [...] Date Felipe rded Speak language other than Nigerien at home Not on file 05/17/2023 Want [...] situ documented in this encounter Care Teams Customer Account Technician Relationship Specialty Start Date End Date Jose R Rosario MD [address] [place], [place] [phone] PCP - General Family Medicine 09/12/22 documented as of this encounter
--- OUTSIDE RECORDS SUMMARY | 2024-10-27 08:57 | XMS_ITS | Encounter Summary ---
Author Organization [employer] [facility] [employer] Address [address] [place] [address] Care Team Providers Care Soil Science Technical Officer Name Role Phone Jose R Rosario MD Primary Care Provider +1- [phone] Encounter Details Date Type Department Care Team (Late st Contact Info) Description 01/03/2017 Transcribed Document [facility] Family Medicine [address] [place] [address] ProviderRadha MD [facility] [place] [address] Social History Tobacco Use Types Packs/Day Years Used Date Smoking Tobacco: Never Assessed Sex and Gender Information Value Date Recorded Sex Assigned at Not on file Legal Sex Male 5:20 PM CDT Gender Identity Not on file Sexual Orientation Not on file documented as of this encounter Miscellaneous Notes * [employer]ner Conversion Note - Radha Ramos MD - 01/03/2017 4:30 PM CDT Patient: BASIL BRYAN Age: 51 years Sex: Male : 1965 Associated Diagnoses: None Author: KARI MCGREGOR NP Basic Information PCP: Armin Leone MD Primary Videographer: Jack Tinajero MD Chief Complaint Dyspnea History of Present Illness Mr. Bryan is a pleasant 51 y/o male who presented to [facility] today with c/o SOA, worse with minimal exertion. He has PMH of CABG x 2 and mitral valve repair with ring on 10/08/[address] Reeder at [facility]. He has recently had a repeat echo with a decreaed LVEF from 40% to 25% on 12/28/16. He denies any c/o chest pain or discomfort, no recent cough or fever and reports his only complaints of GUAJARDO with minimal activity, fatigue and an increase in swelling to lower extremities. He has had a decrease in frequency of urination over the past week and feels his prescribed diuretic therapy is not as effective as it once was. He feels his symptoms are related to starting Coreg 3.125mg this week. At time of discharge after CABG he was educated on low sodium diet, of which he is not following at home due to cost of food. He is currently eating mostly pre-packaged meals and reports no interest in eating a low sodium diet at home. Review of Systems Constitutional: Fatigue. Eye: Negative except as documented in history of present illness. Ear/Nose/Mouth/Throat: Negative except as documented in history of present illness. Respiratory: Shortness of breath. Cardiovascular: Peripheral edema. Gastrointestinal: Negative except as documented in history of present illness. Genitourinary: decreased in frequency of urination. Hematology/Lymphatics: Negative except as documented in history of present illness. Endocrine: Negative except as documented in history of present illness. Immunologic: Negative except as documented in history of present illness. Musculoskeletal: Negative except as documented in history of present illness. Integumentary: Negative except as documented in history of present illness. Neurologic: Negative except as documented in history of present illness. Psychiatric: Negative except as documented in history of present illness. Health Status Allergies (2) Active Reaction codeine Vomiting morphine Vomiting Home Medications (9) Active aspirin 81 mg oral delayed release tablet 81 mg = 1 Tab, Oral, Daily clonazePAM 2 mg oral tablet 2 mg = 1 Tab, PRN, Oral, BID Coumadin 1 mg oral tablet 1.5 mg = 1.5 Tab, Oral, Daily Crestor 20 mg oral tablet 40 mg = 2 Tab, Oral, At Bedtime cyclobenzaprine 10 mg oral tablet 10 mg = 1 Tab, PRN, Oral, TID Lasix 40 mg oral tablet 40 mg = 1 Tab, Oral, Daily [place] 10 mg-325 mg oral tablet 1 Tab, PRN, Oral, 5 Times a Day spironolactone 25 mg oral tablet 25 mg = 1 Tab, Oral, BID Zantac 300 oral tablet 300 mg = 1 Tab, Oral, BID Allergies: Allergic Reactions (Selected) Severity Not Documented Codeine- Vomiting. Morphine- Vomiting. Current medications: (Selected) Inpatient Medications Ordered influenza virus vaccine, inactivated: 0.5 mL, IntraMuscular, [id number] Documented Medications Documented Coumadin 1 mg oral tablet: 1.5 Tab, Oral, Daily, 0 Refill(s) Crestor 20 mg oral tablet: 2 Tab, Oral, At Bedtime, 0 Refill(s) Lasix 40 mg oral tablet: 1 Tab, Oral, Daily Homestead 10 mg-325 mg oral tablet: 1 Tab, Oral, 5 Times a Day, PRN: for pain, 0 Refill(s) Zantac 300 oral tablet: 1 Tab, Oral, BID aspirin 81 mg oral delayed release tablet: 1 Tab, Oral, Daily, 0 Refill(s) clonazePAM 2 mg oral tablet: 1 Tab, Oral, BID, PRN: for anxiety cyclobenzaprine 10 mg oral tablet: 1 Tab, Oral, TID, PRN: for muscle spasm spironolactone 25 mg oral tablet: 1 Tab, Oral, BID Problem list: All Problems Anxiety disorder / SNOMED CT 040189208 / Confirmed CAD (coronary artery disease) / SNOMED CT 5086288195 / Confirmed Chronic low back pain / SNOMED CT 095388722 / Confirmed Black lung disease / SNOMED CT 9782376449 / Confirmed HLD (hyperlipidemia) / SNOMED CT 20562142 / Confirmed HTN (hypertension) / SNOMED CT 4667329779 / Confirmed Stented coronary artery / SNOMED CT 2207520058 / Confirmed 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 Social & Psychosocial Habits No Data Available Past Medical History: Resolved Small cell carcinoma of left lung (057311949): Resolved., Black lung disease CAD s/p CABG VHD s/p MV repair with ring HTN HLD Cardiomyopathy Family History: No family history items have been selected or recorded. Procedure history: Cyst excision left chest wall on 09/17/2013 at 47 Years. Appendectomy in 1976 at 11 Years. heart stents x 5. Lumbar surgery L4/L5. CORONARY ARTERY BYPASS 2 CORONARY VENOUS GRAFTS (21923). Social History Social & Psychosocial Habits No Data Available . Physical Examination VS/Measurements Vitals Signs (last 24 hrs) Last Charted Minimum Maximum Temp 98.2 (JAN 03 16:04) 98.2 (JAN 03 16:04) 98.2 (JAN 03 16:04) Mon HR 87 (JAN 03 16:04) 87 (JAN 03 16:04) 87 (JAN 03 16:04) Resp Rate 16 (JAN 03 16:00) 16 (JAN 03 16:00) 16 (JAN 03 16:00) SBP 128 (JAN 03 16:04) 128 (JAN 03 16:04) 128 (JAN 03 16:04) DBP H 92 (JAN 03 16:04) H 92 (JAN 03 16:04) H 92 (JAN 03 16:04) MAP 104 (JAN 03 16:04) 104 (JAN 03 16:04) 104 (JAN 03 16:04) SpO2 98 (JAN 03 16:04) 98 (JAN 03 16:04) 98 (JAN 03 16:04) General: Alert and oriented, No acute distress. Eye: Vision unchanged. HENT: Normal hearing, Oral mucosa is moist, No pharyngeal erythema. Neck: No lymphadenopathy, No thyromegaly. Respiratory: Lungs are clear to auscultation, Respirations are non-labored, Breath sounds are equal, Symmetrical chest wall expansion, No chest wall tenderness. Cardiovascular: Normal rate, Regular rhythm, possible s4. Gastrointestinal: Soft. Lymphatics: No lymphadenopathy neck, axilla, groin. Musculoskeletal: Normal range of motion, Normal strength. Integumentary: Warm, Dry, [place]. Neurologic: Alert, Oriented, Normal sensory. Psychiatric: Cooperative, Appropriate mood & affect, Normal judgment. Review / Management No qualifying data available Cardiac Markers (Current Encounter/Past 24 Hours) No Cardiac Marker Results Found (Past 24 Hours) Blood Gases (Current Encounter/Past 24 Hours) No Blood Gas Results Found (Past 24 Hours) No Radiology Results Found Results review: No qualifying data available. 12/28/16 TTE Impression: Status post mitral valve repair. Moderate (2+) mitral regurgitation. Normal sized left ventricle. Mild left ventricular hypertrophy. Visually estimated ejection fraction 25-30%. Severe dysynchrony. Abnormal systolic strain pattern. Unable to obtain Mitral valve inflow pattern due to Prosthetic mitral valve, . Mild aortic valve regurgitation. Moderately severe (3+) tricuspid regurgitation. Moderate pulmonary hypertension. No masses or thrombi are seen. Impression and Plan IMPRESSION: A/C Systolic HF LVEF 25% per echo 12/28/16 BNP 525 at [facility] Acute Renal Insufficiency Cr. 2.1, baseline 0.9 CAD- s/p CABG x 2 10/28/16 (ALVA to LAD, SVG to RCA) VHD- s/p Mitral valve repair with ring 10/28/16 HTN HLD PLAN; IV Bumex x 1, further diuresis pending AM labs Heart failure education daily weights strict I and O Electronically signed by [facility], [facility] Conversion Human Capital Analyst Cerner at 08/23/2022 7:54 AM CDT documented in this encounter Plan of Treatment Not on file documented as of this encounter Visit Diagnoses Not on filedocumented in this encounter Care Teams Soil Science Technical Officer Relationship Specialty Start Date End Date Jose R Rosario MD [address] [place] [id number] PCP - General Family Medicine 09/12/22 documented as of this encounter
--- OUTSIDE RECORDS SUMMARY | 2024-10-27 08:57 | XMS_ITS | Referral Summary ---
Author Organization [employer] [facility] [employer] Address [address] [place] [address] Care Team Providers Care Second Officer Name Role Phone Jose R Rosario MD Primary Care Provider +1- [phone] Encounters Date Type Department Care Team Description 10/19/2024 5:00 AM EDT Clinical Support [facility] Electrophysiology [address] [place], [place] [phone] Oneil Cummings MD Encounter for adjustment or management of cardiac device (Primary Dx); Ischemic cardiomyopathy; Chronic systolic congestive heart failure (HCC); AICD (automatic cardioverter/defibri llator) present 09/17/2024 6:00 AM EDT Clinical Support [facility] Electrophysiology [address] [place] [phone] Oneil Cummings MD Encounter for adjustment or management of cardiac device (Primary Dx); Ischemic cardiomyopathy; Chronic systolic congestive heart failure (HCC); AICD (automatic cardioverter/defibri llator) present 08/17/2024 6:00 AM EDT Clinical Support [facility] Electrophysiology [address] [place] [phone] Oneil Cummings MD Encounter for adjustment or management of cardiac device (Primary Dx); Ischemic cardiomyopathy; Chronic systolic congestive heart failure (HCC); AICD (automatic cardioverter/defibri llator) present from Last 3 Months Allergies Active Allergy Reactions Criticality Noted Date Comments Codeine 04/04/2022 Other reaction(s): Vomiting Empagliflozin 05/04/2022 Morphine 04/04/2022 Other reaction(s): Vomiting 1makes me feel funny Ondansetron Low 11/30/2014 Other reaction(s): Unknown Prochlorperazine Low 11/30/2014 Other reaction(s): Unknown Medications bumetanide (BUMEX) 1 MG tablet Take 1 tablet (1 mg total) by mouth 2 (two) times daily. 03/03/2022 Active clonazePAM (KlonoPIN) 2 MG tablet Take 1 tablet (2 mg total) by mouth 2 (two) times daily as needed. 01/09/2022 Active spironolactone (ALDACTONE) 25 MG tablet Take 1 tablet (25 mg total) by mouth 2 (two) times daily. 01/11/2022 Active carvediloL (COREG) 3.125 MG tablet Take 1 tablet (3.125 mg total) by mouth 2 (two) times daily. 02/22/2023 Active Entresto 24-26 mg tablet Take 1 tablet by mouth 2 (two) times daily. 02/22/2023 Active simvastatin (ZOCOR) 40 MG tablet Take 1 tablet (40 mg total) by mouth nightly. 04/01/2023 Active aspirin 81 MG EC tablet Take 1 tablet (81 mg total) by mouth daily. 0 11/25/2023 Active diclofenac (VOLTAREN) 75 MG EC tablet Take 1 tablet (75 mg total) by mouth 2 (two) times daily. 0 01/22/2024 Active cyclobenzaprine (FLEXERIL) 10 MG tablet Take 1 tablet (10 mg total) by mouth 3 (three) times daily as needed for muscle spasms. 30 tablet 11/21/2023 Active Active Problems Problem Noted Date Diagnosed Date Encounter for adjustment or management of cardia c device 05/21/2024 Elective surgery 11/20/2023 Cervical myelopathy 11/20/2023 AICD (automatic cardioverter/defibrillator) pres ent 08/29/2023 HLD (hyperlipidemia) 04/04/2022 Chronic systolic congestive heart failure 2021 Arteriosclerosis of coronary artery 05/16/2021 Hypertension 05/16/2021 Ischemic cardiomyopathy 05/16/2021 Left bundle branch block (LBBB) 05/16/2021 Resolved Problems Problem Noted Date Diagnosed Date Resolved Date Other specified postprocedural states 01/25/2021 08/29/2023 Social History Tobacco Use Types Packs/Day Years Used Date Smoking Tobacco: Former Cigarettes Q uit: 2004 Smokeless Tobacco: Never Tobacco Cessation:Counseling Given: Not Answered Alcohol Use Standard Drinks/Week Comments Not Currently [...] Date Felipe rded Speak language other than Scottish at home Not on file 05/17/2023 Want [...] on file Sexual Orientation Not on file Last Filed Vital Signs Vital Sign Reading Time Taken Comments Blood Pressure 111/67 04/09/2024 9:47 AM EST Pulse 90 04/09/2024 9:47 AM EST Temperature 37.1 C (98.8 F) 11/22/2023 12:30 PM EDT Respiratory Rate 16 11/22/2023 8:35 AM EDT Oxygen Saturation 99% 11/22/2023 8:35 AM EDT Inhaled Oxygen Concentration - - Weight 94.3 kg (208 lb) 04/09/2024 9:47 AM EST Height 172.7 cm (5' 8 ) 04/09/2024 9:47 AM EST Body Mass Index 31.63 04/09/2024 9:47 AM EST Plan of Treatment Not on file Medical Devices Implanted Type Area Tray Drier Device Identifier Shelf Expiration Date Model / Serial / Lot Icd-01/24/2017 Implanted: (Quantity not on file) ICD MEDTRONIC AMPLIA / [id number] / Bone Vivigen Formable Bl-1600-001 - [id number] Implanted:Qty : 1 on 11/20/2023 by Claude Marion MD at [facility] IMPLANTS N/A: Spine Cervical LIFENET:LIFENET TRANSPLANT SRV 10/02/2024 BL-1600-0 01 / [id number] / Bone Vivigen Formable Bl-1600-001 - [id number] Implanted:Qty : 1 on 11/20/2023 by Claude Marion MD at [facility] IMPLANTS N/A: Spine Cervical LIFENET:LIFENET TRANSPLANT SRV 10/02/2024 BL-1600-0 / [id number] / Sealant Durasl Spine 5ml [id number] - [id number] Implanted:Qty : 1 on 11/20/2023 by Claude Marion MD at [facility] IMPLANTS N/A: Spine Cervical MEDTRONIC MIN INV THERAPY GRP 11/02/2024352973 / / [id number] Plt Ant Skyln Hybrd Lvl1 28mm 028 - [id number] Implanted:Qty : 1 on 11/20/2023 by Claude Marion MD at [facility] IMPLANTS N/A: Spine Cervical J &J:DEPUY:DEPUY SPINE 1867-05-0 28 / 0 28 / Scr Skyln Vari Sd 18mm 50-018 - [id number] Implanted:Qty : 4 on 11/20/2023 by Claude Marion MD at [facility] IMPLANTS N/A: Spine Cervical J &J:DEPUY:DEPUY SPINE 50-0 18 / 50-0 18 / Cage Interbody Bengal Stk 20mm -120 - [id number] Implanted:Qty : 1 on 11/20/2023 by Claude Marion MD at [facility] IMPLANTS N/A: Spine Cervical J &J:DEPUY:DEPUY SPINE 1 20 / 1 20 / Explanted Type Area Tray Drier Device Identifier Shelf Expiration Date Model / Serial / Lot Clip Aneur Perm Yasrg 7mm X1 [id number] - [id number] Explanted:Qty : 2 on 11/20/2023 at [facility] IMPLANTS N/A: Spine Cervical B JOSEPH MED:AESCULAP:STRATEGIC PARTNERSHIP REPRESENTATIVE NIO / / Procedures Procedure Name Priority Date/Time Associated Diagnosis Comments LIPID PANEL Routine 05/21/2023 2:22 PM EST Chronic systolic congestive heart failure (HCC) Arteriosclerosis of coronary artery Primary hypertension Ischemic myocardial dysfunction from Last 3 Months or Most Recently Relevant to Health Maintenance Results * (ABNORMAL) Lipid panel (05/21/2023 2:22 PM EST) Cholesterol, Total 192 100 - 199 mg/dL [facility] Triglycerides 354(H) 0 - 149 mg/dL [facility] HDL Cholesterol 32(L) >39 mg/dL [facility] VLDL Cholesterol Jose E 60(H) 5 - 40 mg/dL [facility] LDL Calculated 100(H) 0 - 99 mg/dL [facility] Blood 05/21/2023 2:22 PM EST 05/21/2023 Narrative [facility] - 05/22/2023 8:08 AM EST Performed at: 01 - [facility] [address] [id number] Combination Saw Operator: Mario Duran PhD, Phone: [phone] Mena Carreno PA-C LAB BLOOD ORDERABLES Fin al Result [facility] from Last 3 Months or Most Recently Relevant to Health Maintenance Insurance AETNA [facility] DUAL COMPLETE Advance Directives For more information, please contact: [phone] * Full Code (Latest Code Status on File) Date Activated Date Inactivated Comments 11/20/2023 4:59 PM 11/22/2023 5:24 PM Care Teams Second Officer Relationship Specialty Start Date End Date Jose R Rosario MD [address] [place] [id number] PCP - General Family Medicine 09/12/22
--- OUTSIDE RECORDS SUMMARY | 2024-10-27 08:57 | XMS_ITS | Clinical Summary ---
Author Organization [facility] Address [address] [place] [address] Phone Care Team Providers Care Surgery Specialist Name Role Phone Unavailable Unavailable Conditions or Problems No information available. Medications No information available. Medications Administered No information available. Allergies, Adverse Reactions, Alerts No information available. Results No information available. Plan of Care No information available. Procedures No information available. Vital Signs No information available. Immunizations No information available. Advance Directives No information available.
--- OUTSIDE RECORDS SUMMARY | 2024-10-27 08:57 | XMS_ITS | Clinical Summary ---
Author Organization [employer] Address [address] [place] [address] Care Team Providers Care Air Bag Builder Name Role Phone Jose R Rosario MD Primary Care Provider +1- [phone] Allergies Active Allergy Reactions Criticality Noted Date [...] Date Other specified postprocedural states 01/25/2021 08/29/2023 Encounters Date Type Department Care Team Description 10/19/2024 5:00 AM EDT Clinical Support [facility] Electrophysiology [address] [place], [place] [phone] Oneil Cummings MD Encounter for adjustment or management of cardiac device (Primary Dx); Ischemic cardiomyopathy; Chronic systolic congestive heart failure (HCC); AICD (automatic cardioverter/defibri llator) present 09/17/2024 6:00 AM EDT Clinical Support [facility] Electrophysiology [address] [place], [place] [phone] Oneil Cummings MD Encounter for adjustment or management of cardiac device (Primary Dx); Ischemic cardiomyopathy; Chronic systolic congestive heart failure (HCC); AICD (automatic cardioverter/defibri llator) present 08/17/2024 6:00 AM EDT Clinical Support [facility] Electrophysiology [address] [place] [phone] Oneil Cummings MD Encounter for adjustment or management of cardiac device (Primary Dx); Ischemic cardiomyopathy; Chronic systolic congestive heart failure (HCC); AICD (automatic cardioverter/defibri llator) present from Last 3 Months Social History Tobacco Use Types Packs/Day Years [...] Date Felipe rded Speak language other than Monegasque at home Not on file 05/17/2023 Want [...] 04/09/2024 9:47 AM EST Plan of Treatment Health Maintenance Due Date Last Done Comments CT Colonography 1964 Colonoscopy 1964 Colorectal Cancer Screening 1964 FOBT/FIT 1964 Fit-DNA (Cologuard) 1964 Sigmoidoscopy 1964 HIV Screening 12/20/1979 Hepatitis C Screening 1982 DTAP/TDAP/TD VACCINES (1 - Tdap) 12/20/1983 Shingles Vaccine (Zoster) (1 of 2) 2014 Pneumococcal 50+ years (2 of 2 - PCV) 02/18/2016 COVID-19 VACCINE ( - season) 2024 Medicare Initial AWV [id number] 05/07/2024 Depression Screening (12+) 11/12/2024 11/13/2023 Statin - ASCVD Risk Prevention 11/19/2024 11/20/2023 Influenza Vaccine (Season Ended) 2025 03/11/20 14 Tobacco Cessation Counseling and Screening (12+) 04/0904/09/2024 Lipid Panel 05/21/2026 05/21/2023 Medical Devices Implanted Type Area Cake Mixer Device Identifier Shelf Expiration Date Model / Serial / Lot Icd-01/24/2017 Implanted: (Quantity not on file) ICD [employer] AMPLIA / [id number] / Bone Vivigen Formable [facility]-1600-001 - [id number] Implanted:Qty : 1 on 11/20/2023 by Claude Marion MD at [facility] IMPLANTS N/A: Spine Cervical LIFENET:LIFENET TRANSPLANT SRV 10/02/2024 BL-1600-0 / [id number] / Bone Vivigen Formable [facility]-001 - [id number] Implanted:Qty : 1 on 11/20/2023 by Claude Marion MD at [facility] IMPLANTS N/A: Spine Cervical LIFENET:LIFENET TRANSPLANT SRV 10/02/2024 BL-1600-0 / [id number] / Sealant Durasl Spine 5ml [id number] - [id number] Implanted:Qty : 1 on 11/20/2023 by Claude Marion MD at [facility] IMPLANTS N/A: Spine Cervical [employer] MIN INV THERAPY GRP 11/02/2024620024 / / [id number] Plt Ant Skyln Hybrd Lvl1 28mm - [id number] Implanted:Qty : 1 on 11/20/2023 by Claude Marion MD at [facility] IMPLANTS N/A: Spine Cervical J &J:DEPUY:DEPUY SPINE 28 / 28 / Scr Skyln Vari Sd 18mm 1867-50-018 - [id number] Implanted:Qty : 4 on 11/20/2023 by Claude Marion MD at [facility] IMPLANTS N/A: Spine Cervical J &J:DEPUY:DEPUY SPINE 850-0 18 / 50-0 18 / Cage Interbody Bengal Stk 20mm 177-120 - [id number] Implanted:Qty : 1 on 11/20/2023 by Claude Marion MD at [facility] IMPLANTS N/A: Spine Cervical J &J:DEPUY:DEPUY SPINE 20 / 20 / Explanted Type Area Cake Mixer Device Identifier Shelf Expiration Date Model / Serial / Lot Clip Aneur Perm Yasrg 7mm X1 [id number] Explanted:Qty : 2 on 11/20/2023 at [facility] IMPLANTS N/A: Spine Cervical B JOSEPH MED:AESCULAP:VMWARE ENGINEER NIO [id number] / [id number] / Procedures Procedure Name Priority Date/Time Associated [...] - 05/22/2023 8:08 AM EST Performed at: [address] [place] [id number] Consultant Nurse: Mario Duran PhD, Phone: [phone] Mena Carreno PA-C LAB BLOOD ORDERABLES Fin al Result [facility] from Last 3 Months or Most Recently Relevant to Health Maintenance Insurance AETNA [facility] ADV DUAL COMPLETE Advance Directives For more information, please contact: [phone] * Full Code (Latest Code Status on File) Date Activated Date Inactivated Comments 11/20/2023 4:59 PM 11/22/2023 5:24 PM Care Teams Air Bag Builder Relationship Specialty Start Date End Date Jose R Rosario MD [address] [place] [id number] PCP - General Family Medicine 09/12/22
--- OUTSIDE RECORDS SUMMARY | 2024-10-27 08:58 | XMS_ITS | Encounter Summary ---
Author Organization [facility] [employer] Address [address] [place] [address] Care Team Providers Care Bereavement Counselor Name Role Phone Jose R Rosario MD Primary Care Provider +1- [phone] Encounter Details Date Type Department Care Team (Late st Contact Info) Description 07/25/2023 Telephone [facility] [address] [place] [address] Venus Cheney Social History Tobacco Use Types Packs/Day Years Used Date Smoking Tobacco: Former Smokeless Tobacco: Never Alcohol Use Standard Drinks/Week Comments Not Currently 0 (1 standard drink = 0.6 oz pur e alcohol) seldom Interpersonal Safety Answer Date Record ed Family [...] Date Felipe rded Speak language other than Bulgarian at home Not on file 05/17/2023 Want [...] as of this encounter Miscellaneous Notes * Telephone Encounter - Venus Cheney - 10/01/2024 11:13 AM EDT I spoke with patient * Telephone Encounter - Venus Cheney - 08/05/2023 5:22 AM EDT I spoke the nurse about mr khoury was needing a nerve conduction test , and I explained that was not possible with his device documented in this encounter Plan of Treatment Not on file documented as of this encounter Visit Diagnoses Not on filedocumented in this encounter Care Teams Bereavement Counselor Relationship Specialty Start Date End Date Jose R Rosario MD [address] [place] [phone] PCP - General Family Medicine 09/12/22 documented as of this encounter
--- OUTSIDE RECORDS SUMMARY | 2024-10-27 08:58 | XMS_ITS | Clinical Summary ---
Author Organization [facility] Address [address] [place] [address] Care Team Providers Care Baby Formula Mixer Name Role Phone Jose R Rosario MD Primary Care Provider Nano vailable Allergies Active Allergy Reactions Criticality Noted Date Comments Ondansetron Unknown - Patient st ates they do not know rxn details Low 11/30/2014 Prochlorperazine Unknown - Patient st ates they do not know rxn details Low 11/30/2014 Medications bumetanide (Bumex) 1 MG tablet TAKE 2 TABLETS 1 TIME EACH DAY 04/06/2021 Active clonazePAM (KlonoPIN) 2 MG tablet As needed Active HYDROcodone-rimma taminophen ([place]) 10-325 MG tablet TAKE 1 TABLET EVERY 4 TO 6 HOURS 04/03/2021 Active carvedilol (Coreg) 3.125 MG tablet TAKE 1 TABLET 2 TIMES EACH DAY WITH MEALS. 11/23/2020 Active losartan (Cozaar) 25 MG tablet TAKE 1 TABLET 1 TIME EACH DAY. 11/23/2020 Active Entresto 24-26 MG tablet TAKE 1 TABLET 2 TIMES EACH DAY 04/06/2021 Active simvastatin (Zocor) 40 MG tablet TAKE 1 TABLET 1 TIME EACH DAY AT BEDTIME 03/06/2021 Active Praluent 75 MG/ML solution auto-injector INJECT THE CONTENTS OF 1 SYRINGE UNDER THE SKIN EVERY 14 DAYS 04/12/2022 Active atorvastatin (Lipitor) 40 MG tablet TAKE 1 TABLET 1 TIME EACH DAY AT BEDTIME 01/11/2022 Active Vitamin D3 1.25 MG (22101 UT) capsule TAKE 1 CAPSULE 1 TIME EACH WEEK FOR 8 WEEKS. THEN, TAKE 1 CAPSULE 1 TIME EACH MONTH. 09/28/2022 Active cyclobenzaprine (Flexeril) 10 MG tablet Take 1 tablet (10 mg) by mouth. Active diclofenac (Voltaren) 75 MG EC tablet Take 1 tablet (75 mg) by mouth twice a day. 03/07/2022 Active metoprolol succinate XL (Toprol-XL) 25 MG 24 hr tablet Take 1 tablet (25 mg) by mouth 1 (one) time each day. Active rosuvastatin (Crestor) 40 MG tablet Take 1 tablet (40 mg) by mouth 1 (one) time each day. Active spironolactone (Aldactone) 25 MG tablet TAKE 1 TABLET 2 TIMES EACH DAY FOR SWELLING 10/23/2022 Active Entresto 49-51 MG tablet TAKE 1 TABLET 2 TIMES EACH DAY, IN THE MORNING AND BEFORE BEDTIME. 11/12/2022 Active Social History Tobacco Use Types Packs/Day Years Used Date Smoking Tobacco: Every Day PHQ-2A Answer Date Recorded Depression Risk 0 11/29/2022 Sex and Gender Information Value Date Recorded Sex Assigned at Not on file Legal Sex Male 7:57 PM EDT Gender Identity Not on file Sexual Orientation Not on file Last Filed Vital Signs Vital Sign Reading Time Taken Comments Blood Pressure 112/76 11/29/2022 2:21 PM EDT Pulse 85 11/29/2022 2:21 PM EDT Temperature 36.6 C (97.9 F) 11/29/2022 2:21 PM EDT Respiratory Rate 16 11/29/2022 2:21 PM EDT Oxygen Saturation 98% 11/29/2022 2:21 PM EDT Inhaled Oxygen Concentration - - Weight 96.6 kg (212 lb 15.4 oz) 11/29/2022 2:21 PM EDT Height 172.7 cm (5' 8 ) 11/29/2022 2:21 PM EDT Body Mass Index 32.38 11/29/2022 2:21 PM EDT Plan of Treatment Health Maintenance Due Date Last Done Comments Dental Oral Exam 1964 Dental Prophylaxis 1964 Dental X-Ray: Bitewings 1964 [facility]-HIV Screening 1964 [facility]-Hepatitis C Screening 1964 [facility]-Medic[facility] Annual Wellness (AWV) 1964 [facility]-Infant/Child/Adol SDOH Screenings 1964 [facility]-EDWNI-06 Vaccine (#1) 1969 [facility]-Obesity Intervention 1970 [facility]- SDOH Screenings 1982 [facility]-Adult SDOH Screenings 1982 [facility]-Hepatitis B Vaccines (1 of 3 - 19+ 3-dose series) 12/20/1983 [facility]-Zoster Vaccines (1 of 2) 12/20/1983 CT Colonography 2009 Colonoscopy 2009 FIT-DNA 2009 FIT 2009 FOBT 2009 Sigmoidoscopy 2009 [facility]-Colorectal Cancer Screening 2009 Dental X-Ray: Full Mouth 01/18/2010 01/17/2007 [facility]-DTaP,Tdap,and Td Vaccines (1 - Tdap) 08/09/2013 08/08/2013 [facility]-Pneumococcal Vaccine: 50+ Years (2 of 2 - PCV) 02/18/2016 02/17/2015 [facility]-Depression Screening 11/30/2023 11/29/2022 [facility]-Influenza Vaccine (Season Ended) 2025 03/01/2023, 03/24/2022, 01/05/2021, Additional history exists HPV Vaccines Aged Out No longer eligi ble based on patient's age to complete this topic [facility]-HIB Vaccines Aged Out No longer e ligible based on patient's age to complete this topic [facility]-Hepatitis A Vaccines Aged Out No longer eligible based on patient's age to complete this topic [facility]-IPV Vaccines Aged Out No longer e ligible based on patient's age to complete this topic [facility]-Rotavirus Vaccines Aged Out No lo nger eligible based on patient's age to complete this topic Procedures Procedure Name Priority Date/Time Associated Diagnosis Comments PANORAMIC RADIOGRAPHIC IMAGE Routine 01/17/2007 12:00 AM EDT from Last 3 Months or Most Recently Relevant to Health Maintenance Insurance AETNA [facility] MEDICAID [facility] MEDICARE Care Teams Baby Formula Mixer Relationship Specialty Start Date End Date Jose R Rosario MD PCP - General Family Medicine 05/23/22
--- OUTSIDE RECORDS SUMMARY | 2024-10-27 08:58 | XMS_ITS | Patient Health Record ---
Author Organization [facility] Address [address] [place] [address] Care Team Providers Care Mother'S Helper Name Role Phone Patrick Leonehen Primary Care Provider [phone] Migration, Provider Unavailable Unavailable Allergies Allergen (clinical drug ingredient) Drug/Non Drug Allergy documented on EMR Reaction Allergy Type Onset Date Status codeine Codeine Unknown Drug Allergy Active morphine Morphine Unknown Drug Allergy Active Reason For Referral No Information Medications Medication SIG (Take, Route, Frequency, Duration) Notes Start Date End Date Status Albuterol Sulfate HFA 108 (90 Base) MCG/ACT 2 puff(s) inhaled 4 times a day prn 07/14/2018 Active NORCO 325 MG-10 MG 1 TAB(S) ORALLY EVERY NIGHT pain management *Please review for potential replacement for e-prescription and drug interaction check* Active Entresto 24-26 MG 1 tab(s) orally 2 times a day Active Bumetanide 1 MG 1 tab(s) orally twice daily Active KlonoPIN 2 MG 1 tab(s) orally twice daily for 30 days 12/01/2021 Active Aspirin 81 MG 1 tab(s) orally once a day for 90 days Active Cyclobenzaprine HCl 10 MG 1 tab(s) orally 3 times a day prn Active Spironolactone 25 MG TAKE 1 TABLET 2 TIMES A DAY for 90 days Active Amitriptyline HCl 50 MG 1 tab(s) orally once a day (at bedtime) for 30 day(s) 02/20/2022 Active Simvastatin 40 MG TAKE 1 TABLET ONCE A DAY AT BEDTIME for 90 Active Carvedilol 3.125 MG 1 tab(s) orally 2 times a day for 30 day(s) Active Diclofenac Sodium 75 MG 1 tab(s) orally 2 times a day for 90 days Active Immunizations Vaccine Route Administration Date Status Comme nts Pneumovax 23 IM Intramuscular 02/17/2015 Administered Influenza (Fluzone)--Medicare only IM Intramuscular 03/11/2014 Administered Influenza (Fluzone)--Medicare only IM Intramuscular 02/17/2015 Administered Influenza (Fluzone)--Medicare only IM Intramuscular 12/24/2017 Administered FLUZONE 6MO - OLDER IM Intramuscular 02/25/2019 Administer ed FLUZONE 6MO - OLDER IM Intramuscular 01/05/2021 Administer ed Problems Problem Type SNOMED Code ICD Code Onset Dates Problem Status W/U Status Risk Notes Problem 923348728 Neuropathy (G62.9) Active confirmed Problem 476721919 Hyperlipemia, idiopathic familial (E78.5) Active confirmed Problem 015154890 GERD without esophagitis (K21.9) Active confirmed Problem 82383388 Hypertension, essential (I10) Active confirmed Problem 519710484 Pacemaker (Z95.0) Active confirmed Problem 581797855 BMI 32.0-32.9,ad ult (Z68.32) Active confirmed Problem 2391914887353 Atherosclerosis of [place] coronary artery of [place] heart without angina pectoris (I25.10) Active confirmed Problem 99557643 Anxiety, generalized (F41.1) Active confirmed Problem 11417838 Arthralgia of multiple sites (M25.50) Active confirmed Encounters Encounter Location Date Provider Diagnosis [facility] IM PED JOSE LUIS [address] [place] [address] 08/08/2024 Provider Migration Cervical neuralgia M54.12 Assessments Encounter Date Diagnosis (ICD Code) Assessment Notes Treatment Notes Treatment Clinical Notes Section Notes 08/08/2024 Cervical neuralgia (ICD-10 - M54.12) Plan Of Treatment Pending Test Test Name Order Date M-Complete Blood Count Auto Diff 019 M-Complete Blood Count Auto Diff 021 M-Comprehensive Metabolic Panel 07/27/19 21 M-Comprehensive Metabolic Panel 02/26/20 19 M-Lipid Panel 02/25/2019 M-Lipid Panel 07/26/2020 M-Thyroid Stimulating Hormone 07/26/2020 M-Vitamin B12 07/26/2020 MRI : Cervical spine without contrast Insurance Providers Payer Name Payer Address Payer Phone Subscriber Number Group Number Insured Name Patient Relationship to Insured Coverage Start Date Coverage End Date [facility] Plan Medicare Advantage [address] [address] [place] [address] [phone] [id number] Osmani Bryan Self - patient is the insured [facility] [address] [address] [place] [address] [id number] Osmani Bryan Self - patient is the insured Medications Administered Medication Instructions Date of Administration Dosage Notes Cyanocobalamin/B-12 Pt's Own Medication 05/25/2013 Testosterone 03/20/2013 1 Testosterone 04/06/2013 1 Testosterone 05/01/2013 1 Testosterone 05/11/2013 1 Medical (General) History Medical History History ICD Code small cell carcinoma - Lung. 2007, s/p c hemo and radiation at coronary artery disease myocardial infarction x 2 hypertension anxiety arthritis B12 vitamin deficiency Colonoscopy 12/22 with tubular adenomas - 2 Mitral valve repair Pacemaker History of alcohol and tobacco abuse Surgical History Surgery Date(Month/Year) appendectomy cardiac stents x4 back open heart surgery 10/2016 pacemaker 11/2016 Hospitalization History Reason Date(Month/Year) uknown medication reaction open heart surgery 10/2016 pacemaker 11/2016
[2024-10-27 09:00] VITALS: BP 123/85; PULSE 93; O2SAT 95
[2024-10-27 09:05] VITALS: BP 128/74; PULSE 96; RESP 20; TEMP 37.1; O2SAT 95; BMI 29.7
[2024-10-27 09:06] LABS: Microscopic, Urine URINE MICROSCOPIC (MICROSCOPIC)
[2024-10-27 09:08] LABS: Appearance,Urine CLEAR (Clear); Bilirubin,Urine Negative (Negative); Blood, Urine TRACE-L (Negative); Color,Urine YELLOW (Yellow); Glucose,Urine (UA) Negative (Negative); Ketones,Urine Negative (Negative); Leukocyte Esterase,Urine Negative (Negative); Nitrate,Urine Negative (Negative); PH,Urine 8.5 (5.0-8.5); Protein,Urine Negative (Negative); Urobilinogen,Urine 0.2 EU/dl (0.2)
--- NOTE | 2024-10-27 09:11 | ECG_ITS ---
APPROVED REPORT Exam: Resting ECG HR:87 bpm ECG Measurements Heart Rate 87 AXES CO 140 P 88 QRSd 161 QRS 232 QT 417 T 66 QTc 461 Conclusion ELECTRONIC VENTRICULAR PACEMAKER ABNORMAL RHYTHM ECG UNCONFIRMED REPORT Electronically signed by : CYDNEY CARDENAS, 10/28/2024 06:32:15
[2024-10-27 09:14] LABS: Basophils # 0.1 K/mm3 (0-0.2); Basophils % 0.4 % (0.1-2.0); Eosinophils # 0.2 Kmm3 (0.0-0.4); Eosinophils % 0.9 % (0.1-12.0); Hematocrit 42.3 % (42.0-52.0); Hemoglobin 14.6 g/dL (14.1-18.0); Immature Granulocytes # 0.06 10^3uL; Immature Granulocytes % 0.4 %; Lymphocytes # 1.1 K/mm3 (0.7-4.5); Lymphocytes % 6.6 % (10-50); Mean Corpuscular HGB Conc 34.5 g/dL (31.8-35.4); Mean Corpuscular Hemoglobin 29.9 pg (27.0-31.2); Mean Corpuscular Volume 86.7 fl (80-94); Mean Platelet Volume 9.3 fl (7.4-10.4); Monocytes # 1.4 K/mm3 (0.1-1.0); Monocytes % 8.2 % (1.7-9.3); Neutrophils # 13.9 K/mm3 (1.8-7.8); Neutrophils % 83.5 % (37.0-80.0); Nucleated Red Blood Cells # 0 10^3/uL; Nucleated Red Blood Cells % 0 %; Platelet Count 238 K/mm3 (142-424); Red Blood Count 4.88 M/mm3 (4.60-6.20); Red Cell Distribution Width 12.2 % (11.5-17.5); Red Cell Distribution Width-SD 38.8 fL; White Blood Count 16.6 K/mm3 (4.8-10.8)
--- NOTE | 2024-10-27 09:19 | XR_ITS ---
FINAL REPORT TECHNIQUE: Single view chest CLINICAL HISTORY: soa with exertion COMPARISON: 07/16/2024 FINDINGS: A single view of the chest was obtained. The heart and mediastinum are within normal limits. There is a moderate left pleural effusion, similar to prior exam. Compressive atelectasis is seen at the left lung base. Right lung is clear. There are postoperative changes of mitral valve repair. A left pacemaker is noted. There is no pneumothorax. IMPRESSION: Stable, moderate left pleural effusion. Reviewed, Interpreted and Dictated by Hardeep Walsh MD Transcribed by Qian Castillo Authenticated and . [facility]
--- NOTE | 2024-10-27 09:20 | ED_ITS ---
Discharge Plan Disposition Patient Disposition: Home, Self-Care Prescriptions Prescriptions: New meclizine 50 mg tablet 50 mg PO BID PRN (Reason: dizziness) Qty: 60 1RF No Action aspirin 81 mg tablet,delayed release (DR/EC) 81 mg PO DAILY oxycodone-acetaminophen 10-325 mg tablet 1 tab PO Q6H Patient Comments: TAKE 1 TABLET EVERY 6 HOURS multivitamin Tablet 1 tab PO DAILY gabapentin 100 mg tablet 100 mg PO TID Qty: 90 0RF betamethasone dipropionate 0.05 % lotion 1 applic topical DAILY Qty: 60 2RF cyclobenzaprine 10 mg tablet 10 mg PO BID 30 Days Qty: 60 2RF simvastatin 40 mg tablet 40 mg PO DAILY 30 Days Qty: 30 2RF spironolactone 25 mg tablet See Rx Instructions .ROUTE .COMPLEX Qty: 60 2RF Dose Instruction: TAKE 1 TABLET 2 TIMES EACH DAY FOR SWELLING Rx Instructions: TAKE 1 TABLET 2 TIMES EACH DAY FOR SWELLING bumetanide 1 mg tablet See Rx Instructions .ROUTE .COMPLEX Qty: 60 2RF Dose Instruction: TAKE 1 TABLET 2 TIMES EACH DAY FOR SWELLING Rx Instructions: TAKE 1 TABLET 2 TIMES EACH DAY FOR SWELLING diclofenac sodium 75 mg tablet,delayed release (DR/EC) 75 mg PO BID 30 Days Qty: 60 2RF Entresto 24-26 mg tablet 1 tab PO BID Qty: 180 3RF clonazepam [Klonopin] 2 mg tablet 2 mg PO BID 30 Days Qty: 60 2RF ondansetron 4 mg tablet,disintegrating 4 mg PO QID PRN (Reason: nausea and vomiting) Qty: 10 0RF Referrals Follow up/Referrals: Jose R Rosario MD [Primary Care Provider, Internal Medicine] - See instructions Claude Vaca MD [Staff Physician, Cardiology] - See instructions Activity Restrictions/Add. Instructions Additional Instructions/Restrictions: Call your family doctor to establish care for this visit to the emergency department and schedule follow-up within 48 hours to ensure improvement. If you have any worsening of your condition or any other concerning signs or symptoms, return to the emergency department or your primary care doctor for further evaluation. Follow-up with them regarding your elevated BNP to track this number and to make sure that is trending downward. You may need more water pills in order to help a trend downward. Elevated BNP leads to swelling and potentially worsening of the fluid around your left lung. These would be symptoms you should watch for to know if you need increases in your meds. Be sure to follow-up with cardiology (Dr. Vaca) to have formal stress testing and potentially cardiac catheterization, as cardiac etiology cannot be completely ruled out today. Clinical Impressions Clinical Impression: Dizziness, Back pain, Vomiting Print Language Print Language: Kinyarwanda Discharge ED Provider: Daniel Simon General Adult HPI General Chief complaint: PAIN Stated complaint: vomiting weakness headache frequent urination Time Seen by Provider: 10/27/24 08:47 Mode of Arrival: Ambulatory Source of Information: Patient Description of Symptoms (Recalled from ER Triage Doc. by RN): Patient presents to ED with c/o related to dizziness, nausea, upper back pain, and painful urination. Patient states this all started over the weekend. History of Present Illness HPI narrative: Please note that above description of symptoms, in this electronic medical record under categorization of recalled from ER triage doctor by RN are reflective of an initial nursing assessment, however, is not reflective of my full history and physical exam that was personally taken and clarified. Consequentially, this preceding description of symptoms, which may include the patient's categorized chief complaint in the EMR, do not reflect my personal clinical impression, and the ultimate description of history of present illness and patient stated complaints should be deferred to this section of the note. Unless stated otherwise or congruent with this section of the note, additional signs, symptoms, or incongruence should be interpreted as inaccurate with my clinical impression. Related Data Home Medications ?Medication ?Instructions ?Recorded ?Confirmed aspirin 81 mg tablet,delayed 81 mg PO DAILY 03/01/23 0 08/11/24 release multivitamin 1 tab PO DAILY 07/16/23 04/0 12/28 oxycodone-acetaminophen 10 mg-325 1 tab PO Q6H 4 08/11/24 mg tablet Previous Rx's ?Medication ?Instructions ?Recorded cyclobenzaprine 10 mg tablet 10 mg PO BID 30 days #60 tabs 07/30/23 simvastatin 40 mg tablet 40 mg PO DAILY HLD 30 days # 30 tabs 03/23/24 gabapentin 100 mg tablet 100 mg PO TID #90 tabs 06/30 ondansetron 4 mg disintegrating 4 mg PO QID PRN nausea and 07/10/24 tablet vomiting #10 tabs betamethasone dipropionate 0.05 % 1 applic topical SEBASTIÁN LY itching #60 08/11/24 lotion mL spironolactone 25 mg tablet See Rx Instructions .Route 08/31/24 .COMPLEX #60 tabs bumetanide 1 mg tablet See Rx Instructions .Route 0 09/29/24 .COMPLEX #60 tabs clonazepam 2 mg tablet (Klonopin) 2 mg PO BID Anxiety 30 days #60 09/29/24 tabs diclofenac sodium 75 mg 75 mg PO BID Pain 30 days #6 0 tabs 09/29/24 tablet,delayed release sacubitril 24 mg-valsartan 26 mg 1 tab PO BID #180 tab s 09/29/24 tablet (Entresto) meclizine 50 mg tablet 50 mg PO BID PRN dizziness # 60 tabs 10/27/24 Allergies Allergy/AdvReac Type Severity Reaction Status Date / Time codeine Allergy Mild Shakiness Verified 08/11/24 13:53 morphine (MORPHINE) Allergy Unknown Shakiness Verified 08/11/24 13:53 [facility] Disclaimer: The information contained in this section may have been updated after the patient was seen, as this information can be updated by other users. Medical History Numbness of lower extremity Tingling of upper extremity Numbness Pacemaker Alcohol abuse CAD (coronary artery disease) Cancer small cell carcinoma-lung Migraine History of heart attack Atrial fibrillation Surgical History History of heart artery stent H/O mitral valve repair History of open heart surgery History of appendectomy Family History Father Cancer Grandfather Cancer Sister Stroke Other Coronary artery disease Social History Smoking Status: Never smoker alcohol intake: former substance use type: denies use current occupational status: unemployed Travel in the last 8 weeks?: None household members: none housing: house marital status: current occupational exposures/hazards: No caffeine: No Have you lived/traveled outside [place] in past 30 days?: No Contact w/someone who lives/traveled outside US past 30 days?: No Exposure to someone with infectious disease in past 14 days?: No Do you have a fever (greater than 100.4 F or 38 C)?: No Have you tested positive for COVID-19?: No Exposed to someone with COVID-19 in past 14 days?: No Do you have a sore throat?: No Do you have a cough?: No Do you have any weakness?: Yes Do you have any diarrhea?: No Are you experiencing any unusual bleeding?: No Do you have any muscle aches/pain?: No Do you have any abdominal pain?: No Are you experiencing loss of taste or smell?: No Other Medical History Have you received the Flu Vaccine for this season: No (OBTAINED FROM DR. ROSARIO RECORDS) Have you received the Pneumonia Vaccine: No ROS Obtained: Yes All systems reviewed & no additional complaints except as documented Physical Exam General General appearance: alert and in no apparent distress Head Head exam: atraumatic and normocephalic Eye Eye exam: Present normal appearance, PERRL and EOMI Neck Neck exam: Present normal inspection, full ROM and trachea midline Respiratory Respiratory exam: Present other (Speaking in full sentences); Absent respiratory distress, wheezes, stridor, accessory muscle use or prolonged expiratory phase Cardiovascular Cardiovascular exam: Present regular rate, normal rhythm and other (Pulses equal symmetric in upper and lower extremities) Abdominal Exam Abdominal exam: Present soft; Absent distention, tenderness or pulsatile mass Extremities Exam Extremities exam: Absent edema Neurological Exam Neurological exam: Present alert, oriented X3 and CN II-XII intact; Absent motor sensory deficit Skin Skin exam: Present warm and dry; Absent diaphoresis or erythema Medical Decision Making Medical Records Medical records reviewed: Yes I reviewed the patient's medical records. Screening: Per USPSTF and CDC recommendations, given the prevalence of disease in our region, it is our hospital?s policy to screen for HIV and viral Hepatitis for all patients aged 18 and over and those with ongoing risk factors. Sandoval Inquiry Pt receiving controlled substance: No Sandoval was queried for this patient: No Vital Signs: 10/27/24 09:00 10/27/24 09:05 10/27/24 09:30 Temperature 98.7 F Temperature Source Oral Pulse Rate 93 H Pulse Rate [Right Brachial] 96 H Respiratory Rate 20 17 Blood Pressure 123/85 104/65 L Blood Pressure [Right Arm] 128/74 Blood Pressure Mean [Right Arm] 92 Blood Pressure Source Blood Pressure Source [Right Arm] Automatic Cuff Blood Pressure Position Blood Pressure Position [Right Arm] Sitting 02 Sat by Pulse Oximetry 95 95 Oxygen Delivery Method Room Air 10/27/24 10:00 10/27/24 10:30 10/27/24 11:16 Temperature 98.8 F Temperature Source Oral Pulse Rate 82 78 78 Pulse Rate [Right Brachial] Respiratory Rate 17 17 20 Blood Pressure 105/63 L 90/62 L 113/90 Blood Pressure [Right Arm] Blood Pressure Mean [Right Arm] Blood Pressure Source Automatic Cuff Blood Pressure Source [Right Arm] Blood Pressure Position Sitting Blood Pressure Position [Right Arm] 02 Sat by Pulse Oximetry 96 95 Oxygen Delivery Method Room Air Lab Data Lab Results 10/27/24 08:47: Urine Color Yellow, Urine Appearance Clear, Urine pH 8.5, Ur Specific Edwards 1.010, Urine Protein Negative, Urine Glucose (UA) Negative, Urine Ketones Negative, Urine Blood Trace-l, Urine Nitrate Negative, Urine Bilirubin Negative, Urine Urobilinogen 0.2, Ur Leukocyte Esterase Negative, Urine RBC None, Urine WBC 10-20, Ur Squamous Epith Cells 3-5, Urine Bacteria Trace 10/27/24 09:02: WBC 16.6 H, RBC 4.88, Hgb 14.6, Hct 42.3, MCV 86.7, MCH 29.9, MCHC 34.5, RDW 12.2, Plt Count 238, MPV 9.3, Neut % (Auto) 83.5 H, Lymph % (Auto) 6.6 L, [place] % (Auto) 8.2, Eos % (Auto) 0.9, Baso % (Auto) 0.4, Neut # (Auto) 13.9 H, Lymph # (Auto) 1.1, [place] # (Auto) 1.4 H, Eos # (Auto) 0.2, Baso # (Auto) 0.1, Sodium 134 L, Potassium 4.8, Chloride 98, Carbon Dioxide 33 H, Anion Gap 7.8, BUN 18, Creatinine 1.20, Estimated Creat Clear 83, Estimated GFR 62, Est GFR ( Amer) 75, Glucose 113 H, Calcium 10.3 H, Magnesium 2.1, Total Bilirubin 0.8, AST 26, ALT 23, Alkaline Phosphatase 73, Troponin I 0.02, N T-Pro-B Natriuret Pep 560 H, Total Protein 7.9, Albumin 4.8, Globulin 3.1, Albumin/Globulin Ratio 1.5, HCV Ab MEGAN w/Rflx PCR Qn Negative, HIV Ag/Ab Combo Qual Negative 10/27/24 09:02 10/27/24 09:02 Orders (Tests/Meds): ORDERS Category Date Time Status CXR --portable [XR chest portable] Stat Exams 10/27/24 09:19 Completed CBC w/Auto Diff [Complete Blood Count Auto Diff] Stat Lab 10/27/24 09:02 Completed CMP [Comprehensive Metabolic Panel] Stat Lab 10/27/24 09:02 Completed HIV Combo Stat Lab 10/27/24 09:02 Completed Hepatitis C Ab Qual. W/ RFX Stat Lab 10/27/24 09:02 Completed MAG [Magnesium] Stat Lab 10/27/24 09:02 Completed NT Pro Brain Natriuretic Pep. Stat Lab 10/27/24 09:02 Completed Trop I [Troponin I] Stat Lab 10/27/24 09:02 Completed Troponin I Q3H Lab 10/27/24 12:15 Ordered Troponin I Q3H Lab 10/27/24 15:15 Ordered UA [Urinalysis and Microscopic] Stat Lab 10/27/24 08:47 Completed Urine Culture Stat Micro 10/27/24 08:47 Received Medical Decision Narrative: 58-year-old male presenting with multiple complaints. He states that Saturday, 3 days prior to his visit, he was riding his bike when he felt a burning between his shoulder blades, felt nauseated and vomited a few times. He states this was also after he swallowed a large piece of meat and it seemed to get stuck after which he started vomiting as well. He thinks these were related. It was also over 100 degrees when he was riding his bike a couple days prior to this. Also stating he has been short of breath. No dark or discolored urine, but does state that he is having difficulty urinating. Patient states that his discomfort is mostly exertional, but also intermittently having the nausea and pain in the absence of exertion. He states that he does have nitroglycerin at home, did not use it for this indication. He states that if you take nitroglycerin and your pain does not go away, it is not heart. Guidance given in this regard stating that nitroglycerin does not completely relieve all chest pain and it could be related to cardiac pain, especially if pain does not go away. He voiced his understanding, but states that he feels he understands the pain in his body. Thinks this may just be elated to a pinched nerve at his back as sometimes when he leans to the left, the pain eases off, which is standard for his back pain. Patient does have a history of hypertension, hyperlipidemia, CAD status post CABG, cardiomyopathy with pacemaker defibrillator in place, CHF, mitral valve repair, chronic neck and back pain. History was obtained via conversation with patient. On arrival, patient hemodynamically stable, alert, oriented x4, appropriate, GCS 15, moving all extremities spontaneously, pupils equal and reactive to light. Full physical exam performed and significant for well-appearing male no acute distress. Speaking in full sentences. He is nontachycardic and normotensive. Pulses equal and symmetric in upper and lower extremities. Grossly neurologically intact. No respiratory distress, oxygenating appropriately. Differential includes CAD, ACS, GA, esophagitis, esophageal spasm, CHF exacerbation, MSK, among others Patient placed on continuous cardiac monitoring and continuous pulse ox with initial blood pressure 128/74, heart rate 96, saturation 95% on room air. Independent interpretation of EKG shows V paced rhythm 87 bpm with negative NH 140, QRS wide at 161, QTc 461. Changes consistent with paced ventricle left bundle branch morphology. Wandering baseline. Patient does have concordant ST depression in V2 with what appears to be mild elevation lead III -appears to be right around 25%, if less. I spoke to cardiology: with wandering baseline, no current symptoms,Amenable to outpatient follow-up. In the interpretation of workup with mild leukocytosis 16.6 specific, patient not having any infectious signs or symptoms. Sodium a little low at 134 with normal kidney function. Initial troponin negative at 0.02 and, given patient about 3 days out from symptoms, delta troponin not deemed necessary. Especially in the setting of no current symptoms. BNP mildly elevated at 560, however chest x-ray with stable left pleural effusion with stable number of ribs able to be seen clearly. I feel stable of pleural effusion likely secondary to CABG. Urinalysis unremarkable. On reevaluation, patient still asymptomatic. States that he thinks that the lightheadedness/dizziness that he has been experiencing is all with changes in head motion. States that he has difficulty lying back flat and when he turns his head too quick he gets dizzy. Has always had vertigo and dizziness in this regard ever since he was young kid. Does not have any meclizine left, requesting refill and I feel this is appropriate. Prolonged discussion had with patient regarding need for outpatient cardiology follow-up. He voiced his understanding. He is agreeable to following up. [facility] with Dr. Vaca's team, information for referral placed in patient's discharge instruction. Given patient presentation, workup, history, this most likely represents stable angina versus acute on chronic back pain versus SI spasm. Less likely dissection given no neurodeficits, nontachycardic, normotensive here and pulses equal and symmetric and intact. Also unlikely to be acute ACS given complete resolution in symptoms at rest, negative workup otherwise. Because patient at baseline without signs or symptoms of clinical decompensation, deemed appropriate for discharge. Results were relayed to patient who voiced understanding and were agreeable to outpatient management and follow up. I discussed my clinical impression with patient and answered all questions. At this time, the evidence for any other entities in the differential is insufficient to warrant any further testing or ED observation. This was explained as well. Advisory was given that persistent or worsening symptoms require further evaluation. I confirmed the understanding of this discussion. Converter Supervisor disclaimer Much of this encounter note is an electronic supervisor firearms spoken language to printed text. Electronic supervisor firearms of the spoken language may permit errors. Although I have reviewed the note, some errors may still exist. Critical Care Critical Care Time Critical Care Time: No
[2024-10-27 09:30] VITALS: BP 104/65; RESP 17
[2024-10-27 09:40] LABS: Bacteria,Urine Trace /lpf
[2024-10-27 09:44] LABS: Alanine Aminotransferase 23 U/L (12-78); Albumin Level 4.8 g/dl (3.5-5.0); Albumin/Globulin Ratio 1.5 (1.1-1.8); Alkaline Phosphatase 73 U/L (38-126); Anion Gap 7.8 mEq/L (5-15); Aspartate Amino Transferase 26 U/L (17-59); Bilirubin,Total 0.8 mg/dl (0.2-1.3); Blood Urea Nitrogen 18 mg/dl (9-20); Calcium 10.3 mg/dl (8.4-10.2); Carbon Dioxide 33 mmol/L (22.0-30.0); Chloride 98 mmol/L (98-107); Creatinine Clearance Estimated 83 mL/min (50-200); Estimated Glomerular Filt Rate 62 ml/min (>60); GFR (African American) 75 ML/MIN (>60); Globulin 3.1 g/dL (1.3-3.2); Glucose 113 mg/dl (74-100); Magnesium 2.1 mg/dl (1.6-2.3); Potassium 4.8 mmoL/L (3.5-5.1); Sodium 134 mmol/L (136-145); Total Protein,Serum 7.9 g/dl (6.3-8.2)
[2024-10-27 09:52] LABS: NT Pro Brain Natriuretic Pep. 560 pg/mL (0-125)
[2024-10-27 09:55] LABS: Troponin I 0.02 ng/ml (0.00-0.034)
[2024-10-27 10:00] VITALS: BP 105/63; PULSE 82; RESP 17; O2SAT 96
[2024-10-27 10:30] VITALS: BP 90/62; PULSE 78; RESP 17; O2SAT 95
[2024-10-27 10:37] LABS: HIV Combo NEGATIVE (Negative)
[2024-10-27 10:46] LABS: Hepatitis C Ab Qual. W/ RFX NEGATIVE (Negative)
[2024-10-27 11:16] VITALS: BP 113/90; PULSE 78; RESP 20; TEMP 37.1; O2SAT 98
== END 2024-10-27 11:21 | disposition home or self-care (01) ==
PROVIDERS: Emergency Provider Emergency Medicine; PCP Family Medicine
DX: R11.2 Nausea with vomiting, unspecified (principal); R42 Dizziness and giddiness; M54.6 Pain in thoracic spine
CPT/HCPCS: 71045; 80053; 81001; 83735; 83880; 84484; 85025; 86803; 87086; 87389; 93005; 99284